=== PATIENT | male | born 1960 | race Caucasian/White ===

== ENCOUNTER 2018-05-02 16:34 | Inpatient (IN) ==
[2018-05-02] MEDS ORDERED: Nitroglycerin 0.4 MG TAB.SUBL SL PRN (16:47)
--- NOTE | 2018-05-02 16:51 | Emergency Department Note ---
Disposition Clinical Impression: Unstable angina pectoris Disposition: Admitted As Inpatient Condition: Serious Chest Pain HPI - General Stated Complaint: chest pain Time Seen by Provider: 05/02/18 16:40 Source: patient Mode of arrival: ambulatory Limitations: no limitations Vital Signs Reviewed: Yes Nursing Notes Reviewed: Yes - History of Present Illness HPI Narrative: 58 yo male presents to the ED with chest pain that started about one hour ago. He describes this as a heaviness in the center of his chest that radiates to his back and down both arms. He rates this as the worst pain in his life, saying it is a 10 out of 10. He also feels sweaty and short of breath with this episode. He denies feeling confused or dizzy at this time. He denies fevers, chills, abdominal pain, nausea, vomiting, leg pains. He admits to feeling weak.He states that he had a similar episode to this night that woke him from sleep. This episode lasted about 30 minutes and then went away on its own. He has no history of previous heart attack, or other heart problems besides high blood pressure. His father of a heart attack. He has family history of blood clots and strokes. He has diabetes but no other medical problems. Severity scale (1-10): 10 - Related Data Home Medications Medication Instructions Recorded Confirmed Furosemide [Lasix] 20 mg PO DAILY 04/01/17 01/07/18 Insulin ASPART [NovoLOG] 14 - 24 unit SQ TIDWM 04/01/17 01/07/18 Insulin DETEMIR [Levemir] 40 unit SQ HS 04/01/17 01/07/18 Lisinopril [Zestril] 10 mg PO DAILY 04/01/17 01/07/18 Pioglitazone [Actos] 15 mg PO 0800 04/01/17 01/07/18 Potassium Chloride [Klor-Con 10] 10 meq PO DAILY 04/01/17 01/07/18 Ipratropium [place] 2 spr NS BID 01/07/18 01/07/18 Allergies Allergy/AdvReac Type Severity Reaction Status Date / Time Amoxicillin Allergy Hives Verified 01/07/18 08:52 wheat Allergy Swelling Verified 01/07/18 08:52 of Lip/Tongue/Throat All systems ED: reviewed and negative except as stated. Review of Systems: As Per HPI Constitutional: Reports: as per HPI Cardiovascular: Reports: chest pain Respiratory: Reports: cough (Nonproductive), dyspnea. Denies: wheezes Gastrointestinal: Denies: abdominal pain, nausea, vomiting Chest Pain PMH - Past Medical History Medical history: Reports: arthritis, diabetes, hypertension, kidney stones Surgical history: Reports: cholecystectomy Psychiatric history: Reports: no psych history - Social History Smoking Status: Former smoker (1 pack per day for 20 years, quit over 20 years ago) Alcohol use: Reports: none Drug use: Reports: none Physical Exam Patient appears extremely anxious on exam. His eyes are watering and he looks fearful. He clutches his arm over his chest and repeatedly states that it is hard to breathe because of the heaviness over his chest. The chest pain is not reproducible to palpation. There is no rash over his chest. There are no retractions when he breathes. Heart sounds are loud, but no audible murmurs are present. Distal pulses 2+ in all extremities. Blood pressure is elevated ( 180-200/90s) in both arms. He denies paresthesias or other neurological symptoms in his extremities. - General Limitations: no limitations General appearance: in distress Course - Consultations Consultation #1: Dr. Dodge spoke with Dr. Andrew at 1800. Dr. Andrew is okay with plan of action of bring patient into the hospital, continuing nitroglycerin drip, starting heparin and adding Brilinta to the patient's medications. He states that if the patient's pain cannot be relieved by the nitroglycerin to give him a call back. Time: 18:05 Vital Signs Temperature 0 F L 05/02/18 16:39 Pulse Rate 105 05/02/18 16:39 Respiratory Rate 18 05/02/18 16:39 Blood Pressure 200/128 05/02/18 16:39 O2 Sat by Pulse Oximetry 100 05/02/18 16:39 Temperature 0 F L 05/02/18 16:39 Pulse Rate 99 05/02/18 18:07 Respiratory Rate 22 05/02/18 18:07 Blood Pressure 158/113 05/02/18 18:07 O2 Sat by Pulse Oximetry 99 05/02/18 18:07 Oxygen Delivery Oxygen Delivery Nasal Cannula Chest Pain - [facility] Narrative Medical decision making narrative: 1715 - patient's complaints are concerning for an aortic dissection. Will send to CAT scan for CT of the chest abdomen and pelvis with contrast before getting lab results back. Will order nitroglycerin trial 3 doses for chest pain followed by a repeat EKG. Since patient already chewed 2 baby aspirin today, we will not give additional aspirin. If patient's pain is alleviated by nitroglycerin we will consider doing a nitroglycerin drip. CBC, BMP, troponin, EKG ordered. 1732 - troponin came back elevated at 0.12. Patient is now back from CT scan. After continuation of nitroglycerin trial, he rates his pain as a 5 out of 10. Repeat EKG is similar to his first EKG year. Will start nitro drip and give a fluid bolus. After read from CT scan shows negative dissection, we will start heparin treatment. Will put the call out to cardio and likely admit this patient. 1799 - CT scan was negative for aortic dissection. We will begin low-dose heparin treatment protocol and add Brilinta into as per Dr. Andrew's recommendations. We will place a call out to the hospitalist for admission of this patient as soon as all lab results are back. 1918 - patient is now on 50 mics nitro drip with chest pain that he rates as a 7 out of 10. He has been given fentanyl, Brilinta, heparin. His EKG is now showing a sinus arrhythmia. Dr. Andrew has been called again and he stated he will come [facility] the [facility]. 2006 - Dr. Andrew is here and has seen the patient. He has agreed to take him to the catheter lab [facility]. 2099 - patient has departed for catheter lab. - Medical Records Medical records reviewed: Yes I reviewed the patient's medical records. - Lab Data Lab results reviewed: Yes I reviewed the patient's lab results. Result diagrams: 05/02/18 16:44 05/02/18 16:44 Lab Results 05/02/18 05/02/18 05/02/18 Range/Units 16:44 16:44 17:36 WBC 12.8 H (4.3-11.1) K/mcL RBC 5.85 H (4.19-5.50) M/mcL Hgb 16.8 (12.9-16.9) g/dL Hct 49.8 (37.5-50.1) % MCV 85.1 (83.0-100.0) fL MCH 28.7 (28.0-33.3) pg MCHC 33.7 (31.6-35.5) g/dL RDW 14.5 (11.5-14.5) % Plt Count 280 (140-400) K/mcL MPV 10.1 (9.4-12.4) fL Immature Gran % 0.4 (0-4) % Seg Neutrophils % 69.7 % Lymphocytes % 19.3 % Monocytes % 8.8 % Eosinophils % 1.3 % Basophils % 0.5 % Neutrophils # 8.9 (1.6-8.9) K/mcL Lymphocytes # 2.5 (0.6-4.6) K/mcL Monocytes # 1.1 (0.0-1.3) K/mcL Eosinophils # 0.2 (0.0-0.6) K/mcL Basophils # 0.1 (0.0-0.2) K/mcL Immature Plt Fraction 4.2 (1.1-6.1) % PT 11.7 (9.4-12.1) Seconds INR 1.0 APTT 30.5 (26.0-36.0) Seconds Heparin Anti-Xa, Unfract 0.01 L (0.30-0.70) IU/mL Sodium 138 (136-145) mEq/L Potassium 4.1 (3.5-5.1) mEq/L Chloride 105 (98-107) mEq/L Carbon Dioxide 21 L (23-29) mEq/L BUN 18 (6-20) mg/dL Creatinine 1.40 H (0.70-1.30) mg/dL Est GFR ( Amer) > 60 (> 60) Est GFR (Non-Af Amer) 52 L (> 60) BUN/Creatinine Ratio 13 (6-26) Glucose 170 H (70-105) mg/dL Calculated Osmolality 292 (280-300) Calcium 9.9 (8.6-10.3) mg/dL Troponin I 0.12 H* (< 0.04) ng/mL Blood Type Antibody Screen 05/02/18 Range/Units 17:36 WBC (4.3-11.1) K/mcL RBC (4.19-5.50) M/mcL Hgb (12.9-16.9) g/dL Hct (37.5-50.1) % MCV (83.0-100.0) fL MCH (28.0-33.3) pg MCHC (31.6-35.5) g/dL RDW (11.5-14.5) % Plt Count (140-400) K/mcL MPV (9.4-12.4) fL Immature Gran % (0-4) % Seg Neutrophils % % Lymphocytes % % Monocytes % % Eosinophils % % Basophils % % Neutrophils # (1.6-8.9) K/mcL Lymphocytes # (0.6-4.6) K/mcL Monocytes # (0.0-1.3) K/mcL Eosinophils # (0.0-0.6) K/mcL Basophils # (0.0-0.2) K/mcL Immature Plt Fraction (1.1-6.1) % PT (9.4-12.1) Seconds INR APTT (26.0-36.0) Seconds Heparin Anti-Xa, Unfract (0.30-0.70) IU/mL Sodium (136-145) mEq/L Potassium (3.5-5.1) mEq/L Chloride (98-107) mEq/L Carbon Dioxide (23-29) mEq/L BUN (6-20) mg/dL Creatinine (0.70-1.30) mg/dL Est GFR ( Amer) (> 60) Est GFR (Non-Af Amer) (> 60) BUN/Creatinine Ratio (6-26) Glucose (70-105) mg/dL Calculated Osmolality (280-300) Calcium (8.6-10.3) mg/dL Troponin I (< 0.04) ng/mL Blood Type A POSITIVE Antibody Screen NEGATIVE - Radiology Data Radiology results reviewed: Yes I reviewed the patient's radiology results. - EKG Data EKG attestation: Yes I reviewed and interpreted this EKG. EKG results narrative: 1640 - ventricular rate 107 bpm, [place] interval 136 MS, QRS duration 141 MS, QT/ QTC ratio 359/421 MS, right axis deviation. Sinus tachycardia with marked right axis deviation greater than 100. Right bundle branch block. No changes when compared to old EKG with the exception of the new tachycardia. 1719 - repeat EKG after nitroglycerin trial. Ventricular rate 103 bpm, [place] interval 162 MS, QRS duration 135 MS, QT/QTC ratio 370/429 MS, right axis deviation. Sinus tachycardia with marked right axis deviation and right bundle branch block that is unchanged from his previous EKG. minimal ST segment elevation in the inferior leads which do not meet criteria for STEMI. 191 - repeat EKG due to returning chest pain even on nitroglycerin drip. Ventricular rate 73 bpm, [place] interval 160 MS, QRS duration 123 MS, QT/QTC ratio 399/425 MS, right axis. Sinus rhythm with marked sinus arrhythmia. This is a change from his previous EKGs. Minimal ST elevations in inferior leads not meeting criteria for STEMI as seen on his previous EKG. Heart Score - Score History: Highly Suspicious EKG: Non Specific repolarisation Disturbance Age: 45-65 Risk Factors: 1-2 risk factors Troponin: Greater than 3x normal limit HEART Score Total: 7
[2018-05-02] MEDS ORDERED: Isovue-370 500 ML INFUS..BTL IV ONE (16:55)
[2018-05-02 17:06] LABS: Basophils # 0.1 K/mcL (0.0-0.2); Basophils % 0.5 %; Eosinophils # 0.2 K/mcL (0.0-0.6); Eosinophils % 1.3 %; Hematocrit 49.8 % (37.5-50.1); Hemoglobin 16.8 g/dL (12.9-16.9); Immature Granulocytes % 0.4 % (0-4); Immature Platelets 4.2 % (1.1-6.1); Lymphocytes # 2.5 K/mcL (0.6-4.6); Lymphocytes % 19.3 %; Mean Corpuscular HGB Conc 33.7 g/dL (31.6-35.5); Mean Corpuscular Hemoglobin 28.7 pg (28.0-33.3); Mean Corpuscular Volume 85.1 fL (83.0-100.0); Mean Platelet Volume 10.1 fL (9.4-12.4); Monocytes # 1.1 K/mcL (0.0-1.3); Monocytes % 8.8 %; Neutrophils # 8.9 K/mcL (1.6-8.9); Platelet Count 280 K/mcL (140-400); Red Blood Count 5.85 M/mcL (4.19-5.50); Red Cell Distribution Width 14.5 % (11.5-14.5); Segmented Neutrophils % 69.7 %
--- NOTE | 2018-05-02 17:06 | Emergency Department Note ---
Disposition Clinical Impression: Unstable angina pectoris Disposition: Admitted As Inpatient Condition: Serious Instructions: Chest Pain (ED) Referrals: Shakira Jackson CNP [Primary Care Provider] - Forms: ED Satisfaction Letter General Adult HPI - General Chief complaint: ED Chest Pain Stated complaint: chest pain Time Seen by Provider: 05/02/18 16:40 Source: patient Mode of arrival: ambulatory Limitations: no limitations Nursing Notes Reviewed: Yes Vital Signs Reviewed: Yes - History of Present Illness Pain Scale: 10 - Related Data Home Medications Medication Instructions Recorded Confirmed Furosemide [Lasix] 20 mg PO DAILY 04/01/17 01/07/18 Insulin ASPART [NovoLOG] 14 - 24 unit SQ TIDWM 04/01/17 01/07/18 Insulin DETEMIR [Levemir] 40 unit SQ HS 04/01/17 01/07/18 Lisinopril [Zestril] 10 mg PO DAILY 04/01/17 01/07/18 Pioglitazone [Actos] 15 mg PO 0800 04/01/17 01/07/18 Potassium Chloride [Klor-Con 10] 10 meq PO DAILY 04/01/17 01/07/18 Ipratropium [place] 2 spr NS BID 01/07/18 01/07/18 Allergies Allergy/AdvReac Type Severity Reaction Status Date / Time Amoxicillin Allergy Hives Verified 01/07/18 08:52 wheat Allergy Swelling Verified 01/07/18 08:52 of Lip/Tongue/Throat Past Medical History - Past Medical History Medical history: Reports: arthritis, diabetes, hypertension, kidney stones Surgical history: Reports: cholecystectomy Psychiatric history: Reports: no psych history - Social History Smoking Status: Former smoker Smokeless Tobacco Status: No Alcohol use: Reports: none Drug use: Reports: none Physical Exam - General Limitations: no limitations General appearance: in distress Course Vital Signs Temperature 0 F L 05/02/18 16:39 Pulse Rate 105 05/02/18 16:39 Respiratory Rate 18 05/02/18 16:39 Blood Pressure 200/128 05/02/18 16:39 O2 Sat by Pulse Oximetry 100 05/02/18 16:39 Temperature 0 F L 05/02/18 16:39 Pulse Rate 99 05/02/18 18:07 Respiratory Rate 22 05/02/18 18:07 Blood Pressure 158/113 05/02/18 18:07 O2 Sat by Pulse Oximetry 99 05/02/18 18:07 Oxygen Delivery Oxygen Delivery Nasal Cannula Medical Decision Making - MDM Narrative Medical decision making narrative: Patient is back from CT after 2 nitros his pain went from a 10 down to a 5. Blood pressure does come down to systolic 150. Restroom on IV nitroglycerin. If his CTA is negative for dissection or aneurysm we will start him on heparin. We will speak with cardiology. He will need admission. Abdomen/Pelvis CTA 05/02/18 16:55 IMPRESSION: 1. No evidence of aortic aneurysm or dissection. 2. No acute abnormality within the chest, abdomen, and pelvis. 3. Small fat-containing umbilical hernia with associated mild inflammatory change. 4. Enlarged prostate with evidence for chronic bladder outlet obstruction. D/ / Jose Manuel Durham MD / Jose Manuel Durham MD Interpreting Provider: Jose Manuel Durham MD Chest CTA 05/02/18 16:55 IMPRESSION: 1. No evidence of aortic aneurysm or dissection. 2. No acute abnormality within the chest, abdomen, and pelvis. 3. Small fat-containing umbilical hernia with associated mild inflammatory change. 4. Enlarged prostate with evidence for chronic bladder outlet obstruction. D/ / Jose Manuel Durham MD / Jose Manuel Durham MD Interpreting Provider: Jose Manuel Durham MD 1800 hrs.: Radiology said no signs of aortic aneurysm or dissection. We will start him on heparin. Spoke with cardiology, Dr. Shaw is on, talked to about the case and EKGs. He said to go and start him blunt and aspirin which patient started him. And then we will bring him into the hospital. He said there is any other pain issues are he starts having pain again to go ahead and give them a call. We will speak with hospitalist. 1930 hrs.: Patient continued to have pain despite his medications. He had an episode where his pain almost went completely away and when he started around the IV pain medicine and nitroglycerin his pain would go up and then down. DVT EKG still showed ischemia pattern but do show some minor ST segment elevation in lead 3 and aVF. I spoke with cardiology again, Dr. Shaw is can come to see the patient. He may need to go to [facility]. This gets cardiology. We will get a bed for him on 2 N. and then determine best disposition. [address] Shaw here has seen the patient. He will take the patient to the [facility]. He does not not meet criteria for [facility] alert but he asked us to page it as a STEMI alert to get the team here quicker. - Lab Data Result diagrams: 05/02/18 16:44 05/02/18 16:44 Lab Results 05/02/18 05/02/18 05/02/18 Range/Units 16:44 16:44 17:36 WBC 12.8 H (4.3-11.1) K/mcL RBC 5.85 H (4.19-5.50) M/mcL Hgb 16.8 (12.9-16.9) g/dL Hct 49.8 (37.5-50.1) % MCV 85.1 (83.0-100.0) fL MCH 28.7 (28.0-33.3) pg MCHC 33.7 (31.6-35.5) g/dL RDW 14.5 (11.5-14.5) % Plt Count 280 (140-400) K/mcL MPV 10.1 (9.4-12.4) fL Immature Gran % 0.4 (0-4) % Seg Neutrophils % 69.7 % Lymphocytes % 19.3 % Monocytes % 8.8 % Eosinophils % 1.3 % Basophils % 0.5 % Neutrophils # 8.9 (1.6-8.9) K/mcL Lymphocytes # 2.5 (0.6-4.6) K/mcL Monocytes # 1.1 (0.0-1.3) K/mcL Eosinophils # 0.2 (0.0-0.6) K/mcL Basophils # 0.1 (0.0-0.2) K/mcL Immature Plt Fraction 4.2 (1.1-6.1) % PT 11.7 (9.4-12.1) Seconds INR 1.0 APTT 30.5 (26.0-36.0) Seconds Heparin Anti-Xa, Unfract 0.01 L (0.30-0.70) IU/mL Sodium 138 (136-145) mEq/L Potassium 4.1 (3.5-5.1) mEq/L Chloride 105 (98-107) mEq/L Carbon Dioxide 21 L (23-29) mEq/L BUN 18 (6-20) mg/dL Creatinine 1.40 H (0.70-1.30) mg/dL Est GFR ( Amer) > 60 (> 60) Est GFR (Non-Af Amer) 52 L (> 60) BUN/Creatinine Ratio 13 (6-26) Glucose 170 H (70-105) mg/dL Calculated Osmolality 292 (280-300) Calcium 9.9 (8.6-10.3) mg/dL Troponin I 0.12 H* (< 0.04) ng/mL Blood Type Antibody Screen 05/02/18 Range/Units 17:36 WBC (4.3-11.1) K/mcL RBC (4.19-5.50) M/mcL Hgb (12.9-16.9) g/dL Hct (37.5-50.1) % MCV (83.0-100.0) fL MCH (28.0-33.3) pg MCHC (31.6-35.5) g/dL RDW (11.5-14.5) % Plt Count (140-400) K/mcL MPV (9.4-12.4) fL Immature Gran % (0-4) % Seg Neutrophils % % Lymphocytes % % Monocytes % % Eosinophils % % Basophils % % Neutrophils # (1.6-8.9) K/mcL Lymphocytes # (0.6-4.6) K/mcL Monocytes # (0.0-1.3) K/mcL Eosinophils # (0.0-0.6) K/mcL Basophils # (0.0-0.2) K/mcL Immature Plt Fraction (1.1-6.1) % PT (9.4-12.1) Seconds INR APTT (26.0-36.0) Seconds Heparin Anti-Xa, Unfract (0.30-0.70) IU/mL Sodium (136-145) mEq/L Potassium (3.5-5.1) mEq/L Chloride (98-107) mEq/L Carbon Dioxide (23-29) mEq/L BUN (6-20) mg/dL Creatinine (0.70-1.30) mg/dL Est GFR ( Amer) (> 60) Est GFR (Non-Af Amer) (> 60) BUN/Creatinine Ratio (6-26) Glucose (70-105) mg/dL Calculated Osmolality (280-300) Calcium (8.6-10.3) mg/dL Troponin I (< 0.04) ng/mL Blood Type A POSITIVE Antibody Screen NEGATIVE Critical Care Time Critical Care Time: Yes Total Critical Care Time: 50 Attestation: Excluding any separately billable procedures. Attestation Statement - Attestation Attestation: This documentation is done with the assistance of Dragon dictation. Despite efforts made to ensure accuracy, there may be inaccuracies in community outreach manager or spelling and typographical errors. I examined this patient and my medical decision-making was reviewed with the Resident Physician. I agree with the documented findings, disposition and treatment plan as described except to the extent set forth below. What was like a sheet m patient seen and evaluated on arrival by Dr. Moore and myself, I agree with her evaluation and management plan, supervise care the patient's stay. Patient having chest pain that started today it is in the center of his chest since a pressure and heaviness. Both of his arms feel tingling he says but he does not have pain no pain in his jaw or his neck he is a little diaphoretic no shortness of breath pains going into his back denies any abdominal pain. Blood pressure here was elevated at 200 over palp. He has a history of hypertension. Denies abdominal pain no pain in his calves or his legs. He did take aspirin prior to arrival. Rest her nitroglycerin trial cardiac workup but because of the symptoms I worry about dissection. Sore and a do a CT with contrast of chest abdomen pelvis to look at his aorta. His initial EKG has some concerning areas but nothing that meets Criteria and His Pain Is Actually Getting Better at This Time. We Will Repeat an EKG Once His Back from His CT. He Will Always See Need Admission.
[2018-05-02 17:18] LABS: BUN/Creatinine Ratio 13 (6-26); Blood Urea Nitrogen 18 mg/dL (6-20); Calcium 9.9 mg/dL (8.6-10.3); Carbon Dioxide 21 mEq/L (23-29); Chloride 105 mEq/L (98-107); Glucose 170 mg/dL (70-105); Osmolality,Calculated 292 (280-300); Potassium 4.1 mEq/L (3.5-5.1); Sodium 138 mEq/L (136-145); eGFR For African Americans > 60 (> 60); eGFR For Non-African Americans 52 (> 60)
[2018-05-02 17:23] LABS: Troponin I 0.12 ng/mL (< 0.04)
[2018-05-02] MEDS ORDERED: Nitroglycerin 25 MG/250 ML INFUS..BTL IVC SCH (17:30)
[2018-05-02] MEDS: 0.9 % Sodium Chloride 1,000 ML IVC SCH ×2 (17:35→23:10)
[2018-05-02] MEDS ORDERED: *HR* Heparin 5,000 UNIT/ML VIAL IVP ONE (18:01)
[2018-05-02] MEDS ORDERED: *HR* Heparin 5,000 UNIT/ML VIAL IVP PRN ×2 (18:01)
[2018-05-02 18:03] LABS: Prothrombin Time 11.7 Seconds (9.4-12.1)
[2018-05-02] MEDS ORDERED: *HR* Ticagrelor 90 MG TABLET PO ONE (18:03)
[2018-05-02 18:06] LABS: Activated Partial Thrombo Time 30.5 Seconds (26.0-36.0)
[2018-05-02] MEDS ORDERED: Heparin 25,000 UNIT/500 ML D5W 25,000 UNIT/500 ML BAG IVC SCH (18:15)
[2018-05-02 18:23] LABS: Heparin anti-factor XA UFH 0.01 IU/mL (0.30-0.70)
[2018-05-02] MEDS ORDERED: *HR* FentaNYL (PF) 100 MCG/2 ML VIAL IVP ONE ×2 (18:41→19:39)
[2018-05-02] MEDS ORDERED: Ondansetron 8 MG in 0.9 % Sodium Chloride 50 ML IVPB ONE (18:43)
[2018-05-02] MEDS ORDERED: Ondansetron 4 MG/2 ML VIAL IVP ONE (18:55)
[2018-05-02] MEDS ORDERED: Furosemide 40 MG/4 ML VIAL ONE (20:10)
[2018-05-02] MEDS ORDERED: Furosemide 40 MG/4 ML VIAL IVP ONE (20:11)
[2018-05-02] MEDS ORDERED: *HR* HYDROmorphone (PF) 1 MG/ML SYRINGE IVP ONE (20:29)
--- NOTE | 2018-05-02 20:30 | Cardiology Consult Note ---
Date of Encounter: 05/02/18 Time of Encounter: 20:28 Assessment and Plan (1) Unstable angina pectoris Current Visit: Yes Status: Acute Stuttering inferior posterior MA with dynamic ST changes on serial EKGs. Risks benefits and alternatives discussed with patient and he agrees to proceed with a left heart catheterization. Patient has been loaded on brilinta/aspirin/ heparin in the emergency department Discussion w patient/family: The assessment and plan as outlined above was discussed with the patient and/or family members who expressed understanding and agreement. All questions were answered. Thank you for involving us in the care of your patient. Please call with any questions. History of Present Illness Consult date: 05/02/18 Consult reason: Chest Pain Chief complaint: Pain in my chest History of present illness: Mr. Long is a 58 year old male with diabetes, hypertension ex-smoker presents to the emergency department for chest pain. Patient states his chest pain has been stuttering on and off over the last few days. He describes his chest pain as retrosternal radiating to his back currently his chest pain has improved on a significant amount of IV nitroglycerin but continues to have intrascapular type pain. He describes associated diaphoresis and shortness of breath. CT of the chest was obtained to rule out PE and aortic dissection. Initial troponin is 0.12 and EKG shows signs of inferior ischemia with a stuttering inferior ST elevation pattern. Due to ongoing chest pain and ischemic changes we will proceed with an emergent left heart catheter. Patient understands risks benefits and alternatives and has agreed to proceed. Past Med Surg Social Fam HX - Past Medical History Medical history: arthritis, diabetes, hypertension, kidney stones Additional medical history: see attached records, BPH, shingles, bilateral carpal tunnel, hydronephrosis, neurogenic bladder (self catheterizes), deviated nasal septum, hypertrophy Psychiatric history: no psych history - Past Surgical History Surgical History: cholecystectomy Additional surgical history: left knee surgery, right carpal tunnel, lasik, phlebectomy, septoplasty - Social History Smoking Status: Former smoker Smokeless Tobacco Status: No Alcohol use: none Drug use: none Medications and Allergies Furosemide [Lasix] 20 mg PO DAILY 04/01/17 [History] Insulin ASPART [NovoLOG] 14 - 24 unit SQ TIDWM 04/01/17 [History] Insulin DETEMIR [Levemir] 40 unit SQ HS 04/01/17 [History] Lisinopril [Zestril] 10 mg PO DAILY 04/01/17 [History] Pioglitazone [Actos] 15 mg PO 0800 04/01/17 [History] Potassium Chloride [Klor-Con 10] 10 meq PO DAILY 04/01/17 [History] Ipratropium [place] 2 spr NS BID 01/07/18 [History] 3 Allergy/AdvReac Type Severity Reaction Status Date / Time Amoxicillin Allergy Hives Verified 01/07/18 08:52 wheat Allergy Swelling Verified 01/07/18 08:52 of Lip/Tongue/Throat All Systems Review: The remainder of the systems were reviewed and are negative Physical Examination Vital Signs, Last 4 Hours Temp Pulse Resp BP Pulse Ox 05/02/18 18:07 99 22 158/113 99 05/02/18 17:35 104 20 152/80 98 05/02/18 16:46 104 20 200/128 100 05/02/18 16:45 100 05/02/18 16:39 0 F L 105 18 200/128 100 General: Conversant, No Apparent Distress HEENT: Atraumatic, Normocephaly, Mucus Membranes Moist Neck: No JVD, Normal carotid pulses Cardiac: Reg Rate and Rhythm, Normal S1 and S2, No Murmur Lungs: Normal Breath Sounds, No Wheeze, Rales, Rhonchi Neuro: Alert and responsive, No focal deficits noted Abdomen: Soft, Non-Tender Skin: No rashes noted on visualized skin Musculoskeletal: No Chest Wall Tenderness Extremities: No Clubbing, No Cyanosis, No Edema, Normal Pulses Results 05/02/18 16:44 05/02/18 16:44 Lab Results 05/02/18 05/02/18 05/02/18 16:44 16:44 17:36 WBC 12.8 H Hgb 16.8 Hct 49.8 Plt Count 280 INR 1.0 APTT 30.5 Sodium 138 Potassium 4.1 Chloride 105 Carbon Dioxide 21 L BUN 18 Creatinine 1.40 H Glucose 170 H Calcium 9.9 Troponin I 0.12 H* Consult Discharge Plan - Plan Instructions: Chest Pain (ED) Referrals: Shakira Jackson, CERTIFIED PEDORTHOTIST [Primary Care Provider] -
[2018-05-02] MEDS ORDERED: *HR* HYDROmorphone (PF) 1 MG/ML SYRINGE ONE (20:33)
--- NOTE | 2018-05-02 20:34 | Pre-Sedation Evaluation ---
Pre-sedation evaluation - Pre-sedation checklist Date of procedure: 05/02/18 Procedure: C Recent Vitals: Last Vital Signs Temp 0 F L 05/02/18 16:39 Pulse 99 05/02/18 18:07 Resp 22 05/02/18 18:07 BP 158/113 05/02/18 18:07 Pulse Ox 99 05/02/18 18:07 H&P (including ROS) documented in medical record: Yes Previous reaction to sedatives/anesthetics: No Dietary Status: NPO after Midnight Dentition: No loose teeth or bridges ASA Classification *see protocol: CLASS II-Mild systemic disease Cardiac Registry (Cardio Only) - Functional Capacity Functional Capacity: >=4 METS with symptoms - Clincal Frailty Scale Clinical Frailty Scale: Vulnerable
[2018-05-02] MEDS ORDERED: *HR* Heparin 10,000 UNIT/10 ML VIAL ONE (20:35)
[2018-05-02] MEDS ORDERED: 0.9 % Sodium Chloride 1,000 ML ONE ×2 (20:35→21:11)
[2018-05-02] MEDS ORDERED: Heparin 1,000 UNITS/500 mL 500 ML ONE (20:35)
[2018-05-02] MEDS ORDERED: Nitroglycerin 1,000 MCG/10 ML VIAL IV ONE (20:35)
[2018-05-02] MEDS ORDERED: ISOVUE-370 200 ML INFUS..BTL IV ONE ×2 (20:35→21:04)
[2018-05-02] MEDS ORDERED: *HR* FentaNYL (PF) 100 MCG/2 ML VIAL ONE (21:04)
[2018-05-02] MEDS ORDERED: *HR* Midazolam HCl 2 MG/2 ML VIAL ONE (21:04)
[2018-05-02] MEDS ORDERED: Tirofiban 12.5 MG/250ML 12.5 MG/250 ML BAG ONE (21:04)
[2018-05-02] MEDS ORDERED: *HR* Atropine Sulfate 1 MG/10 ML SYRINGE ONE (21:19)
[2018-05-02] MEDS ORDERED: *HR* Ticagrelor 90 MG TABLET ONE (21:47)
[2018-05-02] MEDS ORDERED: Tirofiban 12.5 MG/250ML 12.5 MG/250 ML BAG IVC SCH (22:00)
--- NOTE | 2018-05-02 22:07 | Invasive Diagnostic Lab Proc ---
Name: Mj Long Date of Study: 05/02/2018 Date: 1960 Ht: 66.1in Medical Record#: [id number] Age: 58 Wt: 255.74lb Gender: Male BSA: 2.22 Order #: [id number] BMI: 41.1 Physicians Procedure Physician: Neva Andrew MD Referring MD: Referring MD: Staff Name Position Time In Vanesa Montano RT (R) Monitor 09:05 PM Demond Rivas RN Scrub 09:05 PM Jodi Torres RN Multicraft Operator 09:05 PM Sarah Sibley RN Multicraft Operator 09:05 PM Indications Indication Non-Stemi Procedures Performed Procedure L HRT ARTERY/VENTRICLE ANGIO PRQ CARD NOAH STENT W/ANGIO 1 VSL Pre-Procedure Checklist Informed consent is complete signed and on chart. H&P is on chart. ID band is on and ID verified with patient. Patient NPO for procedure The procedure was described for the patient and questions were answered. Blood Pressure: 125/71 ECG is on chart. Rhythm: NSR Plan of Care Patient will tolerate the procedure without complications. Adequate level of comfort will be maintained. Hemodynamics will remain stable Patient will recover from procedure without complications. Respiratory function will be maintained. Cardiac rhythm will remain stable. Patient temperature will be maintained. Patient and/or family have verbalized understanding of the procedure. Patient Education Chief Complaint/Reason for Test: Cardiac Cath Developmental Category: Adult (18-64 years) Developmentally Appropriate for Age: Yes Learning Barriers: None Education Needs: Procedure Education Method: Verbal Information Taught: Cardiac Cath Educational Evaluation: Able to repeat information Intravenous Access Time IV Size Location DC'd Fluid/Drip Rate Units RN 09:07 PM 20g 1 1/4" Patent On Arrival Lt Antecubital 0.9NaCl 25 ml/hr Sarah Sibley RN 09:07 PM 18g 1 1/4" Patent On Arrival Rt Antecubital Allergies wheat Amoxicillin Vital Signs Time BP (mmHg) HR (bpm) O2 Sat. RR (bpm) LOC 09:08 PM 125 / 71 72 99 % 16 09:10 PM / % 4 = Oriented but drowsy 09:10 PM / % 4 = Oriented but drowsy 09:25 PM / % 4 = Oriented but drowsy 09:03 PM 120 / 81 73 99 % 20 09:07 PM 125 / 71 75 99 % 32 09:12 PM 113 / 72 90 96 % 10 09:18 PM 124 / 69 87 95 % 12 09:22 PM 127 / 71 90 95 % 18 09:27 PM 127 / 70 89 95 % 12 09:32 PM 106 / 61 60 94 % 23 09:37 PM 109 / 54 79 95 % 15 09:42 PM 89 / 65 81 97 % 27 09:44 PM 100 / 73 82 97 % 10 09:47 PM 109 / 63 75 98 % Procedural Medications Time Medication Dose Units Method Given By 08:57 PM Oxygen 2 L/min nasal cannula Sarah Sibley RN 09:08 PM Versed 1 mg Intravenous Jodi Torres RN 09:08 PM Fentanyl 50 mcg Intravenous Jodi Torres RN 09:10 PM Lidocaine 2% 18 ml Subcutaneous Neva Andrew MD 09:17 PM Aggrastat Bolus: 58 ml Intravenous Sarah Sibley RN 09:17 PM Aggrastat 12.5mg/250ml 21 ml Intravenous Sarah Sibley RN 09:20 PM Heparin 4000 units Intravenous Sarah Sibley RN 09:36 PM Nitroglycerin 100 mcg Intracoronary Riley Andrew MD 09:37 PM Nitroglycerin 100 mcg Intracoronary Riley Andrew MD 09:46 PM Brilinta 180 mg Orally Sarah Sibley RN ASA Classification: CLASS II- Mild systemic disease (i.e. well-controlled diabetes, hypertension, asthma, cigarette smoking) Coby Score Preprocedure Postprocedure Activity 2- Moves 4 extremities sustained head lift Activity 2- Moves 4 extremities sustained head lift Circulation 2- SBP +/= 20 points of pre-anesthetic level Circulation 2- SBP +/= 20 points of pre-anesthetic level Consciousness 2- Awake and alert oriented x 3 Consciousness 2- Awake and alert oriented x 3 O2 Saturation 2- Able to maintain O2 satruation of 92% on room air O2 Saturation 2- Able to maintain O2 satruation of 92% on room air Respiratory 2- Able to deep breathe and cough well Respiratory 2- Able to deep breathe and cough well Total Score 10 Total Score 10 Contrast Agent: Isovue Diagnostic Contrast: 80 ml Total Contrast: 80 ml Fluoro Dose: 42083 mGy Procedure Log Time Note Enter By 08:56 PM 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 well-controlled diabetes, hypertension, asthma, cigarette smoking) scoates 08:57 PM Meet and greet completed scoates 08:57 PM Sign in performed according to hospital policy. scoates 08:57 PM Procedure start 20:57 scoates 08:57 PM Time: 20:57 Oxygen on at 2 L/min per nasal cannula by Sarah Sibley RN scoates 08:57 PM Time: 20:57 Patient comfortable and pain free: Yes scoates 09:01 PM CathStat 09:01 PM Vitals capture started with the following parameters, Patient=Adult, Interval=5 min, Initial Uzoqdhte=569 mmHg, Deflation Rate=5 mmHg, Cuff placed on Right Arm 09:02 PM Recorded ECG: HR=83 Condition=Condition 1 09:03 PM HR=73 bpm, HZRM=792/81 mmhg, SpO2=99.0 %, Resp=20 B/min, Comment=NSR 09:05 PM Vanesa Montano RT (R) Position: Monitor Time in: 21:05 scoates 09:05 PM Demond Rivas RN Position: Scrub Time in: 21:05 scoates 09:05 PM Jodi Torres RN Position: Multicraft Operator Time in: 21:05 scoates 09:06 PM Sarah Sibley RN Position: Multicraft Operator Time in: 21:05 scoates 09:06 PM Patient charges- Angio tray pack, Navilyst 3mm J, Pulse Oximetry and ACIST tubing and transducer scoates 09:06 PM Case Delayed No scoates 09:06 PM Hair removed from procedure site in holding area using clippers. Bilateral groin prepped with Chloraprep by Vanesa Montano RT (R), then patient was draped. Skin intact. scoates 09:06 PM Patient having 8/[address] Andrew aware scoates 09:07 PM Pressure channel 1 zeroed. 09:07 PM HR=75 bpm, ZSVT=983/71 mmhg, SpO2=99.0 %, Resp=32 B/min, Comment=NSR 09:08 PM Time: 21:08 Versed 1 mg Intravenous Given by [place], Jodi RN scoates 09:09 PM Time: 21:08 Fentanyl 50 mcg Intravenous Given by Jodi Torres RN scoates 09:09 PM Pressure channel 1 zero failed. 09:09 PM Pressure channel 1 zeroed. 09:10 PM Time: 21:10 Patient comfortable and pain free: Yes [email or web address] 09:10 PM Time: 21:10LOC: 4 = Oriented but drowsy [email or web address] 09:10 PM Time out performed according to hospital policy [email or web address] 09:10 PM Time: 21:10 18 ml Lidocaine 2% to right groin Subcutaneous Given by Neva Andrew MD [email or web address] 09:11 PM Micro-Introducer Kit utilized for sheath placement [email or web address] 09:12 PM Bolus angiogram of right Femoral complete:2 ml/sec for a total of 4 mls [email or web address] 09:12 PM HR=90 bpm, YIKI=429/72 mmhg, SpO2=96.0 %, Resp=10 B/min, Comment=NSR 09:13 PM Access obtained by percutaneous puncture. 6Fr 10cm Terumo [place] sheath placed in right Femoral artery. [id number] [email or web address] 09:13 PM 1500 mls of urine removed from Koo catheter bag per Sarah Sibley RN. [email or web address] 09:13 PM 0.035 145cm Navilyst 3mmJ wire [id number] [email or web address] 09:14 PM 5Fr FL 4 catheter inserted over the wire [facility] [email or web address] 09:14 PM LCA angiography performed in multiple views. [email or web address] 09:15 PM Recorded Pressure: Ao, HR=85, Condition=Condition 1 (Aorta) Ao 101/75/88 09:16 PM Catheter removed [email or web address] 09:16 PM 6Fr JR 4 Runway guide catheter was used to cannulate the PCI vessel successfully. reused? No [email or web address] 09:16 PM .014 [employer] [place] 190cm guide wire across target lesion- successful. reused? No [email or web address] 09:16 PM Inflation device was opened. [email or web address] 09:17 PM Time: 21:17 Aggrastat Bolus: 58 ml Intravenous Given by Sarah Sibley RN [place] pump [email or web address] 09:18 PM Time: 21:17 Aggrastat 12.5mg/250ml 21 ml Intravenous Given by Sarah Sibley RN [place] pump [email or web address] 09:18 PM HR=87 bpm, PBIZ=909/69 mmhg, SpO2=95.0 %, Resp=12 B/min, Comment=NSR 09:18 PM RCA angiography performed in multiple views. [email or web address] 09:19 PM Recorded Pressure: Ao, HR=92, Condition=Condition 1 (Aorta) Ao 111/76/92 09:20 PM Time: 21:20 Heparin 4000 units Intravenous Given by Sarah Sibley RN [email or web address] 09:21 PM 2.0 mm x 12 mm Emerge Monorail balloon across target lesion- successful. reused? No [email or web address] 09:21 PM Balloon inflated @ 6 cynthia for 10 seconds [email or web address] 09:22 PM Balloon inflated @ 6 cynthia for 7 seconds [email or web address] 09:22 PM HR=90 bpm, YVVB=164/71 mmhg, SpO2=95.0 %, Resp=18 B/min, Comment=NSR 09:22 PM Balloon catheter removed intact. [email or web address] 09:25 PM Time: 21:10 Patient comfortable and pain free: Yes [email or web address] 09:25 PM Time: 21:10LOC: 4 = Oriented but drowsy [email or web address] 09:27 PM Recorded Pressure: Ao, HR=89, Condition=Condition 1 (Aorta) Ao 110/80/93 09:27 PM HR=89 bpm, RKDP=458/70 mmhg, SpO2=95.0 %, Resp=12 B/min, Comment=NSR 09:28 PM 3.0mm x 20mm Synergy drug-eluting stent across target lesion- successful Lot #[id number] [email or web address] 09:30 PM Stent deployed @ 11 cynthia for 16 seconds [email or web address] 09:31 PM Balloon inflated @ 16 cynthia for 14 seconds [email or web address] 09:32 PM Stent delivery system removed intact. [email or web address] 09:32 PM HR=60 bpm, JMMQ=631/61 mmhg, SpO2=94.0 %, Resp=23 B/min, Comment=NSR 09:33 PM 3.0mm x 16mm Synergy drug-eluting stent across target lesion- successful Lot #[id number] [email or web address] 09:34 PM Stent deployed @ 9 cynthia for 13 seconds [email or web address] 09:35 PM Stent balloon reinflated @ 14 cynthia for 10 seconds [email or web address] 09:35 PM Stent delivery system removed intact. [email or web address] 09:36 PM Time: 21:36 Nitroglycerin 100 mcg Intracoronary Given by Riley Andrew MD [email or web address] 09:37 PM Time: 21:37 Nitroglycerin 100 mcg Intracoronary Given by Riley Andrew MD [email or web address] 09:37 PM HR=79 bpm, NHMW=166/54 mmhg, SpO2=95.0 %, Resp=15 B/min, Comment=NSR 09:38 PM Guide wire removed intact. [email or web address] 09:38 PM Coronary Dominance: right [email or web address] 09:38 PM Guide catheter removed intact. [email or web address] 09:38 PM 5Fr Pigtail catheter inserted over the wire DNC [email or web address] 09:39 PM Catheter selectively placed in left ventricle [email or web address] 09:39 PM Bolus angiogram of left Ventricle complete: 10 ml/sec for a total of 20 mls [email or web address] 09:39 PM Recorded Pressure: LV, HR=81, Condition=Condition 1 (Left Ventricle) LV 99/12/14 09:39 PM Recorded Pressure: LV, HR=85, Condition=Condition 1 (Left Ventricle) LV 83/8/8 09:40 PM Recorded Pressure: LV, HR=69, Condition=Condition 1 (Left Ventricle) LV 96/10/20 09:40 PM Time: 21:25 Patient comfortable and pain free: [email or web address] 09:40 PM Time: 21:25LOC: 4 = Oriented but drowsy [email or web address] 09:41 PM Recorded Pressure: LV, Ao, HR=61, Condition=Condition 1 (Left Ventricle) LV 108/0/12, (Aorta) Ao 97/63/75 09:41 PM Catheter removed [email or web address] 09:42 PM Procedure completed at 21:42 05/02/2018 [email or web address] 09:42 PM Did you address IKEL flow and Dominance? Yes [email or web address] 09:42 PM HR=81 bpm, NIBP=89/65 mmhg, SpO2=97.0 %, Resp=27 B/min, Comment=NSR 09:42 PM Sign out completed: Radiation Dose 1156.11 mGy, 97647 cGy/cm2 Fluoro Time: 6.7 Isovue 370 - 200ml contrast 98 ml given by Neva Andrew MD. Complications: NoneCardiac Rehab Consult needed: YesConfirmed administered medications: Yes [email or web address] 09:43 PM Isovue 370 - 200ml,1 Bottle(s) used. [email or web address] 09:43 PM Arterial sheath pulled, Angio-seal closure device used and was Successful S/N. [email or web address] 09:43 PM Estimated Blood Loss: minimal [email or web address] 09:43 PM NIBP STAT measurement started. 09:43 PM Post ECG NSR [email or web address] 09:43 PM 21:43 Post Pulses Bilateral DP & PT 1+ [email or web address] 09:44 PM Information taught Cardiac Cath, PCI, and Angioseal [email or web address] 09:44 PM Education needs Procedure, Plan of Care, and Disease Process [email or web address] 09:44 PM Learning barriers :None [email or web address] 09:44 PM Education Methods Verbal [email or web address] 09:44 PM Education evaluation Able to repeat information [email or web address] 09:44 PM HR=82 bpm, DBCI=070/73 mmhg, SpO2=97.0 %, Resp=10 B/min, Comment=NSR 09:44 PM Delay to floor No [email or web address] 09:44 PM Family placed in consult room. [email or web address] 09:44 PM Complications: None [email or web address] 09:46 PM Time: 21:46 Brilinta 180 mg Orally Given by Sarah Sibley RN [email or web address] 09:47 PM HR=75 bpm, PQQS=879/63 mmhg, SpO2=98.0 %, Comment=NSR 09:59 PM Report given to Ana MONK Pt taken to ICU Room #1. 21:59 [email or web address] 09:59 PM Delay to floor No [email or web address] 09:59 PM Patient out of room: 21:59 [email or web address] Complications Complication None None Hemodynamics Pressures Site Systolic/A Wave Diastolic/V Wave Mean AO 101 75 88 AO 111 76 92 AO 110 80 93 LV 99 12 14 LV 108 0 12 AO 97 63 75 LV 83 8 8 LV 96 10 20 Post Procedure Information Rhythm: NSR Post procedural instructions were not given Closure Device Time Device Success/Fail 05/02/2018 9:44:00 PM Angio-Seal VIP Successful Pulses Time Site Pre-Procedure Post-Procedure Note 05/02/2018 8:56:00 PM Bilateral DP & PT 1+ 9:43:00 PM Bilateral DP & PT 1+ Updated by RT Stephen(R) on 05/02/2018 10:01:27 PM electronically signed on 05/02/2018 10:01:58 PM with status of Final
[2018-05-02] MEDS ORDERED: Naloxone 0.4 MG/ML INJ IVP PRN (23:11)
[2018-05-02] MEDS ORDERED: Acetaminophen 325 MG TABLET PO PRN (23:11)
[2018-05-02] MEDS ORDERED: 0.9 % Sodium Chloride 1,000 ML IVC SCH (23:15)
[2018-05-02] MEDS ORDERED: *HR* Morphine 2 MG/ML SYRINGE IVP PRN (23:16)
[2018-05-02] MEDS ORDERED: *HR* Dextrose 50 % in Water (Syg) 50 ML SYRINGE IVP PRN (23:17)
[2018-05-02] MEDS ORDERED: D5% in Water 1,000 ML IVC PRN (23:17)
[2018-05-02] MEDS ORDERED: Dextrose Gel 15 GM/37.5 ML TUBE PO PRN ×2 (23:17)
--- NOTE | 2018-05-02 23:27 | Internal Med History&Physical ---
Date of Encounter: 05/02/18 Time of Encounter: 22:55 Internal Medicine - H&P: HPI Chief complaint: chest pain, SOB Admitted From: Emergency Dept Plans for Post Hospital Care: Home History of present illness: Mr. Long is a 58 year old male who presented to the ER earlier today with complaints of chest pain, diaphoresis, and shortness of breath. He was found to have an evolving heart attack and had unstable angina. ER was concerned that he might have been having a STEMI and, as such, cardiology was consulted by the ER. Dr. Andrew saw him in the ER and decided to take him to the [facility]. He underwent successful PTCA and stenting of 2 arteries. He has almost complete pain relief now. He was taken to the ICU for post-catheterization monitoring and care. Dr. Andrew contacted me and asked me to admit patient and cardiology will follow along in consultation. I saw patient in ICU, and he appears to be stable and is essentially pain-free now. He still has minimal lingering pain in his left arm but he has almost complete relief now. He denies any shortness of breath or diaphoresis. He confirms above history and states that his symptoms started while he was working on some plumbing on his house. He has never had a heart attack before. His cardiac risk factors include diabetes, hypertension, and family history. He denies any prior kidney disease, but his labs suggest acute kidney injury. He denies any prior history of diabetic nephropathy. He has had diabetes for 8 years. His last A1c has been around 7.8. Past Med Surg Social Fam HX - Past Medical History Attestation: Yes The following information was validated with the patient. Source: patient, old records reviewed, obtained from family Medical history: arthritis, diabetes, hypertension, kidney stones Additional medical history: see attached records, BPH, shingles, bilateral carpal tunnel, hydronephrosis, neurogenic bladder (self catheterizes), deviated nasal septum, hypertrophy Psychiatric history: no psych history - Past Surgical History Surgical History: cholecystectomy, sinus surgery Additional surgical history: LASIK. R. CARPAL TUNNEL. PHLEBECTOMY - Social History Smoking Status: Former smoker Smokeless Tobacco Status: No Alcohol use: none Drug use: none Current living situation: Home, With Family Activity Level: Independent ambulation Recent Out of Country Travel Within the Last 8 Weeks: No - Family History Father Living Status: Cause of : MASSIVE OR Mother Hx Family Cardiac Disorders: No Internal Medicine - H&P: Meds Furosemide [Lasix] 20 mg PO DAILY 04/01/17 [History] Insulin ASPART [NovoLOG] 14 - 24 unit SQ TIDWM 04/01/17 [History] Insulin DETEMIR [Levemir] 40 unit SQ HS 04/01/17 [History] Lisinopril [Zestril] 10 mg PO DAILY 04/01/17 [History] Pioglitazone [Actos] 15 mg PO 0800 04/01/17 [History] Potassium Chloride [Klor-Con 10] 10 meq PO DAILY 04/01/17 [History] Ipratropium [place] 2 spr NS BID 01/07/18 [History] 3 Allergy/AdvReac Type Severity Reaction Status Date / Time Amoxicillin Allergy Hives Verified 01/07/18 08:52 wheat Allergy Swelling Verified 01/07/18 08:52 of Lip/Tongue/Throat - Constitutional Constitutional: no chills, no fever(s) - EENT Eyes: no change in vision Ears: no ear pain, no tinnitus Nose, mouth and throat: no nasal congestion, no sore throat - Cardiovascular Cardiovascular ROS IM: chest pain, diaphoresis, dyspnea, dyspnea on exertion, no syncope - Respiratory Respiratory: no cough, no hemoptysis, no chest congestion, no excessive phlegm production, no change in phlegm color - Gastrointestinal Gastrointestinal: no abdominal pain, no diarrhea, no hematemesis, no hematochezia, no melena, no vomiting - Genitourinary Genitourinary ROS male: no dysuria, no flank pain, no hematuria - Musculoskeletal Musculoskeletal ROS IM: no back pain, no myalgias - Integumentary Integumentary IM: no rash, no jaundice - Neurological Neurological ROS: no dizziness, no focal weakness, no headache(s) - Psychiatric Psychiatric: no anxiety, no depression - Endocrine Endocrine IM: no polydipsia, no polyuria - Allergic/Immunologic Allergic/Immunologic: no GI upset with certain foods - Constitutional Vitals: Temp Pulse Resp BP Pulse Ox 98.2 F 62 19 113/73 99 05/02/18 22:43 05/02/18 23:00 05/02/18 23:00 05/02/18 23:00 05/02/18 23:00 General appearance: Present: cooperative, A&O X 3, pleasant, no acute distress, answers questions appropriately - Head Head exam: Present: atraumatic, normal inspection - Eye Eye exam: Present: EOMI, normal appearance, PERRL. Absent: scleral icterus Pupils: Present: normal accommodation - ENT ENT exam: Present: mucous membranes dry, normal exam, normal oropharynx - Neck Neck exam general surgery: Present: full ROM, supple. Absent: tenderness, nuchal rigidity, thyromegaly - Respiratory Respiratory exam: Present: CTAB. Absent: chest wall tenderness, rales, respiratory distress, rhonchi, wheezes - Cardiovascular Cardiovascular exam: Present: RRR, +S1, +S2. Absent: diastolic murmur, systolic murmur - GI/Abdominal GI/Abdominal exam: Present: normal bowel sounds, soft. Absent: guarding, hepatomegaly, mass, rebound, splenomegaly, tenderness - Extremities Exam Extremities exam: Present: full ROM, radial pulses palpable and symmetrical. Absent: calf tenderness, pedal edema, tenderness, warm - Neurological Exam Neurological exam: Present: alert, CN II-XII intact, oriented X3, no focal deficits - Psychiatric Psychiatric exam: Present: normal affect, normal mood - Skin Skin exam: Present: dry, intact, warm Internal Med - H&P Results - Labs CBC & Chem 7: 05/02/18 16:44 05/02/18 16:44 - EKG Data -: EKG Interpreted by Myself EKG shows normal: sinus rhythm (inferior ST-T changes) - Diagnostic Studies CT scan - chest Additional comments: Report reviewed -- no aortic dissection - Assessment and plan (1) Unstable angina pectoris Current Visit: Yes Status: Acute Assessment and plan: 1. S/P LHC and PCI/Stent per Dr. Andrew. 2. Will continue ASA, start Lipitor. 3. Continue Brilinta per Cardiology. 4. Hold BB for now due to relative bradycardia from inferior OR. 5. Hold EDGAR due to DEBI. 6. Trend troponins and EKG's. 7. Will order ECHO for the morning. 8. Cardiology on consult. 9. Heparin gtt per protocol per cardiology. (2) IDDM (insulin dependent diabetes mellitus) Current Visit: Yes Status: Chronic Assessment and plan: 1. Will place on SSI and monitor glucose. 2. Order A1C. 3. Verify home meds and resume basal insulin when verified. 4. Hold home oral meds. (3) Acute kidney injury Current Visit: Yes Status: Acute Assessment and plan: 1. Hold Lasix and EDGAR. 2. IVF hydration. 3. Monitor I/O and UOP. 4. Monitor renal function and consult nephrology if renal function fails to improve. (4) Hypertension Current Visit: Yes Status: Chronic Assessment and plan: 1. Monitor BP and treat as necessary. 2. Currently, BP stable and on the low side. Hold BP meds and resume as necessary. Qualifiers: Hypertension type: essential hypertension Qualified Code(s): I10 - Essential (primary) hypertension (5) DVT prophylaxis Current Visit: Yes Status: Acute Assessment and plan: 1. Heparin gtt as above.
[2018-05-02] MEDS ORDERED: Insulin LISPRO 300 UNITS/3 ML VIAL SQ SCH (23:30)
[2018-05-03 06:06] LABS: Basophils % 0.4 %; Eosinophils # 0.2 K/mcL (0.0-0.6); Eosinophils % 1.6 %; Hematocrit 42.4 % (37.5-50.1); Hemoglobin 13.8 g/dL (12.9-16.9); Immature Granulocytes % 0.4 % (0-4); Lymphocytes # 2.2 K/mcL (0.6-4.6); Lymphocytes % 22.3 %; Mean Corpuscular HGB Conc 32.5 g/dL (31.6-35.5); Mean Corpuscular Hemoglobin 27.7 pg (28.0-33.3); Mean Corpuscular Volume 85.1 fL (83.0-100.0); Mean Platelet Volume 10.2 fL (9.4-12.4); Monocytes # 0.9 K/mcL (0.0-1.3); Monocytes % 9.7 %; Neutrophils # 6.4 K/mcL (1.6-8.9); Platelet Count 269 K/mcL (140-400); Red Blood Count 4.98 M/mcL (4.19-5.50); Segmented Neutrophils % 65.6 %
[2018-05-03 06:14] LABS: Prothrombin Time 11.8 Seconds (9.4-12.1)
[2018-05-03 06:17] LABS: Activated Partial Thrombo Time 29.4 Seconds (26.0-36.0)
[2018-05-03 06:19] LABS: BUN/Creatinine Ratio 15 (6-26); Blood Urea Nitrogen 14 mg/dL (6-20); Calcium 8.9 mg/dL (8.6-10.3); Carbon Dioxide 20 mEq/L (23-29); Chloride 107 mEq/L (98-107); Chol/HDL Ratio 4.3 (0-4.9); Glucose 161 mg/dL (70-105); Osmolality,Calculated 288 (280-300); Sodium 137 mEq/L (136-145); eGFR For African Americans > 60 (> 60); eGFR For Non-African Americans > 60 (> 60)
[2018-05-03] MEDS ORDERED: Insulin LISPRO 300 UNITS/3 ML VIAL SQ SCH ×2 (07:30→21:00)
[2018-05-03] MEDS ORDERED: Aspirin 81 MG TAB.CHEW PO SCH (09:00)
[2018-05-03] MEDS ORDERED: *HR* Ticagrelor 90 MG TABLET PO SCH (09:00)
[2018-05-03 09:15] LABS: Estimated Average Glucose 174 mg/dl; Hemoglobin A1C 7.7 %
--- NOTE | 2018-05-03 09:38 | Cardiology Progress Note ---
Date of Encounter: 05/03/18 Time of Encounter: 09:30 Assessment and Plan (1) NSTEMI (non-ST elevated myocardial infarction) Current Visit: Yes Status: Acute Per Cardiology: Peak troponin noted to be 15.21. Status post urgent left heart catheterization by Dr. Andrew 05/02/2018 and patient underwent PTCA with drug-eluting stent placement to proximal RCA 100% lesion and PTCA drug-eluting stent placement to mid RCA 70% lesion. Has remaining distal RCA 50% lesion, proximal circumflex 65 % lesion, mid LAD 80% lesion. Has fair quality collateral vessels from distal circumflex to right PDA. LV gram shows EF 50%, echo pending. Discussed and reviewed with Dr. Andrew, planned for staged outpatient PCI of LAD assuming clinical stable during the rest of hospital course. Has cardiac rehabilitation consult. On statin, will optimize to high-dose and check LFTs. On aspirin and Brilinta (assistance card provided). Telemetry reviewed with average heart rate the past 12 hours with no significant events noted. Systolic blood pressures 90s to 100s, will consider addition of beta megan if able. Will transfer to floor today for monitoring and observation. Postprocedure care and education provided. All questions answered. Will need work excuse for hospital stay and time off for convalescence and for staging PCI. (2) Acute kidney injury Current Visit: Yes Status: Acute Per Cardiology: Kidney function improved to baseline. We will discontinue IV fluids. Discussion w patient/family: The assessment and plan as outlined above was discussed with the patient and/or family members who expressed understanding and agreement. All questions were answered. Thank you for involving us in the care of your patient. Please call with any questions. Subjective Principal diagnosis: NSTEMI Interval history: Patient seen with at bedside. Currently chest pain-free. Denies any concerns or complaints. Denies any right groin discomfort or pain. Objective Vital Signs, Last 4 Hours Temp Pulse Resp BP Pulse Ox 05/03/18 09:00 81 16 105/67 96 05/03/18 08:00 98.4 F 75 15 114/81 97 05/03/18 07:00 80 14 91/64 94 05/03/18 06:00 63 17 100/62 94 General: Conversant, No Apparent Distress HEENT: Atraumatic, Normocephaly, Mucus Membranes Moist Neck: No JVD, Normal carotid pulses Cardiac: Reg Rate and Rhythm, Normal S1 and S2, No Murmur Lungs: Normal Breath Sounds, No Wheeze, Rales, Rhonchi Neuro: Alert and responsive, No focal deficits noted Abdomen: Soft, Non-Tender Skin: No rashes noted on visualized skin, Other (Right groin site dry and intact , no hematoma, no ecchymosis, no bleeding, right PT and DP pulses 2+ palpable) Musculoskeletal: No Chest Wall Tenderness Extremities: No Clubbing, No Cyanosis, No Edema, Normal Pulses Results 05/03/18 05:29 05/03/18 05:29 Lab Results Laboratory Tests 05/02/18 05/02/18 05/03/18 16:44 23:35 05:29 Creatinine 1.40 H 0.94 Est GFR (Non-Af Amer) 52 L > 60 Troponin I 0.12 H* 2.48 H* 05/03/18 05:29 Creatinine Est GFR (Non-Af Amer) Troponin I 15.21 H* ITS Impressions Abdomen/Pelvis CTA 05/02/18 16:55 IMPRESSION: 1. No evidence of aortic aneurysm or dissection. 2. No acute abnormality within the chest, abdomen, and pelvis. 3. Small fat-containing umbilical hernia with associated mild inflammatory change. 4. Enlarged prostate with evidence for chronic bladder outlet obstruction. D/ / Jose Manuel Durham MD / Jose Manuel Durham MD Interpreting Provider: Jose Manuel Durham MD Chest CTA 05/02/18 16:55 IMPRESSION: 1. No evidence of aortic aneurysm or dissection. 2. No acute abnormality within the chest, abdomen, and pelvis. 3. Small fat-containing umbilical hernia with associated mild inflammatory change. 4. Enlarged prostate with evidence for chronic bladder outlet obstruction. D/ / Jose Manuel Durham MD / Jose Manuel Durham MD Interpreting Provider: Jose Manuel Durham MD Active Medications Acetaminophen (Tylenol) 650 mg PO Q6HR PRN PRN Reason: Mild Pain/Fever Stop: 11/01/18 23:12 Aspirin (Aspirin) 81 mg PO DAILY [facility] Stop: 11/02/18 09:01 Last Admin: 05/03/18 08:03 Dose: 81 mg Atorvastatin Calcium (Lipitor) 20 mg PO HS ABRAHAM Stop: 11/02/18 21:01 Dextrose/Water (Dextrose 50% (Syg)) 25 ml IVP AD PRN PRN Reason: Hypoglycemia Stop: 11/01/18 23:18 Glucagon (Glucagen) 1 mg IM ONCE PRN PRN Reason: Hypoglycemia Stop: 11/01/18 23:18 Glucose (Gluctose) 15 gm PO ONCE PRN PRN Reason: Hypoglycemia Stop: 11/01/18 23:18 Glucose (Gluctose) 30 gm PO ONCE PRN PRN Reason: Hypoglycemia Stop: 11/01/18 23:18 Nitroglycerin (Nitroglycerin Premix 25 Mg/250 Ml) 25 mg in 250 mls @ 12 mls/hr IVC .[id number] ABRAHAM; 20 MCG/MIN PRN Reason: Protocol Stop: 11/01/18 17:31 Last Titration: 05/02/18 23:58 Dose: Infused Sodium Chloride (0.9 % Sodium Chloride) 1,000 mls @ 75 mls/hr IVC .[id number] [facility] Stop: 05/04/18 01:54 Last Admin: 05/02/18 23:53 Dose: 75 mls/hr Dextrose (Dextrose 5%) 1,000 mls @ 100 mls/hr IVC .Q10H PRN PRN Reason: HYPOGLYCEMIA Stop: 11/01/18 23:18 Insulin Human Lispro (Humalog) 0 units SQ TIDAC [facility] PRN Reason: Protocol Stop: 11/02/18 07:31 Last Admin: 05/03/18 08:04 Dose: 4 units Insulin Human Lispro (Humalog) 0 units SQ HS [facility] PRN Reason: Protocol Stop: 11/01/18 23:31 Last Admin: 05/02/18 23:34 Dose: Not Given Morphine Sulfate (Morphine Sulfate) 2 mg IVP Q3H PRN; Protocol PRN Reason: Chest Pain Stop: 11/01/18 23:17 Naloxone HCl (Narcan) 0.4 mg IVP Q2MIN PRN PRN Reason: SEE COMMENTS Stop: 11/01/18 23:12 Nitroglycerin (Nitroglycerin) 0.4 mg SL Q5MIN PRN PRN Reason: Chest Pain Stop: 11/01/18 16:48 Last Admin: 05/02/18 17:37 Dose: 0.4 mg Ticagrelor (Brilinta) 90 mg PO BID ABRAHAM Stop: 11/02/18 09:01 Last Admin: 05/03/18 08:03 Dose: 90 mg - Imaging and Cardiology Echo: pending Cardiac cath: report reviewed Consult Discharge Plan - Plan Referrals: Shakira Jackson, TOOL AND CUTTER GRINDER [Primary Care Provider] -
[2018-05-03] MEDS ORDERED: Nitroglycerin 0.4 MG TAB.SUBL SL PRN (10:27)
[2018-05-03] MEDS ORDERED: Acetaminophen 325 MG TABLET PO PRN (10:27)
[2018-05-03] MEDS ORDERED: Dextrose Gel 15 GM/37.5 ML TUBE PO PRN ×2 (10:27)
[2018-05-03] MEDS ORDERED: D5% in Water 1,000 ML IVC PRN (10:27)
[2018-05-03] MEDS ORDERED: *HR* Morphine 2 MG/ML SYRINGE IVP PRN (10:27)
[2018-05-03] MEDS ORDERED: Naloxone 0.4 MG/ML INJ IVP PRN (10:27)
[2018-05-03] MEDS ORDERED: *HR* Dextrose 50 % in Water (Syg) 50 ML SYRINGE IVP PRN (10:27)
[2018-05-03] MEDS: Insulin LISPRO 300 UNITS/3 ML VIAL SQ SCH ×2 (11:12→17:22)
[2018-05-03] MEDS ORDERED: Perflutren Lipid Microsphere 1.3 ML in 0.9 % Sodium Chloride 8.7 ML IVP ONE (12:19)
--- NOTE | 2018-05-03 15:38 | Internal Med Progress Note ---
Date of Encounter: 05/03/18 Time of Encounter: 09:15 - Assessment and plan (1) Unstable angina pectoris Current Visit: Yes Status: Acute Assessment and plan: Patient presented with typical chest pain with elevated troponin, concerning for unstable angina. Cardiology was consulted and he underwent urgent left heart catheterization yesterday, received 2 drug-eluting stents, in proximal and mid RCA. Continue telemetry monitoring, aspirin, Brilinta, statin. Serial troponins continue to trend higher, the recent one being 24.15. Cardiology follow-up noted, plan for outpatient staged PCI. To monitor and observe overnight, follow-up echocardiogram. (2) IDDM (insulin dependent diabetes mellitus) Current Visit: Yes Status: Chronic Assessment and plan: Blood sugars noted to be well controlled. Continue Accu-Chek blood glucose monitoring with sliding scale insulin. Diabetic diet. hemoglobin A1c noted to be 7.7%. (3) Acute kidney injury Current Visit: Yes Status: Resolved Assessment and plan: Improved with IV hydration. (4) Hypertension Current Visit: Yes Status: Chronic Assessment and plan: Blood pressure noted to be low normal. EDGAR inhibitor has been held due to low blood pressure and acute kidney injury at admission. Qualifiers: Hypertension type: essential hypertension Qualified Code(s): I10 - Essential (primary) hypertension (5) DVT prophylaxis Current Visit: Yes Status: Acute (6) Neurogenic bladder Current Visit: Yes Status: Chronic Assessment and plan: Discontinue indwelling Koo catheter, resume intermittent self-catheterization. - Time Spent With Patient Total time spent is greater than 50% in coordination of care (as documented) at patient's floor/unit and/or counseling patient: - Subjective Interval history: Reports feeling well; some fatigue; improved chest pain and shortness of breath ; no palpitations, dizziness, leg swelling; does intermittent self- catheterization at home; - Constitutional Vitals: Temp Pulse Resp BP Pulse Ox 98.7 F 66 20 107/87 94 05/03/18 12:00 05/03/18 12:00 05/03/18 12:00 05/03/18 12:00 05/03/18 12:00 General appearance: Present: cooperative, A&O X 3, answers questions appropriately - Respiratory Respiratory exam: Present: CTAB. Absent: accessory muscle use, rales, rhonchi, wheezes - Cardiovascular Cardiovascular exam: Present: RRR, +S1, +S2. Absent: diastolic murmur, gallop, rubs, systolic murmur - GI/Abdominal GI/Abdominal exam: Present: normal bowel sounds, soft, no peritoneal signs. Absent: distended, tenderness - Extremities Exam Extremities exam: Present: warm, radial pulses palpable and symmetrical. Absent : calf tenderness, cyanotic, pedal edema - Neurological Exam Neurological exam: Present: CN II-XII intact, oriented X3, no focal deficits. Absent: pronater drift, facial droop, speech deficit Internal Medicine: Result - Labs CBC & Chem 7: 05/03/18 05:29 05/03/18 05:29 Labs: Short CBC 05/03/18 Range/Units 05:29 WBC 9.7 (4.3-11.1) K/mcL Hgb 13.8 D (12.9-16.9) g/dL Hct 42.4 (37.5-50.1) % Plt Count 269 (140-400) K/mcL Neutrophils # 6.4 (1.6-8.9) K/mcL BMP 05/03/18 05:29 Sodium 137 Potassium 4.0 Chloride 107 Carbon Dioxide 20 L BUN 14 Creatinine 0.94 Glucose 161 H Calcium 8.9 Cardiac Enzymes 05/02/18 05/03/18 05/03/18 Range/Units 23:35 05:29 11:03 Troponin I 2.48 H* 15.21 H* 24.15 H* (< 0.04) ng/mL - ABG Interpretation ABG results: PT/INR, D-dimer PT 11.8 Seconds (9.4-12.1) 05/03/18 05:29 Consult Discharge Plan - Plan Referrals: Shakira Jackson, JOB SPECIFICATION WRITER [Primary Care Provider] -
[2018-05-03] MEDS: *HR* Ticagrelor 90 MG TABLET PO SCH (20:05)
[2018-05-04 04:49] LABS: Alanine Aminotransferase 32 Units/L (7-52); Aspartate Amino Transferase 71 Units/L (13-39)
[2018-05-04 06:48] VITALS: BP 111/72
[2018-05-04] MEDS: Insulin LISPRO 300 UNITS/3 ML VIAL SQ SCH ×2 (07:44→11:13)
[2018-05-04] MEDS: *HR* Ticagrelor 90 MG TABLET PO SCH (07:44)
[2018-05-04] MEDS ORDERED: Aspirin 81 MG TAB.CHEW PO SCH (09:00)
--- NOTE | 2018-05-04 10:22 | Cardiology Progress Note ---
Date of Encounter: 05/04/18 Time of Encounter: 08:45 Assessment and Plan (1) NSTEMI (non-ST elevated myocardial infarction) Current Visit: Yes Status: Acute Per Cardiology: Peak troponin noted to be 15.21. Status post urgent left heart catheterization by Dr. Andrew 05/02/2018 and patient underwent PTCA with drug-eluting stent placement to proximal RCA 100% lesion and PTCA drug-eluting stent placement to mid RCA 70% lesion. Has remaining distal RCA 50% lesion, proximal circumflex 65 % lesion, mid LAD 80% lesion. Has fair quality collateral vessels from distal circumflex to right PDA. LV gram shows EF 50%, echo pending. Discussed and reviewed with Dr. Andrew, planned for staged outpatient PCI of LAD. On statin, aspirin and Brilinta (assistance card provided). Noted to have mild AST elevation, suspect reflexive in setting of non-STEMI. Continue with statin therapy and will follow in outpatient setting. Telemetry reviewed: no significant events noted. Postprocedure care and education provided. All questions answered. Will need work excuse for hospital stay and time off for convalescence and for staging PCI. Recommend providing; nitroglycerin pills at discharge-- education provided on high utilize one to call 911. We will add low -dose Lopressor 12.5 mg by mouth twice a day, current systolic blood pressures 100s to 110s. Patient encouraged to keep her heart rate and blood pressure log and bring to follow-up appointment. (2) Acute kidney injury Current Visit: Yes Status: Resolved Per Cardiology: Kidney function improved to baseline. Discussion w patient/family: The assessment and plan as outlined above was discussed with the patient and/or family members who expressed understanding and agreement. All questions were answered. Thank you for involving us in the care of your patient. Please call with any questions. Subjective Principal diagnosis: NSTEMI Interval history: Up out of bed to chair today. Denies any chest pain. Denies any concerns per night. Objective Vital Signs, Last 4 Hours Temp Pulse Resp BP Pulse Ox 05/04/18 09:41 96 16 05/04/18 08:42 97.6 F 05/04/18 07:51 73 20 111/72 96 General: Conversant, No Apparent Distress HEENT: Atraumatic, Normocephaly, Mucus Membranes Moist Neck: No JVD, Normal carotid pulses Cardiac: Reg Rate and Rhythm, Normal S1 and S2, No Murmur Lungs: Normal Breath Sounds, No Wheeze, Rales, Rhonchi Neuro: Alert and responsive, No focal deficits noted Abdomen: Soft, Non-Tender Skin: No rashes noted on visualized skin Musculoskeletal: No Chest Wall Tenderness Extremities: No Clubbing, No Cyanosis, No Edema, Normal Pulses Results 05/03/18 05:29 05/03/18 05:29 Lab Results 05/03/18 05/04/18 05/04/18 11:03 04:00 04:00 AST 71 H ALT 32 Troponin I 24.15 H* 11.47 H* - Imaging and Cardiology Echo: report reviewed - EKG Interpretation EKG results cardiology: other (Telemetry reviewed with average heart rate 72 the past 24 hours, no significant events noted) Consult Discharge Plan - Plan Referrals: Shakira Jackson, OLIVER FILTER OPERATOR [Primary Care Provider] -
--- NOTE | 2018-05-04 11:47 | Discharge Summary ---
- NOTES TO OUTPATIENT PROVIDER Notes to Outpatient Provider: NSTEMI, s/p LHC and received 2 stents; plan for outpatient staged PCI; started on Brilinta, beta megan and statin; has to stay off work until Cardiology clearance Orders not resulted at time of discharge: Pending orders 05/02/18 21:51 ECG 12 lead ECG [ECG] Stat 05/03/18 06:00 ECG 12 lead ECG [ECG] AM 0600 05/03/18 07:00 ECG 12 lead ECG [ECG] Routine Date of Encounter: 05/04/18 Time of Encounter: 11:45 - Discharge Diagnosis (1) NSTEMI (non-ST elevated myocardial infarction) Priority: Primary Status: Acute (2) IDDM (insulin dependent diabetes mellitus) Priority: Secondary Status: Chronic (3) Acute kidney injury Priority: Primary Status: Resolved (4) Hypertension Priority: Secondary Status: Chronic Qualifiers: Hypertension type: essential hypertension Qualified Code(s): I10 - Essential (primary) hypertension (5) Neurogenic bladder Priority: Secondary Status: Chronic (6) CAD (coronary artery disease) Priority: Primary Status: Chronic Qualifiers: Coronary Disease-Associated Artery/Lesion type: [place] artery [place] vs. transplanted heart: [place] heart Associated angina: with unstable angina Qualified Code(s): I25.110 - Atherosclerotic heart disease of [place] coronary artery with unstable angina pectoris (7) Morbid obesity Priority: Secondary Status: Chronic Hospital course: Mr. Long is a 58 year old male with the above medical problems, who was admitted with chest pain, noted to have elevated troponins and EKG changes. He was started on ACS protocol with IV heparin drip, aspirin. Cardiology was consulted, patient was taken for urgent cardiac catheterization, received drug- eluting stents to proximal and mid RCA, plan for outpatient staged PCI of LAD. He is being started on low-dose beta megan, aspirin, Brilinta, statin and when necessary nitroglycerin. He is advised to stay away from work until cleared by cardiology. Case discussed with cardiology, he is otherwise medically stable for discharge. Patient also had an episode of acute kidney injury at admission, which has resolved with IV hydration. Discharge discussed with: patient, family, nurse, databases software consultant - Time Spent with Patient Total time spent providing and/or coordinating discharge services: Greater than 30 minutes (45 min) - Discharge Medications Prescriptions: Nitroglycerin 0.4 mg SL Q5MIN PRN #30 tab.subl PRN Reason: Chest Pain Aspirin 81 mg PO DAILY #30 tab.chew Atorvastatin [Lipitor] 80 mg PO HS #60 tablet Metoprolol [Lopressor] 12.5 mg PO BID #30 tablet Ticagrelor [Brilinta] 90 mg PO BID #60 tablet Home Medications: Furosemide [Lasix] 20 mg PO DAILY 04/01/17 [History] Insulin ASPART [NovoLOG] 14 - 24 unit SQ TIDWM 04/01/17 [History] Potassium Chloride [Klor-Con 10] 10 meq PO DAILY 04/01/17 [History] Ipratropium [place] 2 spr NS BID 01/07/18 [History] Insulin DETEMIR [Levemir Flextouch] 40 unit SQ HS 05/03/18 [History] SitaGLIPtin [Januvia] 100 mg PO DAILY 05/03/18 [History] Aspirin 81 mg PO DAILY #30 tab.chew 05/04/18 [Rx] Atorvastatin [Lipitor] 80 mg PO HS #60 tablet 05/04/18 [Rx] Metoprolol [Lopressor] 12.5 mg PO BID #30 tablet 05/04/18 [Rx] Nitroglycerin 0.4 mg SL Q5MIN PRN #30 tab.subl 05/04/18 [Rx] Ticagrelor [Brilinta] 90 mg PO BID #60 tablet 05/04/18 [Rx] Allergies/Adverse Reactions: 3 Allergy/AdvReac Type Severity Reaction Status Date / Time Amoxicillin Allergy Hives Verified 05/03/18 10:50 wheat Allergy Swelling Verified 01/07/18 08:52 of Lip/Tongue/Throat Date of admission: 05/02/18 20:26 Primary care physician: Shakira Jackson CNP Consults: 05/02/18 21:51 Consult to Cardiac Rehabilitation-Phase1 [CONS] Routine Comment: Reason for Consult: AMI Call Completed: Yes Consult to Nurse Navigator [CONS] Routine Comment: 05/02/18 23:15 Consult to Physician [CONS] Routine Consulting Provider: Neva Andrew Reason for Consult: LHC/NSTEMI Call Completed: Yes Discharging clinician: Catherine Swan Anticipated date of discharge: 05/04/18 - Constitutional Vitals: Temp Pulse Resp BP Pulse Ox 97.6 F 96 16 111/72 96 05/04/18 08:42 05/04/18 09:41 05/04/18 09:41 05/04/18 07:51 05/04/18 07:51 General appearance: Present: cooperative, A&O X 3, answers questions appropriately - Cardiovascular Cardiovascular exam: Present: RRR, +S1, +S2. Absent: diastolic murmur, gallop, rubs, systolic murmur - Patient Status Disposition: Home, Self-Care Condition: Fair Functional capacity at discharge: independent ambulation Overall status at discharge: patient is progressing back to baseline - Discharge Instructions Instructions: Metoprolol (By mouth), Nitroglycerin (By mouth), Atorvastatin ( By mouth), Ticagrelor (By mouth) Follow Up With: Shakira Jackson, DIRECTOR RECREATION [Primary Care Provider] - Additional Instructions: F/up with Cardiology in 1 week F/up with PCP in 1-2 weeks - Diet and Activity Activity: return to work once cleared by your PCP/specialist (only after Cardiology clearance), resume usual activities as tolerated (no exertion/ lifting heavy weights until Cardiology f/up;) Diet: diabetic diet, low fat, low cholesterol, low salt diet
--- NOTE | 2018-05-04 18:20 | Electrocardiograph Report ---
[address] [place], [place] [address] Test Date: 2018-05-02 Pat Name: Mj Long Department: 104 Room: [facility] Gender: M Color Separation Photographer: : 1960 Requested By: Neva Andrew Order Number: [id number] Reading MD: Keshav Pineda Measurements Intervals [place] Rate: 107 P: 43 ND: 136 QRS: 105 QRSD: 141 T: 34 QT: 359 QTc: 421 Interpretive Statements SINUS TACHYCARDIA MARKED RIGHT AXIS DEVIATION RIGHT BUNDLE BRANCH BLOCK Electronically Signed On 05-04-2018 18:18:53 EDT by Keshav Pineda
--- NOTE | 2018-05-04 18:21 | Electrocardiograph Report ---
[address] [address] Test Date: 2018-05-02 Pat Name: Mj Long Department: 104 Room: [facility] Gender: M Director Of Payroll: ARELIS : 1960 Requested By: Cande Swan Order Number: [id number] Reading MD: Keshav Pineda Measurements Intervals [place] Rate: 103 P: 48 NM: 162 QRS: 102 QRSD: 135 T: 32 QT: 370 QTc: 429 Interpretive Statements SINUS TACHYCARDIA MARKED RIGHT AXIS DEVIATION RIGHT BUNDLE BRANCH BLOCK Electronically Signed On 05-04-2018 18:19:38 EDT by Keshav Pineda
--- NOTE | 2018-05-04 18:24 | Electrocardiograph Report ---
[address] [place], [place] [address] Test Date: 2018-05-02 Pat Name: Mj Long Department: 104 Room: [facility] Gender: M Machine Helper: ARELIS : 1960 Requested By: German Everett Order Number: [id number] Reading MD: Keshav Pineda Measurements Intervals [place] Rate: 73 P: 47 DC: 160 QRS: 97 QRSD: 123 T: 32 QT: 399 QTc: 425 Interpretive Statements SINUS RHYTHM WITH MARKED SINUS ARRHYTHMIA RIGHT BUNDLE BRANCH BLOCK Electronically Signed On 05-04-2018 18:22:35 EDT by Keshav Pineda
--- NOTE | 2018-05-04 18:31 | Electrocardiograph Report ---
[address] [place], [place] [address] Test Date: 2018-05-02 Pat Name: Mj Long Department: 109 Room: [facility] Gender: M Strategic Planning Manager: : 1960 Requested By: Neva Andrew Order Number: [id number] Reading MD: Keshav Pineda Measurements Intervals [place] Rate: 74 P: 54 OR: 160 QRS: 94 QRSD: 127 T: 65 QT: 431 QTc: 458 Interpretive Statements SINUS RHYTHM WITH MARKED SINUS ARRHYTHMIA RIGHT BUNDLE BRANCH BLOCK Electronically Signed On 05-04-2018 18:29:51 EDT by Keshav Pineda
== END 2018-05-04 12:15 | disposition home or self-care (01) | DRG 247 ==
LOC: EMEROO 16:34 → SUATTDRO 20:26 → ICNU 20:26
PROVIDERS: ADMIT Internal Medicine Cardiovascular Disease; ATTEND Internal Medicine

== ENCOUNTER 2018-07-01 08:09 | Inpatient (IN) ==
[2018-07-01] MEDS ORDERED: Aspirin 81 MG TAB.CHEW PO ONE (08:17)
[2018-07-01] MEDS ORDERED: Nitroglycerin 0.4 MG TAB.SUBL SL ONE (08:33)
[2018-07-01] MEDS: Nitroglycerin 0.4 MG TAB.SUBL SL PRN ×2 (08:34→08:50)
--- NOTE | 2018-07-01 08:34 | Emergency Department Note ---
Disposition Clinical Impression: Chest pain, rule out acute myocardial infarction Dyspnea Qualifiers: Dyspnea type: unspecified Qualified Code(s): R06.00 - Dyspnea, unspecified Disposition: Admitted As Inpatient Condition: Fair Time of Disposition: 10:27 Chest Pain HPI - General Chief Complaint: ED Shortness of Breath/Dyspnea Stated Complaint: CP/DEX Time Seen by Provider: 07/01/18 08:17 Source: patient Limitations: no limitations Vital Signs Reviewed: Yes Nursing Notes Reviewed: Yes - History of Present Illness HPI Narrative: Nontoxic-appearing 58-year-old male with a significant history of coronary artery disease and 3 cardiac stents who is on aspirin and Plavix presents for evaluation of substernal chest pain. He states that this pain began this past Friday after undergoing a session of cardio rehabilitation. Upon waking this morning, the pain was noted to have started to radiate into the left neck and the left upper extremity. He describes this chest pain as a pressure and rated a 4 out of 10 on a 10 point scale. He states that he has taken sublingual nitroglycerin at home every day since this past Friday at the time of symptom onset. He complains of worsening shortness of breath as well but denies any productive cough or hemoptysis. There is an exertional component to both the chest pain and shortness of breath. He denies any fever or chills. He denies any vomiting but does state he has been slightly nauseated on several occasions. He denies any calf pain or swelling of the lower extremities. 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 Andrew. Pt complaint: chest pain, other (Difficulty breathing) Onset (ago): week(s) (1) Duration: gradually worsening Pain Location: substernal Severity: moderate Severity scale (1-10): 4 Quality: other (pressure) Pain Radiation: LUE, neck Improves with: nitroglycerin Worsens with: exertion, inspiration Associated symptoms: Reports: nausea, dyspnea. Denies: vomiting, diaphoresis, syncope, palpitations, fever, cough, leg swelling Treatments prior to arrival chest pain: none - Related Data Home Medications Medication Instructions Recorded Confirmed Insulin ASPART [NovoLOG] 14 - 24 unit SQ TIDWM 04/01/17 07/01/18 Ipratropium [place] 2 spr NS BID 01/07/18 07/01/18 Insulin DETEMIR [Levemir Flextouch] 40 unit SQ HS 05/03/18 07/01/18 SitaGLIPtin [Januvia] 100 mg PO DAILY 05/03/18 07/01/18 Clopidogrel [Plavix] 75 mg PO DAILY 07/01/18 07/01/18 Fluticasone Propionate Nasal 1 spr NS BID 07/01/18 07/01/18 [Flonase] Previous Rx's Medication Instructions Recorded Nitroglycerin 0.4 mg SL Q5MIN PRN #30 tab.subl 05/04/18 Aspirin 81 mg PO DAILY #30 tab.chew 05/19/18 Atorvastatin Calcium [Lipitor] 80 mg PO HS #30 tablet 05/19/18 Furosemide [Lasix] 20 mg PO DAILY #30 tablet 05/19/18 Metoprolol [Lopressor] 12.5 mg PO BID #30 tablet 05/19/18 Potassium Chloride [Klor-Con 10] 10 meq PO DAILY #30 tablet.er 05/19/18 Allergies Allergy/AdvReac Type Severity Reaction Status Date / Time Amoxicillin Allergy Hives Verified 05/03/18 10:50 clavulanic acid Allergy Hives Verified 05/18/18 07:42 [From Augmentin] wheat Allergy Swelling Verified 01/07/18 08:52 of Lip/Tongue/Throat All systems ED: reviewed and negative except as stated. Review of Systems: As Per HPI Constitutional: Denies: fever, chills, weakness, weight change Eyes: Denies: eye pain, eye discharge, vision change ENT ED: Denies: ear pain, throat pain, dental pain, hearing loss, epistaxis, congestion, dysphagia Cardiovascular: Reports: as per HPI, chest pain, dyspnea on exertion. Denies: palpitations, edema, syncope, paroxysmal nocturnal dyspnea Respiratory: Reports: dyspnea. Denies: cough, wheezes, hemoptysis, stridor Gastrointestinal: Denies: abdominal pain, nausea, vomiting, diarrhea, constipation, hematemesis, melena, hematochezia Genitourinary: Denies: urgency, dysuria, frequency, hematuria Musculoskeletal: Denies: back pain, neck pain, arthralgia, myalgia Integumentary: Denies: rash, abrasion, lesions Neurological: Denies: headache, weakness, numbness, paresthesias, confusion, abnormal gait, vertigo Psychiatric: Denies: anxiety, depression, suicidal thoughts, homicidal thoughts , auditory hallucinations, visual hallucinations Endocrine: Denies: fatigue Hematological/Lymphatic: Denies: easy bleeding, easy bruising Allergic/Immunologic: Denies: facial swelling, urticaria Chest Pain PMH - Past Medical History Medical history: Reports: arthritis, diabetes, GERD, hyperlipidemia, hypertension, myocardial infarction Surgical history: Reports: cholecystectomy, sinus surgery Psychiatric history: Reports: no psych history - Social History Smoking Status: Former smoker Alcohol use: Reports: none Drug use: Reports: none Physical Exam - General Limitations: no limitations General appearance: alert, in no apparent distress - Head Head exam: atraumatic, normocephalic, normal inspection - Eye Eye exam: Present: normal appearance, PERRL, EOMI. Absent: nystagmus - ENT ENT exam: mucous membranes moist - Neck Neck exam: Present: normal inspection, full ROM, trachea midline - Chest Chest inspection: Present: normal inspection, symmetric chest wall rise - Respiratory Respiratory exam: Present: normal lung sounds bilaterally. Absent: respiratory distress, wheezes, stridor, accessory muscle use, prolonged expiratory phase - Cardiovascular Cardiovascular exam: Present: regular rate, normal rhythm, normal heart sounds - Abdominal Exam Abdominal exam: Present: soft, Non-Tender, normal bowel sounds - Extremities Exam Extremities exam: Present: full ROM, pedal edema (One plus, pretibial edema noted bilaterally) - Neurological Exam Neurological exam: Present: alert, oriented X3 - Psychiatric Psychiatric exam: Present: normal affect, normal mood - Skin Skin exam: Present: warm, dry, intact, normal color. Absent: rash, diaphoresis , pallor Course Course Narrative: The patient has a neurogenic bladder which requires self-catheterization at home. He states that due to the wires and records from the site monitor as well as blood pressure cuff, that it is nearly impossible for him to manage his straight catheterizations while here in the hospital. For this reason, a Koo catheter has been ordered - Reevaluation(s) Reevaluation #1: The patient stated no improvement in symptoms after the administration of nitroglycerin. 2 tablets of sublingual nitroglycerin which were administered. The patient stated that he actually felt as if his pressure worsened after the nitroglycerin. 2 DuoNeb treatments were ordered, with moderate and immediate improvement in symptoms upon initiation of DuoNeb treatments. Time: 09:42 - Consultations Consultation #1: I spoke with Dr. Schulz, felting machine operator helper application packager. Dr. Schulz recommends admission to the hospital service for cardiac consultation for a probable cath either today or tomorrow, as well as the initiation of a heparin drip per [facility] protocol. Time: 09:50 Consultation #2: I spoke with , hospitalist on-call. He is except the patient to the hospitalist services for further management and care. Time: 10:26 Vital Signs Temperature 97.9 F 07/01/18 08:12 Pulse Rate 70 07/01/18 08:12 Respiratory Rate 18 07/01/18 08:12 Blood Pressure 163/92 07/01/18 08:12 O2 Sat by Pulse Oximetry 98 07/01/18 08:12 Temperature 97.9 F 07/01/18 08:19 Pulse Rate 60 07/01/18 09:00 Respiratory Rate 21 07/01/18 09:34 Blood Pressure 127/80 07/01/18 09:00 O2 Sat by Pulse Oximetry 100 07/01/18 09:34 Oxygen Delivery Oxygen Delivery Room Air Chest Pain - Medical Records Medical records reviewed: Yes I reviewed the patient's medical records. - Lab Data Lab results reviewed: Yes I reviewed the patient's lab results. Lab results narrative: Lab Results 07/01/18 07/01/18 07/01/18 Range/Units 08:20 08:20 08:20 WBC 10.3 (4.3-11.1) K/mcL RBC 5.41 (4.19-5.50) M/mcL Hgb 15.1 (12.9-16.9) g/dL Hct 46.6 (37.5-50.1) % MCV 86.1 (83.0-100.0) fL MCH 27.9 L (28.0-33.3) pg MCHC 32.4 (31.6-35.5) g/dL RDW 14.6 H (11.5-14.5) % Plt Count 275 (140-400) K/mcL MPV 10.0 (9.4-12.4) fL Immature Gran % 0.3 (0-4) % Seg Neutrophils % 60.7 % Lymphocytes % 26.9 % Monocytes % 9.2 % Eosinophils % 2.5 % Basophils % 0.4 % Neutrophils # 6.2 (1.6-8.9) K/mcL Lymphocytes # 2.8 (0.6-4.6) K/mcL Monocytes # 1.0 (0.0-1.3) K/mcL Eosinophils # 0.3 (0.0-0.6) K/mcL Basophils # 0.0 (0.0-0.2) K/mcL PT 11.5 (9.4-12.1) Seconds INR 1.0 APTT 29.7 (26.0-36.0) Seconds D-Dimer 457 (0-500) ng/mLFEU Sodium (136-145) mEq/L Potassium (3.5-5.1) mEq/L Chloride (98-107) mEq/L Carbon Dioxide (23-29) mEq/L BUN (6-20) mg/dL Creatinine (0.70-1.30) mg/dL Est GFR ( Amer) (> 60) Est GFR (Non-Af Amer) (> 60) BUN/Creatinine Ratio (6-26) Glucose (70-105) mg/dL Calculated Osmolality (280-300) Calcium (8.6-10.3) mg/dL Troponin I (< 0.04) ng/mL B-Natriuretic Peptide 61 (Less than 100) pg/mL 07/01/18 Range/Units 08:20 WBC (4.3-11.1) K/mcL RBC (4.19-5.50) M/mcL Hgb (12.9-16.9) g/dL Hct (37.5-50.1) % MCV (83.0-100.0) fL MCH (28.0-33.3) pg MCHC (31.6-35.5) g/dL RDW (11.5-14.5) % Plt Count (140-400) K/mcL MPV (9.4-12.4) fL Immature Gran % (0-4) % Seg Neutrophils % % Lymphocytes % % Monocytes % % Eosinophils % % Basophils % % Neutrophils # (1.6-8.9) K/mcL Lymphocytes # (0.6-4.6) K/mcL Monocytes # (0.0-1.3) K/mcL Eosinophils # (0.0-0.6) K/mcL Basophils # (0.0-0.2) K/mcL PT (9.4-12.1) Seconds INR APTT (26.0-36.0) Seconds D-Dimer (0-500) ng/mLFEU Sodium 138 (136-145) mEq/L Potassium 3.8 (3.5-5.1) mEq/L Chloride 103 (98-107) mEq/L Carbon Dioxide 28 (23-29) mEq/L BUN 18 (6-20) mg/dL Creatinine 1.09 (0.70-1.30) mg/dL Est GFR ( Amer) > 60 (> 60) Est GFR (Non-Af Amer) > 60 (> 60) BUN/Creatinine Ratio 17 (6-26) Glucose 214 H (70-105) mg/dL Calculated Osmolality 294 (280-300) Calcium 9.2 (8.6-10.3) mg/dL Troponin I < 0.03 (< 0.04) ng/mL B-Natriuretic Peptide (Less than 100) pg/mL Result diagrams: 07/01/18 10:11 07/01/18 08:20 Lab Results 07/01/18 07/01/18 07/01/18 Range/Units 08:20 08:20 08:20 WBC 10.3 (4.3-11.1) K/mcL RBC 5.41 (4.19-5.50) M/mcL Hgb 15.1 (12.9-16.9) g/dL Hct 46.6 (37.5-50.1) % MCV 86.1 (83.0-100.0) fL MCH 27.9 L (28.0-33.3) pg MCHC 32.4 (31.6-35.5) g/dL RDW 14.6 H (11.5-14.5) % Plt Count 275 (140-400) K/mcL MPV 10.0 (9.4-12.4) fL Immature Gran % 0.3 (0-4) % Seg Neutrophils % 60.7 % Lymphocytes % 26.9 % Monocytes % 9.2 % Eosinophils % 2.5 % Basophils % 0.4 % Neutrophils # 6.2 (1.6-8.9) K/mcL Lymphocytes # 2.8 (0.6-4.6) K/mcL Monocytes # 1.0 (0.0-1.3) K/mcL Eosinophils # 0.3 (0.0-0.6) K/mcL Basophils # 0.0 (0.0-0.2) K/mcL PT 11.5 (9.4-12.1) Seconds INR 1.0 APTT 29.7 (26.0-36.0) Seconds D-Dimer 457 (0-500) ng/mLFEU Heparin Anti-Xa, Unfract (0.30-0.70) IU/mL Sodium (136-145) mEq/L Potassium (3.5-5.1) mEq/L Chloride (98-107) mEq/L Carbon Dioxide (23-29) mEq/L BUN (6-20) mg/dL Creatinine (0.70-1.30) mg/dL Est GFR ( Amer) (> 60) Est GFR (Non-Af Amer) (> 60) BUN/Creatinine Ratio (6-26) Glucose (70-105) mg/dL Calculated Osmolality (280-300) Calcium (8.6-10.3) mg/dL Troponin I (< 0.04) ng/mL B-Natriuretic Peptide 61 (Less than 100) pg/mL 07/01/18 07/01/18 07/01/18 Range/Units 08:20 10:11 10:11 WBC 10.6 (4.3-11.1) K/mcL RBC 5.63 H (4.19-5.50) M/mcL Hgb 16.1 (12.9-16.9) g/dL Hct 48.4 (37.5-50.1) % MCV 86.0 (83.0-100.0) fL MCH 28.6 (28.0-33.3) pg MCHC 33.3 (31.6-35.5) g/dL RDW 14.5 (11.5-14.5) % Plt Count 254 (140-400) K/mcL MPV 10.4 (9.4-12.4) fL Immature Gran % (0-4) % Seg Neutrophils % % Lymphocytes % % Monocytes % % Eosinophils % % Basophils % % Neutrophils # (1.6-8.9) K/mcL Lymphocytes # (0.6-4.6) K/mcL Monocytes # (0.0-1.3) K/mcL Eosinophils # (0.0-0.6) K/mcL Basophils # (0.0-0.2) K/mcL PT 11.1 (9.4-12.1) Seconds INR 1.0 APTT (26.0-36.0) Seconds D-Dimer (0-500) ng/mLFEU Heparin Anti-Xa, Unfract 0.04 L (0.30-0.70) IU/mL Sodium 138 (136-145) mEq/L Potassium 3.8 (3.5-5.1) mEq/L Chloride 103 (98-107) mEq/L Carbon Dioxide 28 (23-29) mEq/L BUN 18 (6-20) mg/dL Creatinine 1.09 (0.70-1.30) mg/dL Est GFR ( Amer) > 60 (> 60) Est GFR (Non-Af Amer) > 60 (> 60) BUN/Creatinine Ratio 17 (6-26) Glucose 214 H (70-105) mg/dL Calculated Osmolality 294 (280-300) Calcium 9.2 (8.6-10.3) mg/dL Troponin I < 0.03 (< 0.04) ng/mL B-Natriuretic Peptide (Less than 100) pg/mL - Radiology Data Radiology results reviewed: Yes I reviewed the patient's radiology results. Chest X-Ray 07/01/18 08:18 IMPRESSION: 1. Cardiomegaly with mild vascular congestion. D/ / West Todd MD / West Todd MD Interpreting Provider: West Todd MD - EKG Data EKG attestation: Yes I reviewed and interpreted this EKG. EKG results narrative: EKG reviewed by Dr. Baron as well. EKG shows a sinus rhythm with right bundle branch block at a rate of 66 bpm. [place] interval 159, QRS duration 121, QT/QTc interval 421/442. T-wave depression noted in lead II as well as inverted T waves in lead III. these are new findings when compared to his most recent EKG dated from 05/02/18.
[2018-07-01 08:43] LABS: Basophils % 0.4 %; Eosinophils # 0.3 K/mcL (0.0-0.6); Eosinophils % 2.5 %; Hematocrit 46.6 % (37.5-50.1); Hemoglobin 15.1 g/dL (12.9-16.9); Immature Granulocytes % 0.3 % (0-4); Lymphocytes # 2.8 K/mcL (0.6-4.6); Lymphocytes % 26.9 %; Mean Corpuscular HGB Conc 32.4 g/dL (31.6-35.5); Mean Corpuscular Hemoglobin 27.9 pg (28.0-33.3); Mean Corpuscular Volume 86.1 fL (83.0-100.0); Monocytes % 9.2 %; Neutrophils # 6.2 K/mcL (1.6-8.9); Platelet Count 275 K/mcL (140-400); Red Blood Count 5.41 M/mcL (4.19-5.50); Red Cell Distribution Width 14.6 % (11.5-14.5); Segmented Neutrophils % 60.7 %
[2018-07-01 08:49] LABS: Prothrombin Time 11.5 Seconds (9.4-12.1)
[2018-07-01 08:51] LABS: Activated Partial Thrombo Time 29.7 Seconds (26.0-36.0)
[2018-07-01 09:03] LABS: Troponin I < 0.03 ng/mL (< 0.04)
[2018-07-01 09:04] LABS: BUN/Creatinine Ratio 17 (6-26); Blood Urea Nitrogen 18 mg/dL (6-20); Calcium 9.2 mg/dL (8.6-10.3); Carbon Dioxide 28 mEq/L (23-29); Chloride 103 mEq/L (98-107); Glucose 214 mg/dL (70-105); Osmolality,Calculated 294 (280-300); Potassium 3.8 mEq/L (3.5-5.1); Sodium 138 mEq/L (136-145); eGFR For Non-African Americans > 60 (> 60)
[2018-07-01] MEDS ORDERED: Ipratropium/Albuterol Neb 3 ML IH ONE ×2 (09:13→09:15)
[2018-07-01] MEDS ORDERED: Furosemide 40 MG/4 ML VIAL IVP ONE (09:42)
[2018-07-01] MEDS ORDERED: *HR* Heparin 5,000 UNIT/ML VIAL IVP ONE (09:52)
[2018-07-01] MEDS ORDERED: *HR* Heparin 5,000 UNIT/ML VIAL IVP PRN ×2 (09:52)
[2018-07-01] MEDS ORDERED: Heparin 25,000 UNIT/500 ML D5W 25,000 UNIT/500 ML BAG IVC SCH (10:00)
--- NOTE | 2018-07-01 10:17 | Electrocardiograph Report ---
[facility] Test Date: 2018-07-01 Pat Name: Mj Long Department: [id number] Room: Gender: M Grants Director: : 1960 Requested By: Fidencio Schultz Order Number: [id number] Reading MD: Musa Bradford Measurements Intervals [place] Rate: 66 P: 61 WI: 159 QRS: 63 QRSD: 121 T: -11 QT: 421 QTc: 442 Interpretive Statements Sinus rhythm Right bundle branch block Electronically Signed On 07-01-2018 10:15:35 EDT by Musa Bradford
[2018-07-01 10:35] LABS: Hematocrit 48.4 % (37.5-50.1); Hemoglobin 16.1 g/dL (12.9-16.9); Mean Corpuscular HGB Conc 33.3 g/dL (31.6-35.5); Mean Corpuscular Hemoglobin 28.6 pg (28.0-33.3); Mean Platelet Volume 10.4 fL (9.4-12.4); Platelet Count 254 K/mcL (140-400); Red Blood Count 5.63 M/mcL (4.19-5.50); Red Cell Distribution Width 14.5 % (11.5-14.5)
[2018-07-01 10:42] LABS: Heparin anti-factor XA UFH 0.04 IU/mL (0.30-0.70)
[2018-07-01 10:43] LABS: Prothrombin Time 11.1 Seconds (9.4-12.1)
[2018-07-01] MEDS ORDERED: Heparin 25,000 UNIT/500 ML D5W 25,000 UNIT/500 ML BAG IVC ONE (10:53)
--- NOTE | 2018-07-01 10:55 | Emergency Department Note ---
Disposition Clinical Impression: Chest pain, rule out acute myocardial infarction Dyspnea Qualifiers: Dyspnea type: unspecified Qualified Code(s): R06.00 - Dyspnea, unspecified Disposition: Admitted As Inpatient Condition: Fair Referrals: Shakira Jackson CNP [Primary Care Provider] - Forms: ED Satisfaction Letter General Adult HPI - General Chief complaint: ED Shortness of Breath/Dyspnea Stated complaint: CP/DEX Time Seen by Provider: 07/01/18 08:17 Source: patient Limitations: no limitations - History of Present Illness Pain Scale: 4 - Related Data Home Medications Medication Instructions Recorded Confirmed Insulin ASPART [NovoLOG] 14 - 24 unit SQ TIDWM 04/01/17 07/01/18 Ipratropium [place] 2 spr NS BID 01/07/18 07/01/18 Insulin DETEMIR [Levemir Flextouch] 40 unit SQ HS 05/03/18 07/01/18 SitaGLIPtin [Januvia] 100 mg PO DAILY 05/03/18 07/01/18 Clopidogrel [Plavix] 75 mg PO DAILY 07/01/18 07/01/18 Fluticasone Propionate Nasal 1 spr NS BID 07/01/18 07/01/18 [Flonase] Previous Rx's Medication Instructions Recorded Nitroglycerin 0.4 mg SL Q5MIN PRN #30 tab.subl 05/04/18 Aspirin 81 mg PO DAILY #30 tab.chew 05/19/18 Atorvastatin Calcium [Lipitor] 80 mg PO HS #30 tablet 05/19/18 Furosemide [Lasix] 20 mg PO DAILY #30 tablet 05/19/18 Metoprolol [Lopressor] 12.5 mg PO BID #30 tablet 05/19/18 Potassium Chloride [Klor-Con 10] 10 meq PO DAILY #30 tablet.er 05/19/18 Allergies Allergy/AdvReac Type Severity Reaction Status Date / Time Amoxicillin Allergy Hives Verified 05/03/18 10:50 clavulanic acid Allergy Hives Verified 05/18/18 07:42 [From Augmentin] wheat Allergy Swelling Verified 01/07/18 08:52 of Lip/Tongue/Throat Constitutional: Denies: fever, chills, weakness, weight change Eyes: Denies: eye pain, eye discharge, vision change ENT ED: Denies: ear pain, throat pain, dental pain, hearing loss, epistaxis, congestion, dysphagia Cardiovascular: Reports: as per HPI, chest pain, dyspnea on exertion. Denies: palpitations, edema, syncope, paroxysmal nocturnal dyspnea Respiratory: Reports: dyspnea. Denies: cough, wheezes, hemoptysis, stridor Gastrointestinal: Denies: abdominal pain, nausea, vomiting, diarrhea, constipation, hematemesis, melena, hematochezia Genitourinary: Denies: urgency, dysuria, frequency, hematuria Musculoskeletal: Denies: back pain, neck pain, arthralgia, myalgia Integumentary: Denies: rash, abrasion, lesions Neurological: Denies: headache, weakness, numbness, paresthesias, confusion, abnormal gait, vertigo Psychiatric: Denies: anxiety, depression, suicidal thoughts, homicidal thoughts , auditory hallucinations, visual hallucinations Endocrine: Denies: fatigue Hematological/Lymphatic: Denies: easy bleeding, easy bruising Allergic/Immunologic: Denies: facial swelling, urticaria Past Medical History - Past Medical History Medical history: Reports: arthritis, diabetes, GERD, hyperlipidemia, hypertension, myocardial infarction Surgical history: Reports: cholecystectomy, sinus surgery Psychiatric history: Reports: no psych history - Social History Smoking Status: Former smoker Smokeless Tobacco Status: No Alcohol use: Reports: none Drug use: Reports: none Physical Exam - General Limitations: no limitations General appearance: alert, in no apparent distress Course Vital Signs Temperature 97.9 F 07/01/18 08:12 Pulse Rate 70 07/01/18 08:12 Respiratory Rate 18 07/01/18 08:12 Blood Pressure 163/92 07/01/18 08:12 O2 Sat by Pulse Oximetry 98 07/01/18 08:12 Temperature 97.9 F 07/01/18 08:19 Pulse Rate 60 07/01/18 09:00 Respiratory Rate 21 07/01/18 09:34 Blood Pressure 127/80 07/01/18 09:00 O2 Sat by Pulse Oximetry 100 07/01/18 09:34 Oxygen Delivery Oxygen Delivery Room Air Medical Decision Making - Lab Data Result diagrams: 07/01/18 10:11 07/01/18 08:20 Lab Results 07/01/18 07/01/18 07/01/18 Range/Units 08:20 08:20 08:20 WBC 10.3 (4.3-11.1) K/mcL RBC 5.41 (4.19-5.50) M/mcL Hgb 15.1 (12.9-16.9) g/dL Hct 46.6 (37.5-50.1) % MCV 86.1 (83.0-100.0) fL MCH 27.9 L (28.0-33.3) pg MCHC 32.4 (31.6-35.5) g/dL RDW 14.6 H (11.5-14.5) % Plt Count 275 (140-400) K/mcL MPV 10.0 (9.4-12.4) fL Immature Gran % 0.3 (0-4) % Seg Neutrophils % 60.7 % Lymphocytes % 26.9 % Monocytes % 9.2 % Eosinophils % 2.5 % Basophils % 0.4 % Neutrophils # 6.2 (1.6-8.9) K/mcL Lymphocytes # 2.8 (0.6-4.6) K/mcL Monocytes # 1.0 (0.0-1.3) K/mcL Eosinophils # 0.3 (0.0-0.6) K/mcL Basophils # 0.0 (0.0-0.2) K/mcL PT 11.5 (9.4-12.1) Seconds INR 1.0 APTT 29.7 (26.0-36.0) Seconds D-Dimer 457 (0-500) ng/mLFEU Heparin Anti-Xa, Unfract (0.30-0.70) IU/mL Sodium (136-145) mEq/L Potassium (3.5-5.1) mEq/L Chloride (98-107) mEq/L Carbon Dioxide (23-29) mEq/L BUN (6-20) mg/dL Creatinine (0.70-1.30) mg/dL Est GFR ( Amer) (> 60) Est GFR (Non-Af Amer) (> 60) BUN/Creatinine Ratio (6-26) Glucose (70-105) mg/dL Calculated Osmolality (280-300) Calcium (8.6-10.3) mg/dL Troponin I (< 0.04) ng/mL B-Natriuretic Peptide 61 (Less than 100) pg/mL 07/01/18 07/01/18 07/01/18 Range/Units 08:20 10:11 10:11 WBC 10.6 (4.3-11.1) K/mcL RBC 5.63 H (4.19-5.50) M/mcL Hgb 16.1 (12.9-16.9) g/dL Hct 48.4 (37.5-50.1) % MCV 86.0 (83.0-100.0) fL MCH 28.6 (28.0-33.3) pg MCHC 33.3 (31.6-35.5) g/dL RDW 14.5 (11.5-14.5) % Plt Count 254 (140-400) K/mcL MPV 10.4 (9.4-12.4) fL Immature Gran % (0-4) % Seg Neutrophils % % Lymphocytes % % Monocytes % % Eosinophils % % Basophils % % Neutrophils # (1.6-8.9) K/mcL Lymphocytes # (0.6-4.6) K/mcL Monocytes # (0.0-1.3) K/mcL Eosinophils # (0.0-0.6) K/mcL Basophils # (0.0-0.2) K/mcL PT 11.1 (9.4-12.1) Seconds INR 1.0 APTT (26.0-36.0) Seconds D-Dimer (0-500) ng/mLFEU Heparin Anti-Xa, Unfract 0.04 L (0.30-0.70) IU/mL Sodium 138 (136-145) mEq/L Potassium 3.8 (3.5-5.1) mEq/L Chloride 103 (98-107) mEq/L Carbon Dioxide 28 (23-29) mEq/L BUN 18 (6-20) mg/dL Creatinine 1.09 (0.70-1.30) mg/dL Est GFR ( Amer) > 60 (> 60) Est GFR (Non-Af Amer) > 60 (> 60) BUN/Creatinine Ratio 17 (6-26) Glucose 214 H (70-105) mg/dL Calculated Osmolality 294 (280-300) Calcium 9.2 (8.6-10.3) mg/dL Troponin I < 0.03 (< 0.04) ng/mL B-Natriuretic Peptide (Less than 100) pg/mL Critical Care Time Critical Care Time: No Attestation Statement - Attestation Attestation: I have personally performed a face to face evaluation on this patient. I have reviewed and agree with the care plan. History and Exam by me shows: 58-year-old male presented to the ER for chest pain and left neck pain. Onset 1 week ago after cardiac rehabilitation. Patient has significant history of coronary disease. Recent heart catheter. Consult with cardiology was done. They wanted him started on heparin and admission for possible cardiac catheterization today or tomorrow. no critical care time
--- NOTE | 2018-07-01 11:18 | Cardiology Consult Note ---
Date of Encounter: 07/01/18 Time of Encounter: 11:05 Assessment and Plan (1) Unstable angina pectoris Current Visit: No Status: Acute clinical picture consistent with UA, KIEL 3-4. LAD, RCA stent in 3 months. normal Cr, no bleeding or surgery planned P: LHC, pt agrees NPO heparin drip pt had ASA 324 and took plavix this am (2) CAD (coronary artery disease) Current Visit: No Status: Chronic Know LAD and RCA NOAH 04/2018. Now UA. see UA section. [facility] c/w home BB and lipitor Qualifiers: Coronary Disease-Associated Artery/Lesion type: [place] artery [place] vs. transplanted heart: [place] heart Associated angina: with unstable angina Qualified Code(s): I25.110 - Atherosclerotic heart disease of [place] coronary artery with unstable angina pectoris (3) IDDM (insulin dependent diabetes mellitus) Current Visit: No Status: Chronic need ACEI/ARB (4) Hypertension Current Visit: No Status: Chronic BP fluctuating. will need ACEI Qualifiers: Hypertension type: essential hypertension Qualified Code(s): I10 - Essential (primary) hypertension Discussion w patient/family: The assessment and plan as outlined above was discussed with the patient and/or family members who expressed understanding and agreement. All questions were answered. Thank you for involving us in the care of your patient. Please call with any questions. History of Present Illness Consult date: 07/01/18 Requesting physician: Fidencio Schultz Consult reason: chest pain Chief complaint: chest pain History of present illness: Mr. Long is a 58 year old male ho CAD NOAH x2 to RC 05/02/18 NOAH to mid LAD , DM, HTN, ex-smoker. C/o 1 wk of stuttering upper back pain worse on exertion during rehab relief on NTG, daily. Acute onset of chest pressure/squeezing 5/10 this am radiation to neck, worse on exertion, relief partially by NTG now 2-3/10, with mild dyspnea, feels similar to NM in the past Trop neg x1, BNP 63, compliant with meds. No syncope, palpitations Cr 1.1, no surgery planned ECG SR, old RBBB, TWI inf. pt had ASA 324 and took plavix this am occ left leg claudication. 05/18/18 [facility] indications: Non-Stemi Stable Known CAD Impressions: There is severe one vessel coronary artery disease. Patient had successful PTCA/Drug-Eluting Stent placement in the mid LAD. Coronary Dominance: right Lesion Findings/Interventions * Left Main Coronary Artery The LMCA is angiographically free of disease. * Left Anterior Descending There is a 18 mm long, 70% stenosis in the Mid LAD. The lesion has a KIEL flow of 3. An intervention was performed on the Mid LAD with a final stenosis of 0%. There were no lesion complications. The final KIEL flow was 3. * Circumflex The Circumflex is angiographically free of disease. The 1st Marginal is angiographically free of disease. 05/03/18 Impressions: LVEF 55%. Normal LV chamber size, wall thickness and overall function. Mild segmental left ventricular systolic dysfunction. Mild left ventricular diastolic dysfunction. Normal right ventricular structure and function. No evidence of pulmonary hypertension. No significant valvular dysfunction. Past Med Surg Social Fam HX - Past Medical History Medical history: arthritis, diabetes, GERD, hyperlipidemia, hypertension, myocardial infarction Additional medical history: see attached records, BPH, shingles, bilateral carpal tunnel, hydronephrosis, neurogenic bladder (self catheterizes), deviated nasal septum, hypertrophy Psychiatric history: no psych history - Past Surgical History Surgical History: cholecystectomy, sinus surgery Additional surgical history: LASIK. R. CARPAL TUNNEL. PHLEBECTOMY - Social History Smoking Status: Former smoker Smokeless Tobacco Status: No Alcohol use: none Drug use: none - Family History Father Living Status: Mother Hx Family Cardiac Disorders: No Medications and Allergies Insulin ASPART [NovoLOG] 14 - 24 unit SQ TIDWM 04/01/17 [History] Ipratropium [place] 2 spr NS BID 01/07/18 [History] Insulin DETEMIR [Levemir Flextouch] 40 unit SQ HS 05/03/18 [History] SitaGLIPtin [Januvia] 100 mg PO DAILY 05/03/18 [History] Nitroglycerin 0.4 mg SL Q5MIN PRN #30 tab.subl 05/04/18 [Rx] Aspirin 81 mg PO DAILY #30 tab.chew 05/19/18 [Rx] Atorvastatin Calcium [Lipitor] 80 mg PO HS #30 tablet 05/19/18 [Rx] Furosemide [Lasix] 20 mg PO DAILY #30 tablet 05/19/18 [Rx] Metoprolol [Lopressor] 12.5 mg PO BID #30 tablet 05/19/18 [Rx] Potassium Chloride [Klor-Con 10] 10 meq PO DAILY #30 tablet.er 05/19/18 [Rx] Clopidogrel [Plavix] 75 mg PO DAILY 07/01/18 [History] Fluticasone Propionate Nasal [Flonase] 1 spr NS BID 07/01/18 [History] 3 Allergy/AdvReac Type Severity Reaction Status Date / Time Amoxicillin Allergy Hives Verified 05/03/18 10:50 clavulanic acid Allergy Hives Verified 05/18/18 07:42 [From Augmentin] wheat Allergy Swelling Verified 01/07/18 08:52 of Lip/Tongue/Throat All Systems Review: The remainder of the systems were reviewed and are negative - Cardiovascular Cardiovascular: as per HPI - Respiratory Respiratory: dyspnea - Hematological/Lymphatic Hematologic/Lymphatic: no easy bleeding Physical Examination Other: General: NAD, AAO, cogent, no O2 HEENT: anicteric Neck: no JVD, no bruits Chest: CTA B/L, no W/R/C Heart: RRR, S1/S2, no S3/S4, no M/G/R Abdominal: BS +, soft, ND, NT Peripheral Pulses: radial pulse 2+ B/L, DP vague B/L Skin/Extremities: no cyanosis, no LE edema Neurological: grossly non-focal. Results 07/01/18 10:11 07/01/18 08:20 - Imaging and Cardiology Echo: report reviewed Cardiac cath: report reviewed - EKG Interpretation EKG results cardiology: personally reviewed, right bundle branch block Consult Discharge Plan - Plan Referrals: Shakira Jackson, LADLE FILLER [Primary Care Provider] -
[2018-07-01] MEDS ORDERED: Naloxone 0.4 MG/ML INJ IVP PRN (12:06)
[2018-07-01] MEDS ORDERED: Nitroglycerin 0.4 MG TAB.SUBL SL PRN (12:08)
[2018-07-01] MEDS ORDERED: Dextrose Gel 15 GM/37.5 ML TUBE PO PRN ×2 (12:56)
[2018-07-01] MEDS ORDERED: D5% in Water 1,000 ML IVC PRN ×2 (12:56→13:04)
[2018-07-01] MEDS ORDERED: *HR* Dextrose 50 % in Water (Syg) 50 ML SYRINGE IVP PRN (12:56)
--- NOTE | 2018-07-01 13:05 | Internal Med History&Physical ---
Date of Encounter: 07/01/18 Time of Encounter: 13:00 Internal Medicine - H&P: HPI Chief complaint: Chest pain History of present illness: Mr. Long is a 58 year old male with pmh of diabetes, CAD s/p 2 caths on May 02 & with 3 stents presenting today with left sided pressure like chest pain. Patient has extensive coronary artery disease and s/p last cath still apparently had some lesions in the distal RCA and LAD came in with complaints of chest pain that he has had intermittently since he was discharged from the hospital. He says the pain became more severe after physical therapy on friday but he went home and took some nitroglycerin. He has been having intermittent severe pain for about a week now, and woke up this am with crushing substernal chest pain radiating to the left arm, neck and back. Symptoms were associated with shortness of breath. Pain was 10/10 and pressure like, and he decided to come to the ER. In the ER, he was started on a heparin drip and cardiology were consulted and plan for a left heart cath today Past Med Surg Social Fam HX - Past Medical History Medical history: arthritis, diabetes, GERD, hyperlipidemia, hypertension, myocardial infarction Additional medical history: see attached records, BPH, shingles, bilateral carpal tunnel, hydronephrosis, neurogenic bladder (self catheterizes), deviated nasal septum, hypertrophy Psychiatric history: no psych history - Past Surgical History Surgical History: cholecystectomy, sinus surgery Additional surgical history: LASIK. R. CARPAL TUNNEL. PHLEBECTOMY - Social History Smoking Status: Former smoker Smokeless Tobacco Status: No Alcohol use: none Drug use: none - Family History Father Living Status: Mother Hx Family Cardiac Disorders: No Internal Medicine - H&P: Meds Insulin ASPART [NovoLOG] 14 - 24 unit SQ TIDWM 04/01/17 [History] Ipratropium [place] 2 spr NS BID 01/07/18 [History] Insulin DETEMIR [Levemir Flextouch] 40 unit SQ HS 05/03/18 [History] SitaGLIPtin [Januvia] 100 mg PO DAILY 05/03/18 [History] Nitroglycerin 0.4 mg SL Q5MIN PRN #30 tab.subl 05/04/18 [Rx] Aspirin 81 mg PO DAILY #30 tab.chew 05/19/18 [Rx] Atorvastatin Calcium [Lipitor] 80 mg PO HS #30 tablet 05/19/18 [Rx] Furosemide [Lasix] 20 mg PO DAILY #30 tablet 05/19/18 [Rx] Metoprolol [Lopressor] 12.5 mg PO BID #30 tablet 05/19/18 [Rx] Potassium Chloride [Klor-Con 10] 10 meq PO DAILY #30 tablet.er 05/19/18 [Rx] Clopidogrel [Plavix] 75 mg PO DAILY 07/01/18 [History] Fluticasone Propionate Nasal [Flonase] 1 spr NS BID 07/01/18 [History] 3 Allergy/AdvReac Type Severity Reaction Status Date / Time Amoxicillin Allergy Hives Verified 05/03/18 10:50 clavulanic acid Allergy Hives Verified 05/18/18 07:42 [From Augmentin] wheat Allergy Swelling Verified 01/07/18 08:52 of Lip/Tongue/Throat All Systems PM: A 10-system review of systems was performed and is negative for pertinent findings except as documented above in the HPI. - Constitutional Constitutional: no chills, no fever(s), no night sweats - EENT Eyes: no change in vision, no discharge, no pain, no photophobia Ears: no ear discharge, no ear pain, no tinnitus Nose, mouth and throat: no dysphagia, no nasal discharge, no neck pain, no sore throat - Cardiovascular Cardiovascular ROS IM: chest pain, dyspnea, dyspnea on exertion, no diaphoresis , no lightheadedness, no palpitations, no syncope - Respiratory Respiratory: no cough, no dyspnea, no wheezing, no excessive phlegm production - Gastrointestinal Gastrointestinal: no abdominal pain, no diarrhea, no hematemesis, no hematochezia, no melena, no nausea, no vomiting - Musculoskeletal Musculoskeletal ROS IM: no numbness, no tingling - Integumentary Integumentary IM: no rash, no unusual bruising - Neurological Neurological ROS: no confusion, no convulsions, no focal weakness, no numbness, no tingling, no tremor(s) - Hematologic/Lymphatic Hematologic/Lymphatic: no easy bruising - Constitutional Vitals: Temp Pulse Resp BP Pulse Ox 98.2 F 69 18 145/85 97 07/01/18 12:21 07/01/18 12:21 07/01/18 12:21 07/01/18 12:21 07/01/18 12:21 General appearance: Present: obese Exam: NAD - Head Head exam: Present: atraumatic, normocephalic - Eye Eye exam: Present: PERRL, conjuntiva pink, sclera anicteric Pupils: Present: PERRL - Neck Neck exam general surgery: Present: supple, trachea midline. Absent: lymphadenopathy - Respiratory Respiratory exam: Present: CTAB. Absent: accessory muscle use, rales, rhonchi, wheezes - Cardiovascular Cardiovascular exam: Present: RRR, +S1, +S2. Absent: diastolic murmur, gallop, rubs, systolic murmur - GI/Abdominal GI/Abdominal exam: Present: normal bowel sounds, soft, no peritoneal signs. Absent: distended, tenderness - Extremities Exam Extremities exam: Present: warm, radial pulses palpable and symmetrical. Absent : calf tenderness, cyanotic, pedal edema - Neurological Exam Neurological exam: Present: CN II-XII intact, oriented X3, no focal deficits. Absent: pronater drift, facial droop, speech deficit - Skin Skin exam: Present: dry, intact Internal Med - H&P Results - Labs CBC & Chem 7: 07/01/18 10:11 07/01/18 08:20 - Assessment and plan (1) Unstable angina pectoris Current Visit: No Status: Acute Assessment and plan: Pt has recurrent angina s/p 2 cardiac caths and 3 stents with reports of lesions in LAD and distal RCA s/p cath. Came in with crushing chest pain today. Cardiology on board. Started on ACS protocol with heparin drip, aspirin, plavix, beta blockers Plan for left heart cath today (2) S/P coronary artery stent placement Current Visit: No Status: Acute Assessment and plan: s/p 3 stents. Continue anticoagulation, aspirin, plavix. For left heart cath (3) CAD (coronary artery disease) Current Visit: No Status: Chronic Assessment and plan: See #1 Qualifiers: Coronary Disease-Associated Artery/Lesion type: [place] artery [place] vs. transplanted heart: [place] heart Associated angina: with unstable angina Qualified Code(s): I25.110 - Atherosclerotic heart disease of [place] coronary artery with unstable angina pectoris (4) Hypertension Current Visit: No Status: Chronic Assessment and plan: Continue home meds Qualifiers: Hypertension type: essential hypertension Qualified Code(s): I10 - Essential (primary) hypertension (5) IDDM (insulin dependent diabetes mellitus) Current Visit: No Status: Chronic Assessment and plan: On levemir and humalog. Monitor fingersticks (6) Morbid obesity Current Visit: No Status: Chronic Assessment and plan: diet and exercise (7) DVT prophylaxis Current Visit: No Status: Acute Assessment and plan: On heparin drip - Time Spent With Patient Total time spent is greater than 50% in coordination of care (as documented) at patient's floor/unit and/or counseling patient:
[2018-07-01] MEDS ORDERED: *HR* Heparin 10,000 UNIT/10 ML VIAL ONE (13:49)
[2018-07-01] MEDS ORDERED: ISOVUE-370 200 ML INFUS..BTL IV ONE ×2 (13:49→16:40)
[2018-07-01] MEDS ORDERED: 0.9 % Sodium Chloride 1,000 ML ONE ×3 (13:49→21:19)
[2018-07-01] MEDS ORDERED: Verapamil 5 MG/2 ML VIAL ONE (13:49)
[2018-07-01] MEDS ORDERED: Heparin 1,000 UNITS/500 mL 500 ML ONE (13:49)
[2018-07-01] MEDS ORDERED: Nitroglycerin 1,000 MCG/10 ML VIAL IV ONE (13:50)
[2018-07-01] MEDS: Insulin LISPRO 300 UNITS/3 ML VIAL SQ SCH ×4 (14:37→21:05)
[2018-07-01] MEDS ORDERED: *HR* FentaNYL (PF) 100 MCG/2 ML VIAL ONE (15:06)
[2018-07-01] MEDS ORDERED: *HR* Midazolam HCl 5 MG/5 ML VIAL IVP ONE (15:06)
--- NOTE | 2018-07-01 15:21 | Pre-Sedation Evaluation ---
Pre-sedation evaluation - Pre-sedation checklist Date of procedure: 07/01/18 Procedure: Heart cath Recent Vitals: Last Vital Signs Temp 98.2 F 07/01/18 12:21 Pulse 69 07/01/18 12:21 Resp 18 07/01/18 12:21 BP 145/85 07/01/18 12:21 Pulse Ox 97 07/01/18 12:21 H&P (including ROS) documented in medical record: Yes Previous reaction to sedatives/anesthetics: No Dietary Status: NPO 6 hours prior to procedure Dentition: No loose teeth or bridges ASA Classification *see protocol: CLASS II-Mild systemic disease Cardiac Registry (Cardio Only) - Functional Capacity Functional Capacity: >=4 METS with symptoms - Clincal Frailty Scale Clinical Frailty Scale: Managing Well
[2018-07-01] MEDS ORDERED: Tirofiban 12.5 MG/250ML 12.5 MG/250 ML BAG ONE (15:43)
[2018-07-01] MEDS ORDERED: Tirofiban 12.5 MG/250ML 12.5 MG/250 ML BAG IVC SCH (16:45)
--- NOTE | 2018-07-01 16:48 | Invasive Diagnostic Lab Proc ---
Name: Mj Long Date of Study: 07/01/2018 Date: 1960 Ht: 66.1in Medical Record#: [id number] Age: 58 Wt: 251.33lb Gender: Male BSA: 2.21 Order #: [id number] BMI: 40.39 Physicians Procedure Physician: Nito Jacobson MD, [facility] Referring MD: Referring MD: Staff Name Position Time In MaggieDayami markn RT (R) Scrub 03:05 PM Tiffanie Seo RN Grain Elevator Clerk 03:05 PM Humphrey Llamas RT (R) Monitor 03:05 PM Indications Indication Unstable Angina Procedures Performed Procedure L HRT ARTERY/VENTRICLE ANGIO PRQ CARD BM STENT W/ANGIO 1 VSL PRQ CARD NOAH STENT W/ANGIO 1 VSL Pre-Procedure Checklist Informed consent is complete signed and on chart. H&P is on chart. ID band is on and ID verified with patient. Patient NPO for procedure The procedure was described for the patient and questions were answered. Blood Pressure: 151/92 ECG is on chart. Rhythm: NSR Plan of Care Patient will tolerate the procedure without complications. Adequate level of comfort will be maintained. Hemodynamics will remain stable Patient will recover from procedure without complications. Respiratory function will be maintained. Cardiac rhythm will remain stable. Patient temperature will be maintained. Patient and/or family have verbalized understanding of the procedure. Patient Education Chief Complaint/Reason for Test: Cardiac Cath Developmental Category: Adult (18-64 years) Developmentally Appropriate for Age: Yes Learning Barriers: None Education Needs: Procedure Education Method: Verbal Information Taught: Cardiac Cath Educational Evaluation: Able to repeat information Intravenous Access Time IV Size Location DC'd Fluid/Drip Rate Units RN 03:07 PM 18g 1 10/23" Patent On Arrival Lt Antecubital 0.9NaCl 25 ml/hr Tiffanie Seo RN Allergies clavulanic acid wheat Amoxicillin Vital Signs Time BP (mmHg) HR (bpm) O2 Sat. RR (bpm) LOC 03:05 PM 151 / 92 63 100 % 16 5 = Fully awake and oriented or at pre-proc level 03:05 PM / % 5 = Fully awake and oriented or at pre-proc level 03:21 PM / % 4 = Oriented but drowsy 03:36 PM / % 4 = Oriented but drowsy 03:51 PM / % 4 = Oriented but drowsy 04:06 PM / % 4 = Oriented but drowsy 03:24 PM 153 / 88 68 96 % 12 03:29 PM 137 / 81 77 95 % 19 03:34 PM 138 / 82 76 83 % 26 03:39 PM 125 / 71 71 99 % 15 03:45 PM 156 / 88 70 99 % 13 03:49 PM 148 / 78 70 96 % 19 03:54 PM 130 / 71 71 95 % 21 03:59 PM 140 / 85 65 98 % 23 04:04 PM 145 / 83 71 97 % 25 04:09 PM 125 / 77 69 99 % 14 04:14 PM 141 / 80 67 97 % 16 03:10 PM 151 / 92 63 99 % 21 03:14 PM 150 / 90 73 97 % 8 03:19 PM 160 / 82 72 99 % 12 04:19 PM 140 / 85 77 98 % 18 04:24 PM 140 / 76 71 98 % 16 04:29 PM 140 / 89 70 99 % 31 04:21 PM / % 5 = Fully awake and oriented or at pre-proc level Procedural Medications Time Medication Dose Units Method Given By 03:10 PM Versed 2 mg Intravenous Tiffanie Seo RN 03:10 PM Fentanyl 50 mcg Intravenous Tiffanie Seo RN 03:10 PM Oxygen 2 L/min nasal cannula Tiffanie Seo RN 03:24 PM Lidocaine 2% 0.5 ml Subcutaneous Nito Jacobson MD, FACC 03:26 PM Heparin 2000 units Nitroglycerin 200 mcg Verapamil 2.5 mg Intraarterial Nito Jacobson MD, FACC 03:30 PM Oxygen 4 L/min nasal cannula Tiffanie Seo RN 03:32 PM Versed 1 mg Intravenous Tiffanie Seo RN 03:32 PM Fentanyl 25 mcg Intravenous Tiffanie Seo RN 03:34 PM Nitroglycerin 200 mcg Intracoronary Nito Jacobson MD 03:41 PM Lidocaine 2% 19 ml Subcutaneous Nito Jacobson MD, FACC 03:49 PM Aggrastat Bolus: 58 ml Intravenous Tiffanie Seo RN 03:49 PM Aggrastat 12.5mg/250ml 21 ml/hr Intravenous Tiffanie Seo RN 03:50 PM Heparin 2000 units Intravenous Tiffanie Seo RN 03:51 PM Nitroglycerin 200 mcg Intracoronary Nito Jacobson MD 04:03 PM Oxygen 2 L/min nasal cannula Tiffanie Seo RN 04:17 PM Nitroglycerin 200 mcg Intracoronary Nito Jacobson MD 04:27 PM Plavix 300 mg Orally Tiffanie Seo RN ASA Classification: CLASS II- Mild systemic disease (i.e. well-controlled diabetes, hypertension, asthma, cigarette smoking) Coby Score Preprocedure Postprocedure Activity 2- Moves 4 extremities sustained head lift Activity 2- Moves 4 extremities sustained head lift Circulation 2- SBP +/= 20 points of pre-anesthetic level Circulation 2- SBP +/= 20 points of pre-anesthetic level Consciousness 2- Awake and alert oriented x 3 Consciousness 2- Awake and alert oriented x 3 O2 Saturation 2- Able to maintain O2 satruation of 92% on room air O2 Saturation 2- Able to maintain O2 satruation of 92% on room air Respiratory 2- Able to deep breathe and cough well Respiratory 2- Able to deep breathe and cough well Total Score 10 Total Score 10 Contrast Agent: Isovue Diagnostic Contrast: 268 ml Total Contrast: 268 ml Fluoro Dose: 123 mGy Activated Clotting Time Time Seconds to Clot 03:49 PM 231 04:31 PM 273 Procedure Log Time Note Enter By 03:04 PM CathStat 03:05 PM Pt arrived to labor utilization superintendent 1 at 15:05 [email or web address] 03:05 PM Patient charges- Angio tray pack, Navilyst 3mm J, Pulse Oximetry and ACIST tubing and transducer [email or web address] 03:05 PM Socorro Serrano RT (R) Position: Scrub Time in: 15:05 [email or web address] 03:05 PM Tiffanie Seo RN Position: Grain Elevator Clerk Time in: 15:05 [email or web address] 03:05 PM Humphrey Llamas RT (R) Position: Monitor Time in: 15:05 [email or web address] 03:05 PM Case Delayed No [email or web address] 03:05 PM Physician arrived 15:05 [email or web address] 03:05 PM Andrew and greet completed [email or web address] 03:05 PM Sign in performed according to hospital policy. [email or web address] 03:05 PM Procedure start 15:05 [email or web address] 03:05 PM Time: 15:05 Patient comfortable and pain free: Yes [email or web address] 03:05 PM Time: 15:05LOC: 5 = Fully awake and oriented or at pre-proc level [email or web address] 03:06 PM Clinical Presentation: Unstable angina [email or web address] 03:06 PM ASA Class CLASS II- Mild systemic disease (i.e. well-controlled diabetes, hypertension, asthma, cigarette smoking) 03:06 PM Hair removed from procedure site in procedure lab using clippers. Bilateral groin prepped with Chloraprep by Socorro Serrano (R), then patient was draped. Skin intact. 03:07 PM Recorded ECG: HR=59 Condition=Condition 1 03:08 PM Vitals capture started with the following parameters, Patient=Adult, Interval=5 min, Initial Buypgptp=829 mmHg, Deflation Rate=3 mmHg, Cuff placed on Right Arm 03:08 PM Hair removed from procedure site in procedure lab using clippers. Right wrist prepped with Chloraprep by Socorro Serrano (R), then patient was draped. Skin intact. 03:10 PM HR=63 bpm, OLQD=422/92 mmhg, SpO2=99.0 %, Resp=21 B/min 03:10 PM Time: 15:10 Versed 2 mg Intravenous Given by Tiffanie Seo RN [facility] 03:10 PM Time: 15:10 Fentanyl 50 mcg Intravenous Given by Tiffanie Seo RN [email or web address] [id number] 03:11 PM Time: 15:10 Oxygen on at 2 L/min per nasal cannula by Tiffanie Seo RN [facility] 03:14 PM HR=73 bpm, HZDC=524/90 mmhg, SpO2=97.0 %, Resp=8 B/min 03:15 PM Pressure channel 1 zero failed. 03:15 PM Pressure channel 1 zeroed. 03:19 PM HR=72 bpm, YSIA=518/82 mmhg, SpO2=99.0 %, Resp=12 B/min 03:20 PM Time: 15:05 Patient comfortable and pain free: Yes 03:21 PM Time: 15:05LOC: 5 = Fully awake and oriented or at pre-proc level 03:24 PM Time out performed according to hospital policy 03:24 PM Time: 15:24 0.5 ml Lidocaine 2% to right radial Subcutaneous Given by Nito Jacobson MD, [facility] 03:24 PM HR=68 bpm, QBZZ=747/88 mmhg, SpO2=96.0 %, Resp=12 B/min 03:24 PM Access obtained by percutaneous puncture. 6Fr 10cm Terumo [place] sheath placed in right Radial artery. [id number] 03:25 PM 0.035 260cm Navilyst 3mmJ wire [id number] 03:26 PM Time: 15:26 Patient given 2,000 units Heparin, 200 mcg Nitroglycerin, and 2.5 mg Verapamil Intraarterial by Nito Jacobson MD, [facility]. This is given to reduce risk of vessel spasm and thrombosis. 03:26 PM 5Fr TIG catheter inserted over the wire [facility] 03:28 PM Recorded Pressure: Ao, HR=77, Condition=Condition 1 (Aorta) Ao 114/84/99 03:29 PM Catheter removed 03:29 PM HR=77 bpm, BTNX=030/81 mmhg, SpO2=95.0 %, Resp=19 B/min 03:30 PM 5Fr 3DRC catheter inserted over the wire [id number] 03:30 PM Time: 15:30 Oxygen on at 4 L/min per nasal cannula by Tiffanie eSo RN 03:31 PM Catheter selectively placed in left ventricle 03:31 PM Recorded Pressure: LV, HR=74, Condition=Condition 1 (Left Ventricle) LV 122/1/13 03:31 PM Bolus angiogram of left Ventricle complete: 10 ml/sec for a total of 20 mls 03:32 PM Time: 15:32 Versed 1 mg Intravenous Given by Tiffanie eSo RN 03:32 PM Time: 15:32 Fentanyl 25 mcg Intravenous Given by Tiffanie Seo RN 03:32 PM Recorded Pressure: LV, Ao, HR=72, Condition=Condition 1 (Left Ventricle) LV 115/-2/14, (Aorta) Ao 103/27/70 03:33 PM RCA angiography performed in multiple views. 03:33 PM Coronary Dominance: right 03:33 PM Catheter removed 03:34 PM 5Fr FL3.5 catheter inserted over the wire [id number] 03:34 PM HR=76 bpm, DASB=736/82 mmhg, SpO2=83.0 %, Resp=26 B/min 03:34 PM Time: 15:34 Nitroglycerin 200 mcg Intracoronary Given by Nito Jacobson MD [email or web address] 03:35 PM LCA angiography performed in multiple views. [email or web address] 03:35 PM Recorded Pressure: Ao, HR=75, Condition=Condition 1 (Aorta) Ao 149/45/83 03:36 PM Time: 15:20 Patient comfortable and pain free: Yes [email or web address] 03:36 PM Time: 15:21LOC: 4 = Oriented but drowsy [email or web address] 03:36 PM Recorded Pressure: Ao, HR=79, Condition=Condition 1 (Aorta) Ao 113/84/98 03:37 PM Lesion found in Proximal LAD. Pre Stenosis: 50 Pre KIEL Flow: [email or web address] 03:37 PM Proximal Left Anterior Descending Coronary Artery with 50% stenosis. If graft is supplying this territory, 0 % stenosis. [email or web address] 03:38 PM Lesion found in Mid Circumflex. Pre Stenosis: 20 Pre KIEL Flow: [email or web address] 03:38 PM Circumflex, Obtuse Marginal, Left Posterior Descending, and Left Posterolateral Coronary Arteries with 20 % stenosis. If graft is supplying this area, 0 % stenosis [email or web address] 03:38 PM Physician reviewing films [email or web address] 03:38 PM Catheter removed [email or web address] 03:39 PM HR=71 bpm, UAIP=593/71 mmhg, SpO2=99.0 %, Resp=15 B/min 03:40 PM Lesion found in Proximal Circumflex. Pre Stenosis: 80 Pre KIEL Flow: [email or web address] 03:40 PM Circumflex, Obtuse Marginal, Left Posterior Descending, and Left Posterolateral Coronary Arteries with 80 % stenosis. If graft is supplying this area, 0 % stenosis [email or web address] 03:40 PM Inflation device was opened. [email or web address] 03:41 PM Time: 15:41 19 ml Lidocaine 2% to right groin Subcutaneous Given by Nito Jacobson MD, [facility] [email or web address] 03:41 PM moved to right groin, spasm to right radial. [email or web address] 03:42 PM Access obtained by percutaneous puncture. 6Fr 10cm Terumo [place] sheath placed in right Femoral artery. [id number] [email or web address] 03:42 PM 3DRC advanced [email or web address] 03:43 PM RCA angiography performed in multiple views. [email or web address] 03:44 PM Lesion found in Distal RCA. Pre Stenosis: 50 Pre KIEL Flow: [email or web address] 03:44 PM Right Coronary, Right Posterior Descending Arteries with Right Posterolateral and Acute Marginal branches with 50 % stenosis. If graft is supplying this area, 0 % stenosis bw 03:45 PM Lesion found in PLD. Pre Stenosis: 20 Pre KIEL Flow: 03:45 PM HR=70 bpm, QZKV=996/88 mmhg, SpO2=99.0 %, Resp=13 B/min 03:45 PM ACT Drawn 03:46 PM 6Fr CLS 3.5 Runway guide catheter was used to cannulate the PCI vessel successfully. reused? No 03:47 PM .014 [place] 190cm guide wire across target lesion- successful. reused? No 03:47 PM Recorded Pressure: Ao, HR=72, Condition=Condition 1 (Aorta) Ao 125/80/100 03:49 PM HR=70 bpm, MDXB=274/78 mmhg, SpO2=96.0 %, Resp=19 B/min 03:49 PM Time: 15:49 Aggrastat Bolus: 58 ml Intravenous Given by Tiffanie Seo RN [place] [facility] 03:49 PM At 15:49 the ACT was 231 seconds. 03:50 PM Time: 15:49 Aggrastat 12.5mg/250ml 21 ml/hr Intravenous Given by Tiffanie Seo RN [place] [facility] 03:50 PM Time: 15:50 Heparin 2000 units Intravenous Given by Tiffanie Seo RN 03:51 PM Time: 15:36LOC: 4 = Oriented but drowsy 03:51 PM Time: 15:36 Patient comfortable and pain free: Yes 03:51 PM Time: 15:51 Nitroglycerin 200 mcg Intracoronary Given by Nito Jacobson MD 03:54 PM HR=71 bpm, FYZC=693/71 mmhg, SpO2=95.0 %, Resp=21 B/min 03:57 PM 2.25mm x 20mm Synergy drug-eluting stent across target lesion- successful Lot #[id number] 03:58 PM Stent deployed @ 12 cynthia for 17 seconds 03:59 PM HR=65 bpm, QLBE=225/85 mmhg, SpO2=98.0 %, Resp=23 B/min 03:59 PM Stent delivery system removed intact. 04:01 PM 2.5 mm x 8mm NC Emerge balloon across target lesion- successful. reused? No [email or web address] 04:03 PM Time: 16:03 Oxygen on at 2 L/min per nasal cannula by Tiffanie Seo RN [email or web address] 04:03 PM Balloon inflated @ 16 cynthia for 12 seconds [email or web address] 04:03 PM Balloon catheter removed intact. [email or web address] 04:04 PM HR=71 bpm, PCCB=022/83 mmhg, SpO2=97.0 %, Resp=25 B/min 04:04 PM Lesion found in Mid LAD. Pre Stenosis: 80 Pre KIEL Flow: [email or web address] 04:04 PM Mid/Distal Left Anterior Descending Coronary Artery and diagonal branches with 80% stenosis. If graft is supplying this area, 0 % stenosis [email or web address] 04:04 PM re position wire to LAD. [email or web address] 04:06 PM Recorded Pressure: Ao, HR=69, Condition=Condition 1 (Aorta) Ao 122/74/94 04:06 PM Time: 15:51 Patient comfortable and pain free: Yes [email or web address] 04:06 PM Time: 15:51LOC: 4 = Oriented but drowsy [email or web address] 04:09 PM .014 [place] 190cm guide wire across target lesion- successful. reused? No [email or web address] 04:09 PM HR=69 bpm, EARJ=690/77 mmhg, SpO2=99.0 %, Resp=14 B/min 04:13 PM 3.0mm x 20mm Synergy drug-eluting stent across target lesion- successful Lot #[id number] [email or web address] 04:14 PM HR=67 bpm, CKZN=483/80 mmhg, SpO2=97.0 %, Resp=16 B/min 04:15 PM Patient stats having chest pain at this time. [email or web address] 04:17 PM Stent deployed @ 12 cynthia for 27 seconds [email or web address] 04:18 PM Time: 16:17 Nitroglycerin 200 mcg Intracoronary Given by Nito Jacobson MD [email or web address] 04:19 PM Stent delivery system removed intact. [email or web address] 04:19 PM HR=77 bpm, GUEC=858/85 mmhg, SpO2=98.0 %, Resp=18 B/min 04:20 PM 3.5 mm x 15mm NC Emerge balloon across target lesion- successful. reused? No [email or web address] 04:21 PM Time: 16:06LOC: 4 = Oriented but drowsy [email or web address] 04:21 PM Time: 16:06 Patient comfortable and pain free: Yes [email or web address] 04:21 PM Balloon inflated @ 14 cynthia for 16 seconds [email or web address] 04:22 PM Balloon inflated @ 14 cynthia for 13 seconds [email or web address] 04:23 PM Balloon catheter removed intact. [email or web address] 04:23 PM Guide wire removed intact. [email or web address] 04:23 PM Guide wire removed intact. [email or web address] 04:23 PM Guide catheter removed intact. [email or web address] 04:24 PM Bolus angiogram of right Femoral complete: 4 ml/sec for a total of 7 mls [email or web address] 04:24 PM HR=71 bpm, WYEF=469/76 mmhg, SpO2=98.0 %, Resp=16 B/min 04:25 PM Arterial sheath pulled, Vasc Band closure device used and was Successful S/N. bw 04:25 PM 9 ml air in Vasc Band. [email or web address] 04:26 PM Sheath left in place to be pulled on floor/holding areaV+Pad [email or web address] 04:26 PM Sign out completed: Radiation Dose 1932.20 mGy, 122.64 Gy/cm2 Fluoro Time: 14.9 Isovue 370 - 200ml contrast 268 ml given by Nito Jacobson MD, [facility]. Complications: NoneCardiac Rehab Consult needed: YesConfirmed administered medications: Yes [email or web address] 04:26 PM Estimated Blood Loss: less than 20cc [email or web address] 04:26 PM Post ECG NSR [email or web address] 04:26 PM Post Blood Pressure 140/76 [email or web address] 04:26 PM Procedure completed at 16:26 07/01/2018 [email or web address] 04:26 PM Information taught Cardiac Cath, PCI, and Vasc Band [email or web address] 04:26 PM Education needs Procedure, Plan of Care, and Disease Process [email or web address] 04:26 PM Learning barriers :Sedated [email or web address] 04:26 PM Education Methods Verbal [email or web address] 04:27 PM Education evaluation Needs further instruction [email or web address] 04:27 PM Site status No bleeding/hematoma - Rt Wrist as reported by Socorro Serrano RT (R) at 16:27 [email or web address] 04:27 PM Site status No bleeding/hematoma - Rt Groin as reported by Socorro Serrano RT (R) at 16:27 [email or web address] 04:27 PM Opsite applied [email or web address] 04:27 PM Delay to floor No [email or web address] 04:27 PM Family placed in consult room. [email or web address] 04:27 PM Complications: None [email or web address] 04:27 PM Time: 16:27 Plavix 300 mg Orally Given by Tiffanie Seo RN 04:29 PM HR=70 bpm, YAHE=784/89 mmhg, SpO2=99.0 %, Resp=31 B/min 04:31 PM At 16:31 the ACT was 273 seconds. [email or web address] 04:31 PM Vitals capture stopped. 04:33 PM Report given to viola MONK Pt taken to 2N Room #1. 16:33 [email or web address] 04:36 PM Time: 16:21 Patient comfortable and pain free: Yes [email or web address] 04:36 PM Time: 16:21LOC: 5 = Fully awake and oriented or at pre-proc level [email or web address] 04:36 PM Patient out of room: 16:36 [email or web address] Complications Complication None None Hemodynamics Pressures Site Systolic/A Wave Diastolic/V Wave Mean AO 114 84 99 LV 122 1 13 LV 115 -2 14 AO 103 27 70 AO 149 45 83 AO 113 84 98 AO 125 80 100 AO 122 74 94 Post Procedure Information Blood Pressure: 140/76 mmHg Rhythm: NSR Post procedural instructions were given Closure Device Time Device Success/Fail 07/01/2018 4:25:00 PM Mechanical Compression Successful Site Checks Time Location Status Staff Sheath In? Note 04:27 PM Rt Wrist No bleeding/hematoma Socorro Serrano RT (R) 04:27 PM Rt Groin No bleeding/hematoma Socorro Serrano RT (R) Pulses Time Site Pre-Procedure Post-Procedure Note 07/01/2018 3:06:00 PM Bilateral DP & PT 1+ 07/01/2018 3:06:00 PM Rt Radial 2+ allens test performed Updated by Humphrey Llamas RT (R) on 07/01/2018 4:40:21 PM Humphrey Llamas RT electronically signed on 07/01/2018 4:40:51 PM with status of Final
--- NOTE | 2018-07-01 19:29 | Event Note ---
Date of Encounter: 07/01/18 Time of Encounter: 19:00 - Cardiology Event Note Patient complains of blurred vision sp PCI LAD and LCX without other neurological deficits. Heparin not restarted, aggrastat will be discontinued. Patient on aspirin and plavix. STAT Head CT ordered, will discuss with primary team.
--- NOTE | 2018-07-01 20:17 | Event Note ---
Date of Encounter: 07/01/18 Time of Encounter: 19:33 Notified at 19:33 that patient is having double vision in his left eye. I immediately arrived to the bedside to evaluate Mr. Long. He reported double vision in his left eye since 17:20 shortly after arriving to his room after [facility]. He denies any weakness, numbness, tingling, or other neurological symptoms at this time. On exam, patient had PERRL, difficulty adducting left eye past midline, left eye nystagmus, double vision in his left eye while both eyes are open, but no double vision while his right eye was closed. Otherwise, cranial nerves 2-12 were grossly intact and he had no further neurological motor or sensory deficits in all extremities. Blood glucose level was 139. Stroke alert was initiated and patient was taken to CT for STAT CT brain w/o contrast. Notified at 20:15 by [place] radiologist that CT brain showed no acute findings. Spoke with [facility] tele-neurologist, who recommended that patient is not a tPA candidate because the last time he was known well was before going to [employer]. CT angiogram head and neck with contrast were ordered, which revealed unremarkable CTA of the head and atherosclerotic changes at the right common carotid artery bifurcation without significant narrowing. MRI head was ordered. Continue Aspirin and statin. Continue NIHSS monitoring. Consider Neurology consult in AM. Impressions Head CT 07/01/18 19:26 IMPRESSION: No acute intracranial abnormality. Findings were discussed with Dr. Vieyra of the [facility] at 8:15 pm on 07/01/2018. D/ / Keshav Baron MD / Keshav Baron MD Interpreting Provider: Keshav Baron MD Head CTA 07/01/18 20:23 IMPRESSION: Unremarkable CTA of the head. D/ / Dilip Kelly / Dilip Kelly Interpreting Provider: Dilip Kelly Neck CTA 07/01/18 20:23 IMPRESSION: Slight limitation due to artifact Atherosclerotic changes at the right bifurcation without significant narrowing No focal significant arterial narrowing otherwise D/ / Dilip Kelly / Dilip Kelly Interpreting Provider: Dilip Kelly
[2018-07-01] MEDS ORDERED: Isovue-370 500 ML INFUS..BTL IV ONE (20:23)
[2018-07-01] MEDS ORDERED: Insulin DETEMIR 100 UNIT/ML X5UNITS SQ SCH (21:00)
[2018-07-01] MEDS: Acetaminophen 325 MG TABLET PO PRN (21:02)
[2018-07-01] MEDS ORDERED: *HR* Atropine Sulfate 1 MG/10 ML SYRINGE ONE (21:19)
[2018-07-01] MEDS: (Ipratropium Bromide [Ipratropium Bromide] 2 SPR) NS SCH (22:13)
[2018-07-01] MEDS ORDERED: Gadolinium Contrast Agent (WT Based) IV PRN (22:21)
[2018-07-02] MEDS: Fluticasone Propionate Nasal 50 MCG/SPRAY BOTTLE NS SCH ×2 (00:32→08:04)
[2018-07-02] MEDS: Acetaminophen 325 MG TABLET PO PRN (02:35)
[2018-07-02] MEDS ORDERED: Ondansetron 4 MG/2 ML VIAL IVP PRN (03:26)
[2018-07-02] MEDS ORDERED: Ondansetron 4 MG/2 ML VIAL ONE (03:29)
[2018-07-02 04:55] LABS: Basophils % 0.4 %; Eosinophils # 0.2 K/mcL (0.0-0.6); Eosinophils % 2.1 %; Hematocrit 46.1 % (37.5-50.1); Hemoglobin 15.9 g/dL (12.9-16.9); Immature Granulocytes % 0.4 % (0-4); Lymphocytes # 1.1 K/mcL (0.6-4.6); Lymphocytes % 11.8 %; Mean Corpuscular HGB Conc 34.5 g/dL (31.6-35.5); Mean Corpuscular Hemoglobin 29.3 pg (28.0-33.3); Mean Corpuscular Volume 84.9 fL (83.0-100.0); Mean Platelet Volume 10.5 fL (9.4-12.4); Monocytes # 0.8 K/mcL (0.0-1.3); Monocytes % 8.4 %; Neutrophils # 7.5 K/mcL (1.6-8.9); Platelet Count 253 K/mcL (140-400); Red Blood Count 5.43 M/mcL (4.19-5.50); Red Cell Distribution Width 14.8 % (11.5-14.5); Segmented Neutrophils % 76.9 %
[2018-07-02 05:21] LABS: BUN/Creatinine Ratio 15 (6-26); Blood Urea Nitrogen 17 mg/dL (6-20); Calcium 9.3 mg/dL (8.6-10.3); Carbon Dioxide 23 mEq/L (23-29); Chloride 103 mEq/L (98-107); Glucose 213 mg/dL (70-105); Magnesium 2.2 mg/dL (1.6-2.6); Osmolality,Calculated 286 (280-300); Phosphorous 3.8 mg/dL (2.7-4.5); Potassium 3.9 mEq/L (3.5-5.1); Sodium 134 mEq/L (136-145); eGFR For Non-African Americans > 60 (> 60)
--- NOTE | 2018-07-02 08:04 | Cardiology Progress Note ---
Date of Encounter: 07/02/18 Time of Encounter: 08:00 Assessment and Plan (1) CAD (coronary artery disease) Current Visit: No Status: Chronic Per Cardiology: Know LAD and RCA NOAH 04/2018. S/p [facility]: Lesion Findings/Interventions * Left Main Coronary Artery The LMCA is angiographically free of disease. * Left Anterior Descending There is a 20% stenosis in the Proximal LAD. There is a 20 mm long, 80% stenosis in the Mid LAD. Patient had angina after crossing the lesion with stent balloon. The lesion has a KIEL flow of 3 and has no thrombus present. An intervention was performed on the Mid LAD with a final stenosis of 0%. There were no lesion complications. The final KIEL flow was 3. Patent stent in LAD. * Circumflex There is a 20 mm long, 70-80% stenosis in the Proximal Circumflex. The lesion has a KIEL flow of 3 and has no thrombus present. An intervention was performed on the Proximal Circumflex with a final stenosis of 0%. There were no lesion complications. The final KIEL flow was 3. There is a 20% stenosis in the Mid Circumflex. * Right Coronary Artery There is a 50% stenosis in the Distal RCA. Patent stent in RCA. LEFT HEART CATH Stent w/ PTCA Single Major Vessel (mid LAD NOAH X 1) Stent w/ PTCA Single Major Vessel (prox mid Lcx NOAH x 1) Indications: Unstable Angina Worsening Angina New Onset Angina <= 2 months Impressions: There is severe two vessel coronary artery disease. The left ventricle is normal and has normal contractility EF 50% Patient had successful PTCA/Drug-Eluting Stent placement in the proximal-mid Circ. Patient had successful PTCA/Drug-Eluting Stent placement in the mid LAD. Echo April 2018 showed EF 55%, no significant valvular dysfunction. On aspirin, Plavix, statin, beta megan. Chest pain-free. Qualifiers: Coronary Disease-Associated Artery/Lesion type: [place] artery [place] vs. transplanted heart: [place] heart Associated angina: with unstable angina Qualified Code(s): I25.110 - Atherosclerotic heart disease of [place] coronary artery with unstable angina pectoris (2) Diplopia Current Visit: Yes Status: Acute Per Cardiology: Left eye diplopia. Head CT negative and MRI pending. Neurology consult pending. Discussion w patient/family: The assessment and plan as outlined above was discussed with the patient and/or family members who expressed understanding and agreement. All questions were answered. Thank you for involving us in the care of your patient. Please call with any questions. Subjective Principal diagnosis: CAD Interval history: Patient seen with at bedside. He denies any chest pain. Reports indigestion-like symptoms last night. Denies any shortness of breath or palpitations. Reports experienced left eye blurred vision, double vision since catheterization and continues at this time. He reports had headache last night , however currently resolved. Denies any slurred speech, facial drooping, confusion. Denies any concerns from his right wrist and right groin site. Objective Vital Signs, Last 4 Hours Temp Pulse Resp BP Pulse Ox 07/02/18 07:32 98.1 F 62 12 107/72 94 07/02/18 06:30 98.1 F 55 18 108/65 97 General: Conversant, No Apparent Distress HEENT: Atraumatic, Normocephaly, Mucus Membranes Moist Neck: No JVD, Normal carotid pulses Cardiac: Reg Rate and Rhythm, Normal S1 and S2, No Murmur Lungs: Normal Breath Sounds, No Wheeze, Rales, Rhonchi Neuro: Alert and responsive, Other (wearing left eye patch, experiencing blurred vision) Abdomen: Soft, Non-Tender Skin: No rashes noted on visualized skin, Other (Right wrist site dry and intact , no hematoma, no ecchymosis, right radial pulse 2+ palpable, right groin dry and intact with no bleeding no hematoma, no ecchymosis, right PT and DP pulses 2 + palpable) Musculoskeletal: No Chest Wall Tenderness Extremities: No Clubbing, No Cyanosis, No Edema, Normal Pulses Results 07/02/18 04:26 07/02/18 04:26 Lab Results Laboratory Tests 05/03/18 05/04/18 07/01/18 05:29 04:00 08:20 Creatinine Est GFR (Non-Af Amer) AST 71 H ALT 32 Troponin I B-Natriuretic Peptide 61 LDL Cholesterol, Calc 65 07/01/18 07/02/18 08:20 04:26 Creatinine 1.10 Est GFR (Non-Af Amer) > 60 AST ALT Troponin I < 0.03 B-Natriuretic Peptide LDL Cholesterol, Calc Impressions Chest X-Ray 07/01/18 08:18 IMPRESSION: 1. Cardiomegaly with mild vascular congestion. D/ / West Todd MD / West Todd MD Interpreting Provider: West Todd MD Head CT 07/01/18 19:26 IMPRESSION: No acute intracranial abnormality. Findings were discussed with Dr. Vieyra of the [facility] at 8:15 pm on 07/01/2018. D/ / Keshav Baron MD / Keshav Baron MD Interpreting Provider: Keshav Baron MD Head CTA 07/01/18 20:23 IMPRESSION: Unremarkable CTA of the head. D/ / Dilip Kelly / Dilip Kelly Interpreting Provider: Dilip Kelly Neck CTA 07/01/18 20:23 IMPRESSION: Slight limitation due to artifact Atherosclerotic changes at the right bifurcation without significant narrowing No focal significant arterial narrowing otherwise D/ / Dilip Kelly / Dilip Kelly Interpreting Provider: Dilip Kelly Active Medications Acetaminophen (Tylenol) 650 mg PO Q6HR PRN PRN Reason: Fever/ mild pain 1-3 Stop: 12/31/18 20:50 Last Admin: 07/02/18 02:35 Dose: 650 mg Aspirin (Aspirin) 81 mg PO DAILY [facility] Stop: 01/01/19 09:01 Atorvastatin Calcium (Lipitor) 80 mg PO HS [facility] Stop: 12/31/18 21:01 Last Admin: 07/01/18 22:08 Dose: 80 mg Calcium Carbonate (Tums) 1,000 mg PO Q4HR PRN; Protocol PRN Reason: Heartburn Stop: 12/31/18 22:21 Last Admin: 07/01/18 23:48 Dose: 1,000 mg Clopidogrel Bisulfate (Plavix) 75 mg PO DAILY [facility] Stop: 01/01/19 09:01 Dextrose/Water (Dextrose 50% (Syg)) 25 ml IVP AD PRN PRN Reason: Hypoglycemia Stop: 12/31/18 12:57 Fluticasone Propionate (Flonase) 50 mcg NS BID ABRAHAM PRN Reason: Protocol Stop: 12/31/18 21:01 Last Admin: 07/02/18 00:32 Dose: Not Given Furosemide (Lasix) 40 mg PO DAILY [facility] Stop: 01/01/19 09:01 Gadobutrol (Gadolinium Contrast Agent (Wt Based)) 1 each IV ONCE PRN; Protocol PRN Reason: SEE COMMENTS Stop: 07/03/18 22:22 Glucagon (Glucagen) 1 mg IM ONCE PRN PRN Reason: Hypoglycemia Stop: 12/31/18 12:57 Glucose (Gluctose) 15 gm PO ONCE PRN PRN Reason: Hypoglycemia Stop: 12/31/18 12:57 Glucose (Gluctose) 30 gm PO ONCE PRN PRN Reason: Hypoglycemia Stop: 12/31/18 12:57 Dextrose (Dextrose 5%) 1,000 mls @ 100 mls/hr IVC .Q10H PRN PRN Reason: HYPOGLYCEMIA Stop: 12/31/18 13:05 Insulin Detemir (Levemir) 40 unit SQ HS [facility] Stop: 12/31/18 21:01 Last Admin: 07/01/18 22:12 Dose: 40 unit Insulin Human Lispro (Humalog) 0 units SQ HS ABRAHAM PRN Reason: Protocol Stop: 12/31/18 13:01 Last Admin: 07/01/18 21:05 Dose: Not Given Insulin Human Lispro (Humalog) 0 units SQ ACHS [facility] PRN Reason: Protocol Stop: 12/31/18 17:01 Last Admin: 07/01/18 21:05 Dose: Not Given Metoprolol Tartrate (Lopressor) 12.5 mg PO BID [facility] Stop: 12/31/18 21:01 Last Admin: 07/01/18 22:09 Dose: 12.5 mg Naloxone HCl (Narcan) 0.4 mg IVP Q2MIN PRN PRN Reason: SEE COMMENTS Stop: 12/31/18 12:07 Nitroglycerin (Nitroglycerin) 0.4 mg SL Q5MIN PRN PRN Reason: Chest Pain Stop: 12/31/18 08:32 Last Admin: 07/01/18 08:50 Dose: 0.4 mg Omeprazole (Prilosec) 40 mg PO DAILY@0630 ABRAHAM PRN Reason: Protocol Stop: 01/01/19 02:12 Last Admin: 07/02/18 05:34 Dose: Not Given Ondansetron HCl (Zofran) 4 mg IVP Q6HR PRN; Protocol PRN Reason: Nausea Stop: 01/01/19 03:27 Last Admin: 07/02/18 03:30 Dose: 4 mg Pharmacy Profile Note (Patient Taking Own Medication) 2 each NS BID [facility] Stop: 12/31/18 21:01 Last Admin: 07/01/18 22:13 Dose: Not Given Sitagliptin Phosphate (Januvia) 100 mg PO DAILY [facility] Stop: 01/01/19 09:01 - Imaging and Cardiology Echo: report reviewed Cardiac cath: report reviewed Consult Discharge Plan - Plan Referrals: Shakira Jackson, [employer]ER [Primary Care Provider] -
[2018-07-02] MEDS: (Ipratropium Bromide [Ipratropium Bromide] 2 SPR) NS SCH (08:05)
[2018-07-02] MEDS: Insulin LISPRO 300 UNITS/3 ML VIAL SQ SCH ×3 (08:13→16:48)
[2018-07-02] MEDS ORDERED: *HR* SitaGLIPtin 100 MG TABLET PO SCH (09:00)
[2018-07-02] MEDS ORDERED: Furosemide 20 MG TABLET PO SCH ×2 (09:00)
[2018-07-02] MEDS ORDERED: Aspirin 81 MG TAB.CHEW PO SCH (09:00)
[2018-07-02 15:59] VITALS: BP 128/84
--- NOTE | 2018-07-02 15:59 | Neurology - Consult Note ---
<Jean Grimaldo P - Last Filed: 07/02/18 17:07> Date of Encounter: 07/02/18 Time of Encounter: 03:15 Assessment and Plan (1) Diplopia Current Visit: Yes Status: Acute Patient has diplopia especially in his left eye He sees distant images tilted and double and spinning, symptoms the same as before Symptom developed first time after he came from cardiac catheterization, no history in the past CTA head and Neck ; Atherosclerotic changes in right common carotid artery bifurcation CT head : no acute intra-cranial pathology Doesn't look like having acute stroke. History of Present Illness Chief complaint: 3:30 HPI: Mr. Long is a 58 year old male reported having double vision after coming to his room after cardiac catheterization . He states that he did same procedure previously , but didnot get such symptom and this is the first time he developed such type of symptoms. He denies any weakness, numbness, tingling, or other focal neurological deficit . He further states that he had double vision in his left eye and when he looks with both eye the distant object looks tilting and image looks double . Looking with one eye he sees double images and object he is looking spinning He feels nauseated , but no vomiting , no headache, LOC, fall , head trauma, no h/o allergic to contrast . Vitals: BP 98.2 pul 69, BP 128/84 labs WBC 9.7 Hb 15.9 Na 134, K 3.9 , BUN 17, Creatinine 1.10 CT head : negative for clot and no acute intracranial patholgy CT head and Neck : Atherosclerotic changes in right common carotid artery bifurcation Past Med Surg Social Fam HX - Past Medical History Medical history: arthritis, diabetes, GERD, hyperlipidemia, hypertension, myocardial infarction Additional medical history: see attached records, BPH, shingles, bilateral carpal tunnel, hydronephrosis, neurogenic bladder (self catheterizes), deviated nasal septum, hypertrophy Psychiatric history: no psych history - Past Surgical History Surgical History: cholecystectomy, sinus surgery Additional surgical history: LASIK. R. CARPAL TUNNEL. PHLEBECTOMY - Social History Smoking Status: Former smoker Smokeless Tobacco Status: No Alcohol use: none Drug use: none - Family History Father Living Status: Mother Hx Family Cardiac Disorders: No Medications and Allergies Insulin ASPART [NovoLOG] 14 - 24 unit SQ TIDWM 04/01/17 [History] Ipratropium [place] 2 spr NS BID 01/07/18 [History] Insulin DETEMIR [Levemir Flextouch] 40 unit SQ HS 05/03/18 [History] SitaGLIPtin [Januvia] 100 mg PO DAILY 05/03/18 [History] Nitroglycerin 0.4 mg SL Q5MIN PRN #30 tab.subl 05/04/18 [Rx] Aspirin 81 mg PO DAILY #30 tab.chew 05/19/18 [Rx] Atorvastatin Calcium [Lipitor] 80 mg PO HS #30 tablet 05/19/18 [Rx] Furosemide [Lasix] 20 mg PO DAILY #30 tablet 05/19/18 [Rx] Metoprolol [Lopressor] 12.5 mg PO BID #30 tablet 05/19/18 [Rx] Potassium Chloride [Klor-Con 10] 10 meq PO DAILY #30 tablet.er 05/19/18 [Rx] Clopidogrel [Plavix] 75 mg PO DAILY 07/01/18 [History] Fluticasone Propionate Nasal [Flonase] 1 spr NS BID 07/01/18 [History] 3 Allergy/AdvReac Type Severity Reaction Status Date / Time Amoxicillin Allergy Hives Verified 05/03/18 10:50 clavulanic acid Allergy Hives Verified 05/18/18 07:42 [From Augmentin] wheat Allergy Swelling Verified 01/07/18 08:52 of Lip/Tongue/Throat All Systems: The remainder of the systems were reviewed and are negative Physical Examination - Vital Signs Vital Signs: Initial Vital Signs Temp Pulse Resp BP Pulse Ox 97.9 F 70 18 163/92 98 07/01/18 08:12 07/01/18 08:12 07/01/18 08:12 07/01/18 08:12 07/01/18 08:12 - Constitutional General appearance: comfortable - Neurologic Sensorimotor examination: intact Detailed motor examination: full strength in all major muscle groups Motor examination - right side: 5/5: deltoids, biceps, triceps, wrist flexion, wrist extension, farm loan inspector, hip flexors, tibialis Anterior, quadriceps, toe extension (EHL), plantarflexion Motor examination - left side: 5/5: deltoids, biceps, triceps, wrist flexion, wrist extension, hip flexors, farm loan inspector, quadriceps, tibialis Anterior, toe extension (EHL), plantarflexion Detailed sensory examination: intact Reflex and gait examination: intact Reflexes: Biceps: 2+, Triceps: 2+, Brachioradialis: 2+, Patella: 2+, Achilles: 2 + Mental Status Examination: awake, alert, oriented to person, oriented to place, oriented to time, follows commands appropriately, answers questions appropriately, no aphasia, no aproxia Cranial nerve examination: PERRL, sensory to face intact, no facial asymmetry is present, hearing is intact symmetrically Cerebellar examination: no dysmetria, performs finger to nose and heel to erwin symmetrically without ataxia, no gait ataxia Results - Laboratory Findings CBC and BMP: 07/02/18 04:26 07/02/18 04:26 Abnormal lab findings: Abnormal lab results RDW 14.8 % (11.5-14.5) H 07/02/18 04:26 Heparin Anti-Xa, Unfract 0.04 IU/mL (0.30-0.70) L 07/01/18 10:11 Sodium 134 mEq/L (136-145) L 07/02/18 04:26 Glucose 213 mg/dL (70-105) H 07/02/18 04:26 POC Glucose 187 mg/dL (70-99) H 07/01/18 12:26 Consult Discharge Plan - Plan Referrals: Shakira Jackson CNP [Primary Care Provider] - 07/10/18 11:00 am Deshawn Chavez CNP [Advanced Practice Nurse] - (OFFICE WILL CALL PATIENT AT HOME WITH FOLLOW UP APPOINTMENT) <Caprice Hernandez I - Last Filed: 07/02/18 17:40> Date of Encounter: 07/02/18 Assessment and Plan (1) Diplopia Current Visit: Yes Status: Acute Pt was seen and examined, my medical decision was reviewed with the Resident Physician, I agree with the documented findings, disposition and treatment plas as described except to the extent set forth below This is a 58 years old male with a history of hypertension and diabetes admitted with angina and had a cardiac catheter and noted to have double vision and blurred vision afterwards continued to be symptomatic. On formal neurological examination patient did have left medial rectus palsy ( PARTIAL III rd cranial nerve PALSY ) with limitation of the movement at the same time he also has slight proptosis of his eyes bilaterally. but no drooping of eyes or any significant pupillary involvement Beside the third cranial nerve palsy , he did not have any other focal motor deficit on examination No evidence of stroke on his MRI scan and at the same time no evidence of any intra-or extracranial stenosis in the cerebral circulation, as CTA of the head and neck both are reported as negative. I suspect it is likely coincident that happened after the cardiac catheterization, as there is no evidence of any embolic infarct on the MRI scan neither on his examination. At this time I would suggest strict sugar and blood pressure control. He may continue use the eye patch as is likely to be symptomatic for a while. Also recommend ophthalmology consultation to exclude any other local causes of symptoms. Continue to monitor his blood pressure and blood sugar continue him on eyes other medication. sTable from neurology standpoint Caprice Hernandez MD History of Present Illness HPI: Mr. Long is a 58 year old male All Systems: The remainder of the systems were reviewed and are negative Physical Examination - Vital Signs Vital Signs: Initial Vital Signs Temp Pulse Resp BP Pulse Ox 97.9 F 70 18 163/92 98 07/01/18 08:12 07/01/18 08:12 07/01/18 08:12 07/01/18 08:12 07/01/18 08:12 Results - Laboratory Findings CBC and BMP: 07/02/18 04:26 07/02/18 04:26 Abnormal lab findings: Abnormal lab results RDW 14.8 % (11.5-14.5) H 07/02/18 04:26 Heparin Anti-Xa, Unfract 0.04 IU/mL (0.30-0.70) L 07/01/18 10:11 Sodium 134 mEq/L (136-145) L 07/02/18 04:26 Glucose 213 mg/dL (70-105) H 07/02/18 04:26 POC Glucose 187 mg/dL (70-99) H 07/01/18 12:26
--- NOTE | 2018-07-02 18:03 | Discharge Summary ---
- NOTES TO OUTPATIENT PROVIDER Notes to Outpatient Provider: Patient to follow-up with ophthalmology Date of Encounter: 07/02/18 Time of Encounter: 11:00 - Discharge Diagnosis (1) Unstable angina pectoris Priority: Primary Status: Acute (2) IDDM (insulin dependent diabetes mellitus) Priority: Secondary Status: Chronic (3) Hypertension Priority: Secondary Status: Chronic Qualifiers: Hypertension type: essential hypertension Qualified Code(s): I10 - Essential (primary) hypertension (4) CAD (coronary artery disease) Priority: Secondary Status: Chronic Qualifiers: Coronary Disease-Associated Artery/Lesion type: [place] artery [place] vs. transplanted heart: [place] heart Associated angina: with unstable angina Qualified Code(s): I25.110 - Atherosclerotic heart disease of [place] coronary artery with unstable angina pectoris (5) Morbid obesity Priority: Secondary Status: Chronic (6) S/P coronary artery stent placement Priority: Secondary Status: Acute Hospital course: Patient is a 58-year-old male with past medical history significant for diabetes , CAD s/p 2 caths on May 02 & with 3 stents who presented to the ER on due to chest pain. Patient has extensive coronary artery disease and s/p last cath still apparently had some lesions in the distal RCA and LAD came in with complaints of chest pain that he has had intermittently since he was discharged from the hospital. He says the pain became more severe after physical therapy he decided to come to the ER for evaluation. During patients hospital stay cardiology was consulted with recommendation for left heart catheterization and patient received NOAH mid LAD and NOAH proximal mid left circumflex. After the procedure, patient developed visual changes of left eye. Head CT was done which showed no acute changes and MRI of the brain showed no evidence of an acute ischemic event. Head and neck CTA showed arthrosclerotic changes at the right bifurcation without significant narrowing. Neurology was consulted and recommended consult for ophthalmology as patient did not appear to have a CVA. Ophthalmology recommends patient follows up as an outpatient for further evaluation. - Time Spent with Patient Total time spent providing and/or coordinating discharge services: Less than 30 minutes - Discharge Medications Home Medications: Insulin ASPART [NovoLOG] 14 - 24 unit SQ TIDWM 04/01/17 [History] Ipratropium [place] 2 spr NS BID 01/07/18 [History] Insulin DETEMIR [Levemir Flextouch] 40 unit SQ HS 05/03/18 [History] SitaGLIPtin [Januvia] 100 mg PO DAILY 05/03/18 [History] Nitroglycerin 0.4 mg SL Q5MIN PRN #30 tab.subl 05/04/18 [Rx] Aspirin 81 mg PO DAILY #30 tab.chew 05/19/18 [Rx] Atorvastatin Calcium [Lipitor] 80 mg PO HS #30 tablet 05/19/18 [Rx] Furosemide [Lasix] 20 mg PO DAILY #30 tablet 05/19/18 [Rx] Metoprolol [Lopressor] 12.5 mg PO BID #30 tablet 05/19/18 [Rx] Potassium Chloride [Klor-Con 10] 10 meq PO DAILY #30 tablet.er 05/19/18 [Rx] Clopidogrel [Plavix] 75 mg PO DAILY 07/01/18 [History] Fluticasone Propionate Nasal [Flonase] 1 spr NS BID 07/01/18 [History] Allergies/Adverse Reactions: 3 Allergy/AdvReac Type Severity Reaction Status Date / Time Amoxicillin Allergy Hives Verified 05/03/18 10:50 clavulanic acid Allergy Hives Verified 05/18/18 07:42 [From Augmentin] wheat Allergy Swelling Verified 01/07/18 08:52 of Lip/Tongue/Throat Date of admission: 07/01/18 12:06 Primary care physician: Shakira Jackson CNP Consults: 07/02/18 07:48 Consult to Cardiac Rehabilitation-Phase1 [CONS] Routine Comment: Reason for Consult: s/p PCI Call Completed: No 07/02/18 14:06 Consult to Neurology [CONS] Routine Consulting Provider: Neurology [facility] Reason for Consult: Blurred vision Call Completed: Yes - Constitutional Vitals: Temp Pulse Resp BP Pulse Ox 98.2 F 69 18 128/84 94 07/02/18 15:55 07/02/18 15:55 07/02/18 15:55 07/02/18 15:55 07/02/18 15:55 General appearance: Present: obese Exam: Gen.: Nonacute distress, alert and oriented 3 ENT: Mucosal membranes moist Respiratory: Lungs are clear to auscultation bilaterally without any wheezing rhonchi or rales Cardiovascular: Normal S1 and S2 regular rate rhythm no murmurs rubs or gallops Abdomen: Soft, nontender and nondistended with positive bowel sounds Extremities: No lower extremity edema Skin: Normal color - Patient Status Disposition: Home, Self-Care Condition: Fair - Discharge Instructions Follow Up With: Shakira Jackson CNP [Primary Care Provider] - 07/10/18 11:00 am Deshawn Chavez CNP [Advanced Practice Nurse] - (OFFICE WILL CALL PATIENT AT HOME WITH FOLLOW UP APPOINTMENT)
== END 2018-07-02 18:57 | disposition home or self-care (01) | DRG 247 ==
LOC: EMEROOARM 08:09 → 3BNU 08:09 → EMEROOARM 09:44 → 3BNU 12:05 → SUATTDRO 12:06 → 2NNU 16:56
PROVIDERS: ADMIT Student in an Organized Health Care Education/Training Program; ATTEND Hospitalist

== ENCOUNTER 2018-07-05 00:01 | Observation (INO) ==
[2018-07-05] MEDS ORDERED: Aspirin 81 MG TAB.CHEW PO ONE (00:19)
[2018-07-05] MEDS ORDERED: Nitroglycerin 1 INCH/GM PACKET TP ONE (00:19)
--- NOTE | 2018-07-05 00:26 | Emergency Department Note ---
Disposition Clinical Impression: S/P coronary artery stent placement Chest pain Qualifiers: Ischemic chest pain type: unspecified angina pectoris type Disposition: Admitted As Inpatient Condition: Fair Time of Disposition: 04:52 Chest Pain HPI - General Chief Complaint: ED Chest Pain Stated Complaint: chest pain Time Seen by Provider: 07/05/18 00:10 Source: patient, family Limitations: no limitations Vital Signs Reviewed: Yes Nursing Notes Reviewed: Yes - History of Present Illness HPI Narrative: 58-year-old male presents from home for evaluation of chest pain. Described as substernal chest heaviness with left-sided chest dullness that radiates to his back as well as sharp stabbing sensation down his left arm. This occurred at rest. Similar in character but more intense than symptoms he had 4 days ago when he was diagnosed with an [place] and had a cardiac catheter. He took 81 mg aspirin at home and 3 sublingual nitroglycerin; the last 2 some legal nitroglycerin 5 minutes apart and did improve his symptoms. He now has mild chest heaviness. While inbound to the emergency department, he had right wrist pain where there was attempted right radial artery access. He notes that, yesterday, he had pain in his right thigh below the right femoral arterial access site. ROS: Positive: As above Negative: Fever, chills, nausea, vomiting, palpitations, diaphoresis, dyspnea Severity scale (1-10): 4 - Related Data Home Medications Medication Instructions Recorded Confirmed Insulin ASPART [NovoLOG] 14 - 24 unit SQ TIDWM 04/01/17 07/01/18 Ipratropium [place] 2 spr NS BID 01/07/18 07/01/18 Insulin DETEMIR [Levemir Flextouch] 40 unit SQ HS 05/03/18 07/01/18 SitaGLIPtin [Januvia] 100 mg PO DAILY 05/03/18 07/01/18 Clopidogrel [Plavix] 75 mg PO DAILY 07/01/18 07/01/18 Fluticasone Propionate Nasal 1 spr NS BID 07/01/18 07/01/18 [Flonase] Previous Rx's Medication Instructions Recorded Nitroglycerin 0.4 mg SL Q5MIN PRN #30 tab.subl 05/04/18 Aspirin 81 mg PO DAILY #30 tab.chew 05/19/18 Atorvastatin Calcium [Lipitor] 80 mg PO HS #30 tablet 05/19/18 Furosemide [Lasix] 20 mg PO DAILY #30 tablet 05/19/18 Metoprolol [Lopressor] 12.5 mg PO BID #30 tablet 05/19/18 Potassium Chloride [Klor-Con 10] 10 meq PO DAILY #30 tablet.er 05/19/18 Allergies Allergy/AdvReac Type Severity Reaction Status Date / Time Amoxicillin Allergy Hives Verified 07/05/18 00:22 clavulanic acid Allergy Hives Verified 07/05/18 00:22 [From Augmentin] wheat Allergy Swelling Verified 07/05/18 00:22 of Lip/Tongue/Throat All systems ED: reviewed and negative except as stated. Review of Systems: As Per HPI Chest Pain PMH - Past Medical History Medical history: Reports: arthritis, diabetes, GERD, hyperlipidemia, hypertension, myocardial infarction Surgical history: Reports: cholecystectomy, sinus surgery Psychiatric history: Reports: no psych history - Social History Smoking Status: Former smoker Alcohol use: Reports: none Drug use: Reports: none Physical Exam Vital Signs Reviewed General: Patient is alert, oriented, and in no acute distress. Head: atraumatic, normocephalic Eye: normal appearance, no scleral icterus, no conjunctival injection ENT: mucous membranes moist, normal external ear exam Neck: normal inspection, trachea midline, full ROM Chest: normal inspection, symmetric chest rise Respiratory: Good respiratory effort. Bilateral breath sounds are clear without wheezing, crackles, or rhonchi. Cardiovascular: Regular rate and rhythm. No clicks, rubs, gallops, or murmors. Normal heart sounds. Bilateral radial posterior tibial pulses 2/4 and equal. Abdomen: Bowel sounds present normoactive. Abdomen is soft, nondistended, and nontender. No guarding or rebound. No organomegaly noted. Musculoskeletal: Spontaneously moving all extremities. Skin: warm, dry, intact. Right radial access is clean, dry, with mild ecchymosis. Right groin site is clean, dry, mildly tender, with ecchymosis, no palpable swelling. Neuro: Alert and oriented x4. Sensation light touch intact. Psych: Patient's affect is appropriate for situation. - General Limitations: no limitations General appearance: alert Course Course Narrative: EKG shows no acute ischemic changes. Chest x-ray is unremarkable. Serum hematology is unremarkable. Patient does not have elevation troponins. What is concerning is the patient's story. It is similar to him in character but more severe in intensity than when he was admitted for his [place]. He has been provided. Aspirin. Will hold on heparin at this time given his normal troponin in no acute changes on EKG. I discussed the patient with DM in hospitals, Dr. Humphrey, who agrees to accept the patient for overnight cycling of troponins. Patient has neurogenic bladder and must self catheter at home. He requests a [place] catheter is he will be unable to self catheter given all the wires and monitoring in the hospital. I discussed the above with the admitting hospitalist,Dr. Torres, who agrees to accept the patient for continued evaluation and management overnight with training troponins. EKG dated 07/05/18 at 00:08 interpreted as sinus rhythm with a rate of 67. Normal [place]. IN 159, QTc 468. Nonspecific ST-T changes. Q waves present in inferior lateral leads. Compared to previous dated 07/01/2018 showing no acute ischemic changes or comparison. Chest X-Ray 07/05/18 00:19 IMPRESSION: Cardiomegaly and mild pulmonary edema, unchanged. D/ / Yandel Dos Santos MD / Yandel Dos Santos MD Interpreting Provider: Yandel Dos Santos MD Vital Signs Temperature 97.8 F 07/05/18 00:06 Pulse Rate 70 07/05/18 00:06 Respiratory Rate 14 07/05/18 00:06 Blood Pressure 157/78 07/05/18 00:06 O2 Sat by Pulse Oximetry 100 07/05/18 00:06 Temperature 97.6 F 07/05/18 04:23 Pulse Rate 52 07/05/18 04:23 Respiratory Rate 16 07/05/18 04:23 Blood Pressure 118/81 07/05/18 04:23 O2 Sat by Pulse Oximetry 96 07/05/18 04:23 Oxygen Delivery Oxygen Delivery Room Air Chest Pain - Lab Data Result diagrams: 07/05/18 00:00 07/05/18 00:00 Lab Results 07/05/18 07/05/18 07/05/18 Range/Units 00:00 00:00 00:00 WBC 10.9 (4.3-11.1) K/mcL RBC 5.17 (4.19-5.50) M/mcL Hgb 14.7 (12.9-16.9) g/dL Hct 43.1 (37.5-50.1) % MCV 83.4 (83.0-100.0) fL MCH 28.4 (28.0-33.3) pg MCHC 34.1 (31.6-35.5) g/dL RDW 14.3 (11.5-14.5) % Plt Count 231 (140-400) K/mcL MPV 10.3 (9.4-12.4) fL Immature Gran % 0.3 (0-4) % Seg Neutrophils % 65.1 % Lymphocytes % 23.9 % Monocytes % 7.6 % Eosinophils % 2.7 % Basophils % 0.4 % Neutrophils # 7.1 (1.6-8.9) K/mcL Lymphocytes # 2.6 (0.6-4.6) K/mcL Monocytes # 0.8 (0.0-1.3) K/mcL Eosinophils # 0.3 (0.0-0.6) K/mcL Basophils # 0.0 (0.0-0.2) K/mcL PT 11.1 (9.4-12.1) Seconds INR 1.0 APTT 29.9 (26.0-36.0) Seconds Sodium 136 (136-145) mEq/L Potassium 3.4 L (3.5-5.1) mEq/L Chloride 101 (98-107) mEq/L Carbon Dioxide 25 (23-29) mEq/L BUN 15 (6-20) mg/dL Creatinine 1.27 (0.70-1.30) mg/dL Est GFR ( Amer) > 60 (> 60) Est GFR (Non-Af Amer) 58 L (> 60) BUN/Creatinine Ratio 12 (6-26) Glucose 221 H (70-105) mg/dL Calculated Osmolality 290 (280-300) Calcium 9.5 (8.6-10.3) mg/dL Troponin I 0.03 (< 0.04) ng/mL
[2018-07-05 00:45] LABS: Basophils % 0.4 %; Eosinophils # 0.3 K/mcL (0.0-0.6); Eosinophils % 2.7 %; Hematocrit 43.1 % (37.5-50.1); Hemoglobin 14.7 g/dL (12.9-16.9); Immature Granulocytes % 0.3 % (0-4); Lymphocytes # 2.6 K/mcL (0.6-4.6); Lymphocytes % 23.9 %; Mean Corpuscular HGB Conc 34.1 g/dL (31.6-35.5); Mean Corpuscular Hemoglobin 28.4 pg (28.0-33.3); Mean Corpuscular Volume 83.4 fL (83.0-100.0); Mean Platelet Volume 10.3 fL (9.4-12.4); Monocytes # 0.8 K/mcL (0.0-1.3); Monocytes % 7.6 %; Neutrophils # 7.1 K/mcL (1.6-8.9); Platelet Count 231 K/mcL (140-400); Prothrombin Time 11.1 Seconds (9.4-12.1); Red Blood Count 5.17 M/mcL (4.19-5.50); Red Cell Distribution Width 14.3 % (11.5-14.5); Segmented Neutrophils % 65.1 %
[2018-07-05 00:46] LABS: Activated Partial Thrombo Time 29.9 Seconds (26.0-36.0)
[2018-07-05 00:59] LABS: BUN/Creatinine Ratio 12 (6-26); Blood Urea Nitrogen 15 mg/dL (6-20); Calcium 9.5 mg/dL (8.6-10.3); Carbon Dioxide 25 mEq/L (23-29); Chloride 101 mEq/L (98-107); Glucose 221 mg/dL (70-105); Osmolality,Calculated 290 (280-300); Potassium 3.4 mEq/L (3.5-5.1); Sodium 136 mEq/L (136-145); eGFR For Non-African Americans 58 (> 60)
[2018-07-05 01:00] LABS: Troponin I 0.03 ng/mL (< 0.04)
[2018-07-05] MEDS ORDERED: Nitroglycerin 0.4 MG TAB.SUBL SL PRN (02:42)
[2018-07-05] MEDS ORDERED: Dextrose Gel 15 GM/37.5 ML TUBE PO PRN ×2 (02:45)
--- NOTE | 2018-07-05 02:49 | Emergency Department Note ---
Disposition Clinical Impression: Chest pain, S/P coronary artery stent placement Disposition: Admitted As Inpatient Condition: Fair General Adult HPI - General Chief complaint: ED Chest Pain Stated complaint: chest pain Time Seen by Provider: 07/05/18 00:10 Source: patient, family Limitations: no limitations Nursing Notes Reviewed: Yes Vital Signs Reviewed: Yes - History of Present Illness Pain Scale: 4 - Related Data Home Medications Medication Instructions Recorded Confirmed Insulin ASPART [NovoLOG] 14 - 24 unit SQ TIDWM 04/01/17 07/01/18 Ipratropium [place] 2 spr NS BID 01/07/18 07/01/18 Insulin DETEMIR [Levemir Flextouch] 40 unit SQ HS 05/03/18 07/01/18 SitaGLIPtin [Januvia] 100 mg PO DAILY 05/03/18 07/01/18 Clopidogrel [Plavix] 75 mg PO DAILY 07/01/18 07/01/18 Fluticasone Propionate Nasal 1 spr NS BID 07/01/18 07/01/18 [Flonase] Previous Rx's Medication Instructions Recorded Nitroglycerin 0.4 mg SL Q5MIN PRN #30 tab.subl 05/04/18 Aspirin 81 mg PO DAILY #30 tab.chew 05/19/18 Atorvastatin Calcium [Lipitor] 80 mg PO HS #30 tablet 05/19/18 Furosemide [Lasix] 20 mg PO DAILY #30 tablet 05/19/18 Metoprolol [Lopressor] 12.5 mg PO BID #30 tablet 05/19/18 Potassium Chloride [Klor-Con 10] 10 meq PO DAILY #30 tablet.er 05/19/18 Allergies Allergy/AdvReac Type Severity Reaction Status Date / Time Amoxicillin Allergy Hives Verified 07/05/18 00:22 clavulanic acid Allergy Hives Verified 07/05/18 00:22 [From Augmentin] wheat Allergy Swelling Verified 07/05/18 00:22 of Lip/Tongue/Throat Past Medical History - Past Medical History Medical history: Reports: arthritis, diabetes, GERD, hyperlipidemia, hypertension, myocardial infarction Surgical history: Reports: cholecystectomy, sinus surgery Psychiatric history: Reports: no psych history - Social History Smoking Status: Former smoker Smokeless Tobacco Status: No Alcohol use: Reports: none Drug use: Reports: none Physical Exam - General Limitations: no limitations General appearance: alert Course Vital Signs Temperature 97.8 F 07/05/18 00:06 Pulse Rate 70 07/05/18 00:06 Respiratory Rate 14 07/05/18 00:06 Blood Pressure 157/78 07/05/18 00:06 O2 Sat by Pulse Oximetry 100 07/05/18 00:06 Temperature 97.8 F 07/05/18 00:06 Pulse Rate 55 07/05/18 02:50 Respiratory Rate 18 07/05/18 02:50 Blood Pressure 153/96 07/05/18 02:50 O2 Sat by Pulse Oximetry 97 07/05/18 02:50 Oxygen Delivery Oxygen Delivery Room Air Medical Decision Making - Medical Records Medical records reviewed: Yes I reviewed the patient's medical records. - Lab Data Lab results reviewed: Yes I reviewed the patient's lab results. Result diagrams: 07/05/18 00:00 07/05/18 00:00 Lab Results 07/05/18 07/05/18 07/05/18 Range/Units 00:00 00:00 00:00 WBC 10.9 (4.3-11.1) K/mcL RBC 5.17 (4.19-5.50) M/mcL Hgb 14.7 (12.9-16.9) g/dL Hct 43.1 (37.5-50.1) % MCV 83.4 (83.0-100.0) fL MCH 28.4 (28.0-33.3) pg MCHC 34.1 (31.6-35.5) g/dL RDW 14.3 (11.5-14.5) % Plt Count 231 (140-400) K/mcL MPV 10.3 (9.4-12.4) fL Immature Gran % 0.3 (0-4) % Seg Neutrophils % 65.1 % Lymphocytes % 23.9 % Monocytes % 7.6 % Eosinophils % 2.7 % Basophils % 0.4 % Neutrophils # 7.1 (1.6-8.9) K/mcL Lymphocytes # 2.6 (0.6-4.6) K/mcL Monocytes # 0.8 (0.0-1.3) K/mcL Eosinophils # 0.3 (0.0-0.6) K/mcL Basophils # 0.0 (0.0-0.2) K/mcL PT 11.1 (9.4-12.1) Seconds INR 1.0 APTT 29.9 (26.0-36.0) Seconds Sodium 136 (136-145) mEq/L Potassium 3.4 L (3.5-5.1) mEq/L Chloride 101 (98-107) mEq/L Carbon Dioxide 25 (23-29) mEq/L BUN 15 (6-20) mg/dL Creatinine 1.27 (0.70-1.30) mg/dL Est GFR ( Amer) > 60 (> 60) Est GFR (Non-Af Amer) 58 L (> 60) BUN/Creatinine Ratio 12 (6-26) Glucose 221 H (70-105) mg/dL Calculated Osmolality 290 (280-300) Calcium 9.5 (8.6-10.3) mg/dL Troponin I 0.03 (< 0.04) ng/mL - Radiology Data Radiology results reviewed: Yes I reviewed the patient's radiology results. Chest X-Ray 07/05/18 00:19 IMPRESSION: Cardiomegaly and mild pulmonary edema, unchanged. D/ / Yandel Dos Santos MD / Yandel Dos Santos MD Interpreting Provider: Yandel Dos Santos MD - EKG Data EKG #1 EKG attestation: Yes I reviewed and interpreted this EKG. EKG results narrative: EKG shows a normal sinus rhythm with ventricular rate is 67. Right bundle branch block. No ectopy or arrhythmia. No acute ischemic changes. No significant change from 07/01/2018. Attestation Statement - Attestation Attestation: I, Krzysztof Le MD, personally evaluated this patient and discussed their management with the resident physician. I reviewed the resident's note and agree with the documented findings, medical decision making, and plan of care. 58-year-old male presents to the emergency department with a complaint of intermittent left-sided chest pain all day today. The pain radiates through to the back and down the left arm. He has had some mild intermittent diaphoresis. No shortness of breath. No nausea or vomiting. Patient has a history of coronary artery disease and just had 2 coronary artery stents placed 3 days ago. On examination patient is a well-developed obese male in no acute distress. He is alert and oriented 3. There is no cyanosis or diaphoresis. Breath sounds are clear and equal bilaterally. Heart regular rate and rhythm. Abdomen soft and nontender with normal bowel sounds. One plus pedal edema bilaterally. Labs reviewed. Troponin negative. No acute changes on EKG. Chest x-ray shows cardiomegaly and mild pulmonary edema but unchanged. The hospitalist, Dr. Humphrey, was consulted and accepted admission of the patient.
[2018-07-05] MEDS ORDERED: Potassium Chloride Elixir 20 MEQ/15 ML UDC PO ONE (02:51)
--- NOTE | 2018-07-05 03:10 | Internal Med History&Physical ---
Date of Encounter: 07/05/18 Time of Encounter: 03:04 Internal Medicine - H&P: HPI Chief complaint: Chest pain Admitted From: Home Plans for Post Hospital Care: Home History of present illness: Mj Long is a 58 year old obese man with a history of hypertension, diabetes and coronary artery disease who underwent PCI in April 2018 after an AMI and received a total of 3 stents then and presented again recently on with unstable angina requiring another cardiac cath with 2 more stents placed. On review of the report he was seen to have severe 2 vessel disease. Of note, after his procedure he developed diplopia for which he has been evaluated by neurology and an outside roller pneumatic. He presents now with the complaint of precordial pain that commenced at rest. He reports adherence to his medications. He describes the pain as a heavy pressure with sharp exacerbations and radiation into his left arm. He became diaphoretic and only obtained mild relief with the nitroglycerin he took at home. On arrival here he was given loading of ASA and nitropaste applied to his chest. Vitals have remained within normal limits. Past Med Surg Social Fam HX - Past Medical History Medical history: arthritis, diabetes, GERD, hyperlipidemia, hypertension, myocardial infarction Additional medical history: see attached records, BPH, shingles, bilateral carpal tunnel, hydronephrosis, neurogenic bladder (self catheterizes), deviated nasal septum, hypertrophy Psychiatric history: no psych history - Past Surgical History Surgical History: cholecystectomy, sinus surgery Additional surgical history: LASIK. R. CARPAL TUNNEL. PHLEBECTOMY - Social History Smoking Status: Former smoker Smokeless Tobacco Status: No Alcohol use: none Drug use: none - Family History Father Living Status: Mother Hx Family Cardiac Disorders: No Internal Medicine - H&P: Meds Insulin ASPART [NovoLOG] 14 - 24 unit SQ TIDWM 04/01/17 [History] Ipratropium [place] 2 spr NS BID 01/07/18 [History] Insulin DETEMIR [Levemir Flextouch] 40 unit SQ HS 05/03/18 [History] SitaGLIPtin [Januvia] 100 mg PO DAILY 05/03/18 [History] Nitroglycerin 0.4 mg SL Q5MIN PRN #30 tab.subl 05/04/18 [Rx] Aspirin 81 mg PO DAILY #30 tab.chew 05/19/18 [Rx] Atorvastatin Calcium [Lipitor] 80 mg PO HS #30 tablet 05/19/18 [Rx] Furosemide [Lasix] 20 mg PO DAILY #30 tablet 05/19/18 [Rx] Metoprolol [Lopressor] 12.5 mg PO BID #30 tablet 05/19/18 [Rx] Potassium Chloride [Klor-Con 10] 10 meq PO DAILY #30 tablet.er 05/19/18 [Rx] Clopidogrel [Plavix] 75 mg PO DAILY 07/01/18 [History] Fluticasone Propionate Nasal [Flonase] 1 spr NS BID 07/01/18 [History] 3 Allergy/AdvReac Type Severity Reaction Status Date / Time Amoxicillin Allergy Hives Verified 07/05/18 00:22 clavulanic acid Allergy Hives Verified 07/05/18 00:22 [From Augmentin] wheat Allergy Swelling Verified 07/05/18 00:22 of Lip/Tongue/Throat All Systems PM: A 10-system review of systems was performed and is negative for pertinent findings except as documented above in the HPI. - Constitutional Vitals: Temp Pulse Resp BP Pulse Ox 97.8 F 55 18 153/96 97 07/05/18 00:06 07/05/18 02:50 07/05/18 02:50 07/05/18 02:50 07/05/18 02:50 Exam: Vitals: Reviewed General: Obese, NAD Skin: Diaphoretic, warm. HEENT: Moist mucous membranes. No conjunctivae pallor. Left eye pupil miotic and does not cross midline to the right side. Neck: No lymphadenopathy. No JVD. No carotid bruits. No palpable thyroid. Chest: Normal thoracic expansion. Normal breath sounds. Clear to auscultation. Heart: Normal S1 & S2; rhythmic. No rubs or murmurs. Abdomen: Obese, soft and non-tender to palpation. No peritoneal reaction. Extremities: No clubbing, cyanosis or edema. No calf tenderness. Normal distal pulses. Neurological: Awake, alert and oriented to person, place and time. No focal deficits. Psych: Affect appropriate. Internal Med - H&P Results - Labs CBC & Chem 7: 07/05/18 00:00 07/05/18 00:00 - EKG Data EKG comments: 07/05/18 03:11 Normal sinus rhythm with Q waves. - Impressions CXR reviewed independently by me and notable for cardiomegaly with faint signs of pulmonary vascular congestion. - Assessment and plan (1) Chest pain, rule out acute myocardial infarction Current Visit: Yes Status: Acute Assessment and plan: Typical symptoms in a high risk patient. Suggestive of unstable angina. Will obtain repeat EKG and monitor on telemetry. Trend troponin values. Will continue dual antiplatelet therapy in the morning. Will benefit from cardiology re-evaluation given the recent stent placements. If troponin rises or has rebellious chest pain, will start heparin and nitroglycerin gtt. (2) Diplopia Current Visit: Yes Status: Acute Assessment and plan: My exam findings and the patient's history suggests to me that he has developed internuclear ophthalmoplegia. It is a rare complication of cardiac catherization and thought to be secondary to ischemia of the medial longitudinal fasciculus following microembolization as a result of the procedure. The prognosis is good as it is frequently transient. Keep eye covered for now. (3) CAD (coronary artery disease) Current Visit: Yes Status: Chronic Assessment and plan: Will continue high intensity statin and dual antiplatelet therapy. Qualifiers: Coronary Disease-Associated Artery/Lesion type: [place] artery [place] vs. transplanted heart: [place] heart Associated angina: with unstable angina Qualified Code(s): I25.110 - Atherosclerotic heart disease of [place] coronary artery with unstable angina pectoris (4) Hypertension Current Visit: Yes Status: Chronic Assessment and plan: Acceptable BP values for now. Continue home meds. Qualifiers: Hypertension type: essential hypertension Qualified Code(s): I10 - Essential (primary) hypertension (5) IDDM (insulin dependent diabetes mellitus) Current Visit: Yes Status: Chronic Assessment and plan: Poorly controlled with last A1C of 7.7%. Will place on insulin sliding scale. (6) Morbid obesity Current Visit: Yes Status: Chronic Assessment and plan: Will benefit from nutrition consultation. (7) Neurogenic bladder Current Visit: Yes Status: Chronic Assessment and plan: Unclear etiology; he straight caths frequently. Possibly associated with diabetes? (8) DVT prophylaxis Current Visit: Yes Status: Acute Assessment and plan: SubQ heparin for now. - Time Spent With Patient Total time spent is greater than 50% in coordination of care (as documented) at patient's floor/unit and/or counseling patient: Greater than 35 minutes
[2018-07-05] MEDS: *HR* Heparin 5,000 UNIT/ML VIAL SQ SCH ×3 (04:19→20:49)
[2018-07-05] MEDS: Insulin LISPRO 300 UNITS/3 ML VIAL SQ SCH ×3 (06:14→17:29)
[2018-07-05] MEDS: Aspirin 81 MG TAB.CHEW PO SCH (08:39)
[2018-07-05] MEDS: Furosemide 20 MG TABLET PO SCH (08:39)
[2018-07-05] MEDS: Fluticasone Propionate Nasal 50 MCG/SPRAY BOTTLE NS SCH ×2 (08:40→20:50)
[2018-07-05] MEDS: Acetaminophen 325 MG TABLET PO PRN ×2 (09:02→18:59)
--- NOTE | 2018-07-05 09:34 | Cardiology Consult Note ---
Date of Encounter: 07/05/18 Time of Encounter: 09:29 Assessment and Plan (1) Chest pain Current Visit: Yes Status: Acute angina (microvascular and inflammmation components) and diabetic neuropathy, possible some paricardial component. - imdur 30, c/w BB. uptitration based on cp and BP. can add CCB or ranolozine if can't tolerate high dose of imdur - limite Echo - c/w DAPT, statin Qualifiers: Chest pain type: chest pain due to myocardial ischemia Ischemic chest pain type: stable angina pectoris Qualified Code(s): I20.8 - Other forms of angina pectoris (2) CAD (coronary artery disease) Current Visit: Yes Status: Chronic 3-V CAD recent NOAH to midLAD and prox-mLCx 07/01/18 NOAH x2 to RCA 05/02/18 NOAH to mid LAD 05/18/18) - + angina likely microvascular and inflammmation components - see primary cp section Qualifiers: Coronary Disease-Associated Artery/Lesion type: [place] artery [place] vs. transplanted heart: [place] heart Associated angina: with stable angina Qualified Code(s): I25.118 - Atherosclerotic heart disease of [place] coronary artery with other forms of angina pectoris (3) IDDM (insulin dependent diabetes mellitus) Current Visit: Yes Status: Chronic start lisinopril (4) Hypertension Current Visit: Yes Status: Chronic BP need better ctr. - add vinicio, titration - can add CCB for both angina and BP Qualifiers: Hypertension type: essential hypertension Qualified Code(s): I10 - Essential (primary) hypertension (5) Dyspnea Current Visit: No Status: Acute Iscehmia induced likely, better after PCI. R/o CMP. limited echo for LV/RV function, RVSP, paricardium Qualifiers: Dyspnea type: dyspnea on exertion Qualified Code(s): R06.09 - Other forms of dyspnea (6) Diplopia Current Visit: Yes Status: Acute Left, post PCI. etiology uncertain. c/w DAPT. f/u ophth Discussion w patient/family: The assessment and plan as outlined above was discussed with the patient and/or family members who expressed understanding and agreement. All questions were answered. Thank you for involving us in the care of your patient. Please call with any questions. History of Present Illness Consult date: 07/05/18 Requesting physician: Mallory Avelar Consult reason: chest pain Chief complaint: chest pain History of present illness: Mr. Long is a 58 year old male 3-V CAD then recent NOAH to midLAD and prox-mLCx 07/01/18 for UA (NOAH x2 to RCA 05/02/18 NOAH to mid LAD 05/18/18), DM, HTN, ex- smoker. C/o 2nd day after PCI, daily intermittent substernal vague discomfort vague radiation to back 3-5/10, at rest occ worse when walking, lasting seconds, relief by rest or spontaneous, feels partially similar to prior to PCI. + positional feature, non-pleuritic 2nd type of sharp pain at rest lasting seconds with pins/needles features. Dyspnea feels better after PCI, but still present. No palpitation, dizziness, syncope, LE edema. Post PCI c/w left diplopia with no acute MRI findings, ophthalmology Dx partial oculomotor palsy. ECG no ischemic findings, neg trop Hypertensive on admission Not on Imdur or vinicio . 07/01/18 [facility] Impressions: There is severe two vessel coronary artery disease. The left ventricle is normal and has normal contractility EF 50% Patient had successful PTCA/Drug-Eluting Stent placement in the proximal-mid Circ. Patient had successful PTCA/Drug-Eluting Stent placement in the mid LAD. * Left Main Coronary Artery The LMCA is angiographically free of disease. * Left Anterior Descending There is a 20% stenosis in the Proximal LAD. There is a 20 mm long, 80% stenosis in the Mid LAD. Patient had angina after crossing the lesion with stent balloon. The lesion has a KIEL flow of 3 and has no thrombus present. An intervention was performed on the Mid LAD with a final stenosis of 0%. There were no lesion complications. The final KIEL flow was 3. Patent stent in LAD. * Circumflex There is a 20 mm long, 70-80% stenosis in the Proximal Circumflex. The lesion has a KIEL flow of 3 and has no thrombus present. An intervention was performed on the Proximal Circumflex with a final stenosis of 0%. There were no lesion complications. The final KIEL flow was 3. There is a 20% stenosis in the Mid Circumflex. * Right Coronary Artery There is a 50% stenosis in the Distal RCA. Patent stent in RCA. Brain MRI: IMPRESSION: Mild chronic small vessel ischemic changes. There are no areas of restricted diffusion to suggest an acute ischemic event. 05/03/18 Impressions: LVEF 55%. Normal LV chamber size, wall thickness and overall function. Mild segmental left ventricular systolic dysfunction. Mild left ventricular diastolic dysfunction. Normal right ventricular structure and function. No evidence of pulmonary hypertension. No significant valvular dysfunction. Past Med Surg Social Fam HX - Past Medical History Medical history: arthritis, diabetes, GERD, hyperlipidemia, hypertension, myocardial infarction Additional medical history: see attached records, BPH, shingles, bilateral carpal tunnel, hydronephrosis, neurogenic bladder (self catheterizes), deviated nasal septum, hypertrophy Psychiatric history: no psych history - Past Surgical History Surgical History: cholecystectomy, sinus surgery Additional surgical history: LASIK. R. CARPAL TUNNEL. PHLEBECTOMY - Social History Smoking Status: Former smoker Smokeless Tobacco Status: No Alcohol use: none Drug use: none - Family History Father Living Status: Mother Hx Family Cardiac Disorders: No Medications and Allergies Insulin ASPART [NovoLOG] 14 - 24 unit SQ TIDWM 04/01/17 [History] Ipratropium [place] 2 spr NS BID 01/07/18 [History] Insulin DETEMIR [Levemir Flextouch] 40 unit SQ HS 05/03/18 [History] SitaGLIPtin [Januvia] 100 mg PO DAILY 05/03/18 [History] Nitroglycerin 0.4 mg SL Q5MIN PRN #30 tab.subl 05/04/18 [Rx] Aspirin 81 mg PO DAILY #30 tab.chew 05/19/18 [Rx] Atorvastatin Calcium [Lipitor] 80 mg PO HS #30 tablet 05/19/18 [Rx] Furosemide [Lasix] 20 mg PO DAILY #30 tablet 05/19/18 [Rx] Metoprolol [Lopressor] 12.5 mg PO BID #30 tablet 05/19/18 [Rx] Potassium Chloride [Klor-Con 10] 10 meq PO DAILY #30 tablet.er 05/19/18 [Rx] Clopidogrel [Plavix] 75 mg PO DAILY 07/01/18 [History] Fluticasone Propionate Nasal [Flonase] 1 spr NS BID 07/01/18 [History] 3 Allergy/AdvReac Type Severity Reaction Status Date / Time Amoxicillin Allergy Hives Verified 07/05/18 00:22 clavulanic acid Allergy Hives Verified 07/05/18 00:22 [From Augmentin] wheat Allergy Swelling Verified 07/05/18 00:22 of Lip/Tongue/Throat All Systems Review: The remainder of the systems were reviewed and are negative - Constitutional Constitutional: no fever(s) - Cardiovascular Cardiovascular: as per HPI - Respiratory Respiratory: no cough - Gastrointestinal Gastrointestinal: no abdominal pain - Neurological Neurological: tingling (feet, chronic), no numbness - Hematological/Lymphatic Hematologic/Lymphatic: no easy bleeding Physical Examination Vital Signs, Last 4 Hours Temp Pulse Resp BP Pulse Ox 07/05/18 07:37 97.6 F 51 18 128/78 98 Other: General: NAD, AAO, cogent, anxious HEENT: left eye covered by dressing due to diplopia, + photophobia Neck: no JVD, no bruits Chest: CTA B/L, no W/R/C Heart: RRR, S1/S2, no S3/S4, no M/G/R Abdominal: BS +, soft, ND, NT Peripheral Pulses: radial pulse 2+ B/L, DP +/- B/L Skin/Extremities: no LE edema Neurological: grossly non-focal. Results 07/05/18 00:00 07/05/18 00:00 Lab Results 07/05/18 06:02 Troponin I 0.03 - Imaging and Cardiology Echo: report reviewed Cardiac cath: report reviewed, image reviewed Other Results: Tele reviewed - EKG Interpretation EKG results cardiology: personally reviewed Consult Discharge Plan - Plan Referrals: Shakira Jackson, [employer]ER [Primary Care Provider] -
--- NOTE | 2018-07-05 10:27 | Event Note ---
Date of Encounter: 07/05/18 Time of Encounter: 10:24 Patient seen and examined by hospitalist earlier this morning. Currently patient complains of intermittent sharp midsternal chest pain which is nonradiating. No aggravating or relieving factors. Chest pain is fleeting. No shortness of breath lightheadedness diaphoresis or nausea. Continues to experience diplopia this symptom manifested after cardiac catheter earlier in the week. Has already been seen by ophthalmology no other neurological symptoms at this time. Potassium was low this a.m. and replaced we will continue to monitor. Cardiology has been consulted and appreciate recommendations.
[2018-07-05] MEDS: Isosorbide MONOnitrate (24 HR) 30 MG TAB.ER.24H PO SCH (12:18)
[2018-07-05] MEDS ORDERED: Perflutren Lipid Microsphere 1.3 ML in 0.9 % Sodium Chloride 8.7 ML IVP ONE (14:20)
[2018-07-06] MEDS: Insulin LISPRO 300 UNITS/3 ML VIAL SQ SCH ×2 (00:25→06:03)
[2018-07-06] MEDS: *HR* Heparin 5,000 UNIT/ML VIAL SQ SCH (06:00)
--- NOTE | 2018-07-06 08:29 | Cardiology Progress Note ---
Date of Encounter: 07/06/18 Time of Encounter: 08:25 Assessment and Plan (1) Chest pain, rule out acute myocardial infarction Current Visit: Yes Status: Acute Per Cardiology: Trops - x 3. Echo showed EF 65%, NSWMA, no effusion. Atypical chest pain symptoms this morning, no events noted on telemetry. At length discussion with patient he prefers to continue with medical management and follow-up as scheduled in outpatient setting. Cardiology will sign off, reconsult as needed , follow-up arranged. Discussed and reviewed with Dr. Deshpande. (2) CAD (coronary artery disease) Current Visit: Yes Status: Chronic Per Cardiology: Recent LHC: 3-V CAD recent NOAH to mid LAD and prox-mLCx 07/01/18; NOAH x2 to RCA ; NOAH to mid LAD 05/18/18. On asa, plavix, statin, BB, ACEI, Imdur. Qualifiers: Coronary Disease-Associated Artery/Lesion type: [place] artery [place] vs. transplanted heart: [place] heart Associated angina: with stable angina Qualified Code(s): I25.118 - Atherosclerotic heart disease of [place] coronary artery with other forms of angina pectoris Discussion w patient/family: The assessment and plan as outlined above was discussed with the patient who expressed understanding and agreement. All questions were answered. Thank you for involving us in the care of your patient. Please call with any questions. Subjective Principal diagnosis: CP Interval history: Patient reports some mild chest twinges this morning at rest. Denies any chest pain currently. Denies any shortness of breath or palpitations. He reports continues to have ongoing left-sided double vision since last catheterization. Denies any acute new changes. Objective Vital Signs, Last 4 Hours Temp Pulse Resp BP Pulse Ox 07/06/18 06:52 97.6 F 51 17 125/82 99 General: Conversant, No Apparent Distress HEENT: Atraumatic, Normocephaly, Mucus Membranes Moist Neck: No JVD, Normal carotid pulses Cardiac: Reg Rate and Rhythm, Normal S1 and S2, No Murmur Lungs: Normal Breath Sounds, No Wheeze, Rales, Rhonchi Neuro: Alert and responsive, No focal deficits noted Abdomen: Soft, Non-Tender Skin: No rashes noted on visualized skin Musculoskeletal: No Chest Wall Tenderness Extremities: No Clubbing, No Cyanosis, No Edema, Normal Pulses Results 07/06/18 07:52 07/06/18 07:52 Laboratory Tests 07/05/18 07/05/18 07/05/18 00:00 00:00 06:02 INR 1.0 Troponin I 0.03 0.03 ITS Impressions Chest X-Ray 07/05/18 00:19 IMPRESSION: Cardiomegaly and mild pulmonary edema, unchanged. D/ / Yandel Dos Santos MD / Yandel Dos Santos MD Interpreting Provider: Yandel Dos Santos MD Echocardiogram Limited Views 07/05/18 11:13 Impressions: Limited study for LV, RV function and pericardial effusion. LVEF 65%. Normal LV chamber size, wall thickness and systolic function. Grossly normal RV size and function No pericardial effusion. Left Ventricular Wall Motion: Rest Echo Findings All wall segments showed normal motion. Findings: Comments * limited for LV, RV function and pericardial effusion Study Quality * Technically adequate exam. ECG Findings * Normal sinus rhythm. Left Ventricle * LVEF 65%. * Normal LV chamber size, wall thickness and systolic function. Right Ventricle * Grossly normal size and function Left Atrium * Normal left atrial size. Right Atrium * Normal right atrial size. Pericardium * No pericardial effusion. Active Medications Acetaminophen (Tylenol) 650 mg PO Q6HR PRN PRN Reason: Fever Stop: 01/04/19 08:48 Last Admin: 07/05/18 18:59 Dose: 650 mg Aspirin (Aspirin) 81 mg PO DAILY [facility]RAHAM Stop: 01/04/19 09:01 Last Admin: 07/05/18 08:39 Dose: 81 mg Atorvastatin Calcium (Lipitor) 80 mg PO HS ABRAHAM Stop: 01/04/19 21:01 Last Admin: 07/05/18 20:49 Dose: 80 mg Clopidogrel Bisulfate (Plavix) 75 mg PO DAILY ABRAHAM Stop: 01/04/19 09:01 Last Admin: 07/05/18 08:39 Dose: 75 mg Fluticasone Propionate (Flonase) 50 mcg NS BID [facility] PRN Reason: Protocol Stop: 01/04/19 09:01 Last Admin: 07/05/18 20:50 Dose: 50 mcg Furosemide (Lasix) 20 mg PO DAILY [facility] Stop: 01/04/19 09:01 Last Admin: 07/05/18 08:39 Dose: 20 mg Glucose (Gluctose) 15 gm PO ONCE PRN PRN Reason: Hypoglycemia Stop: 01/04/19 02:46 Glucose (Gluctose) 30 gm PO ONCE PRN PRN Reason: Hypoglycemia Stop: 01/04/19 02:46 Heparin Sodium (Porcine) (Heparin) 5,000 unit SQ Q8HCO [facility] Stop: 01/04/19 06:01 Last Admin: 07/06/18 06:00 Dose: 5,000 unit Insulin Human Lispro (Humalog) 0 units SQ Q6HR [facility] PRN Reason: Protocol Stop: 01/04/19 06:01 Last Admin: 07/06/18 06:03 Dose: 4 units Isosorbide Mononitrate (Imdur) 30 mg PO DAILY [facility] Stop: 01/04/19 11:16 Last Admin: 07/05/18 12:18 Dose: 30 mg Lisinopril (Zestril) 2.5 mg PO DAILY [facility] PRN Reason: Protocol Stop: 01/04/19 11:16 Last Admin: 07/05/18 12:19 Dose: 2.5 mg Metoprolol Tartrate (Lopressor) 12.5 mg PO BID [facility] Stop: 01/04/19 09:01 Last Admin: 07/05/18 20:49 Dose: 12.5 mg Nitroglycerin (Nitroglycerin) 0.4 mg SL Q5MIN PRN PRN Reason: Chest Pain Stop: 01/04/19 02:43 Potassium Chloride (Potassium Chloride) 10 meq PO DAILY [facility] Stop: 01/04/19 09:01 Last Admin: 07/05/18 08:39 Dose: 10 meq - Imaging and Cardiology Chest Xray: report reviewed Echo: report reviewed - EKG Interpretation EKG results cardiology: other (Telemetry reviewed with avg HR 56 past 24 hours, sinus rhythm with very rare PVCs and no significant events noted) Consult Discharge Plan - Plan Referrals: Shakira Jackson, [employer] [Primary Care Provider] -
[2018-07-06 08:38] LABS: Basophils # 0.1 K/mcL (0.0-0.2); Basophils % 0.5 %; Eosinophils # 0.3 K/mcL (0.0-0.6); Eosinophils % 2.7 %; Hematocrit 42.6 % (37.5-50.1); Hemoglobin 14.2 g/dL (12.9-16.9); Immature Granulocytes % 0.2 % (0-4); Lymphocytes # 2.4 K/mcL (0.6-4.6); Mean Corpuscular HGB Conc 33.3 g/dL (31.6-35.5); Mean Corpuscular Hemoglobin 28.1 pg (28.0-33.3); Mean Corpuscular Volume 84.2 fL (83.0-100.0); Mean Platelet Volume 10.3 fL (9.4-12.4); Monocytes # 0.8 K/mcL (0.0-1.3); Monocytes % 8.4 %; Platelet Count 230 K/mcL (140-400); Red Blood Count 5.06 M/mcL (4.19-5.50); Red Cell Distribution Width 14.6 % (11.5-14.5); Segmented Neutrophils % 63.2 %
[2018-07-06 08:56] LABS: BUN/Creatinine Ratio 13 (6-26); Blood Urea Nitrogen 14 mg/dL (6-20); Calcium 9.3 mg/dL (8.6-10.3); Carbon Dioxide 28 mEq/L (23-29); Chloride 104 mEq/L (98-107); Glucose 179 mg/dL (70-105); Osmolality,Calculated 289 (280-300); Potassium 4.1 mEq/L (3.5-5.1); Sodium 137 mEq/L (136-145); eGFR For Non-African Americans > 60 (> 60)
[2018-07-06] MEDS: Furosemide 20 MG TABLET PO SCH (10:17)
[2018-07-06] MEDS: Aspirin 81 MG TAB.CHEW PO SCH (10:18)
[2018-07-06] MEDS: Isosorbide MONOnitrate (24 HR) 30 MG TAB.ER.24H PO SCH (10:18)
--- NOTE | 2018-07-06 10:59 | Discharge Summary ---
- NOTES TO OUTPATIENT PROVIDER Notes to Outpatient Provider: Follow up with cardiology Orders not resulted at time of discharge: Pending orders 07/05/18 02:49 EKG [ECG 12 lead ECG] [ECG] Stat Date of Encounter: 07/06/18 Time of Encounter: 10:58 - Discharge Diagnosis (1) Chest pain, rule out acute myocardial infarction Priority: Primary Status: Acute (2) IDDM (insulin dependent diabetes mellitus) Priority: Primary Status: Chronic (3) Hypertension Priority: Secondary Status: Chronic Qualifiers: Hypertension type: essential hypertension Qualified Code(s): I10 - Essential (primary) hypertension (4) Neurogenic bladder Priority: Primary Status: Chronic (5) CAD (coronary artery disease) Priority: Secondary Status: Chronic Qualifiers: Coronary Disease-Associated Artery/Lesion type: [place] artery [place] vs. transplanted heart: [place] heart Associated angina: with stable angina Qualified Code(s): I25.118 - Atherosclerotic heart disease of [place] coronary artery with other forms of angina pectoris (6) Morbid obesity Priority: Secondary Status: Chronic (7) Diplopia Priority: Secondary Status: Acute Hospital course: Mr. Long is a 58 year old male past medical history of hypertension diabetes coronary disease underwent PCI in April 2018 after [place] and received total of 3 stents then presented again and 07/01/18 with unstable angina requiring another cardiac catheterization with 2 more stents placed. He was found to have severe 2 vessel disease. After procedure he did develop diplopia which he had been evaluated by neurology and an outside medical manager. He presented to [facility] ED with complaints of precordial pain described the pain as heavy pressure which radiated to his left arm he did take a nitroglycerin which did relieve his pain. Troponins were all negative 3 echo did show EF of 65% and spasticity and pain no effusion. Cardiology was consulted-patient prefers to continue with medical management and follow-up as scheduled outpatient setting. Advised patient to follow-up with cardiology as outpatient as well as repeat return to ED if chest pain continues. Patient verbalizes understanding he is hemodynamically stable at this time he is ready for discharge. Discharge discussed with: patient - Time Spent with Patient Total time spent providing and/or coordinating discharge services: - Discharge Medications Home Medications: Insulin ASPART [NovoLOG] 14 - 24 unit SQ TIDWM 04/01/17 [History] Ipratropium [place] 2 spr NS BID 01/07/18 [History] Insulin DETEMIR [Levemir Flextouch] 40 unit SQ HS 05/03/18 [History] SitaGLIPtin [Januvia] 100 mg PO DAILY 05/03/18 [History] Nitroglycerin 0.4 mg SL Q5MIN PRN #30 tab.subl 05/04/18 [Rx] Aspirin 81 mg PO DAILY #30 tab.chew 05/19/18 [Rx] Atorvastatin Calcium [Lipitor] 80 mg PO HS #30 tablet 05/19/18 [Rx] Furosemide [Lasix] 20 mg PO DAILY #30 tablet 05/19/18 [Rx] Metoprolol [Lopressor] 12.5 mg PO BID #30 tablet 05/19/18 [Rx] Potassium Chloride [Klor-Con 10] 10 meq PO DAILY #30 tablet.er 05/19/18 [Rx] Clopidogrel [Plavix] 75 mg PO DAILY 07/01/18 [History] Fluticasone Propionate Nasal [Flonase] 1 spr NS BID 07/01/18 [History] Allergies/Adverse Reactions: 3 Allergy/AdvReac Type Severity Reaction Status Date / Time Amoxicillin Allergy Hives Verified 07/05/18 00:22 clavulanic acid Allergy Hives Verified 07/05/18 00:22 [From Augmentin] wheat Allergy Swelling Verified 07/05/18 00:22 of Lip/Tongue/Throat Date of admission: 07/05/18 02:35 Primary care physician: Shakira Jackson CNP Discharging clinician: Angely Moncada Anticipated date of discharge: 07/06/18 - Constitutional Vitals: Temp Pulse Resp BP Pulse Ox 97.6 F 51 17 125/82 99 07/06/18 06:52 07/06/18 06:52 07/06/18 06:52 07/06/18 06:52 07/06/18 06:52 General appearance: Present: A&O X 3 Exam: Vitals: Reviewed General: Obese, NAD Skin: Diaphoretic, warm. HEENT: Moist mucous membranes. No conjunctivae pallor. Left eye pupil miotic and does not cross midline to the right side. Neck: No lymphadenopathy. No JVD. No carotid bruits. No palpable thyroid. Chest: Normal thoracic expansion. Normal breath sounds. Clear to auscultation. Heart: Normal S1 & S2; rhythmic. No rubs or murmurs. Abdomen: Obese, soft and non-tender to palpation. No peritoneal reaction. Extremities: No clubbing, cyanosis or edema. No calf tenderness. Normal distal pulses. Neurological: Awake, alert and oriented to person, place and time. No focal deficits. Psych: Affect appropriate. - Head Head exam: Present: atraumatic, normocephalic - Eye Eye exam: Present: PERRL, conjuntiva pink, sclera anicteric Pupils: Present: PERRL - Neck Neck exam general surgery: Present: supple, trachea midline. Absent: lymphadenopathy - Respiratory Respiratory exam: Present: CTAB. Absent: accessory muscle use, rales, rhonchi, wheezes - Cardiovascular Cardiovascular exam: Present: RRR, +S1, +S2. Absent: diastolic murmur, gallop, rubs, systolic murmur - GI/Abdominal GI/Abdominal exam: Present: normal bowel sounds, soft, no peritoneal signs. Absent: distended, tenderness - Extremities Exam Extremities exam: Present: warm, radial pulses palpable and symmetrical. Absent : calf tenderness, cyanotic, pedal edema - Neurological Exam Neurological exam: Present: CN II-XII intact, oriented X3, no focal deficits. Absent: pronater drift, facial droop, speech deficit - Skin Skin exam: Present: dry, intact - Patient Status Disposition: Home, Self-Care Condition: Fair Functional capacity at discharge: independent ambulation Overall status at discharge: patient is back to baseline - Discharge Instructions Instructions: Chest Pain (DC) Follow Up With: Shakira Jackson, [employer] [Primary Care Provider] - - Diet and Activity Activity: as per physical therapy Diet: low fat, low cholesterol
[2018-07-06 11:05] VITALS: BP 126/80
--- NOTE | 2018-07-07 17:46 | Electrocardiograph Report ---
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
== END 2018-07-06 15:40 | disposition home or self-care (01) ==
LOC: 3BNU 00:01 → EMEROOARM 00:01 → 3BNU 03:20
PROVIDERS: ADMIT Internal Medicine; ATTEND Internal Medicine

== ENCOUNTER 2020-05-26 14:57 | Observation (INO) ==
[2020-05-26 15:33] LABS: Basophils % 0.3 %; Eosinophils # 0.2 K/mcL (0.0-0.6); Eosinophils % 1.7 %; Hematocrit 42.2 % (37.5-50.1); Immature Granulocytes % 0.3 % (0-4); Lymphocytes # 2.4 K/mcL (0.6-4.6); Lymphocytes % 22.6 %; Mean Corpuscular HGB Conc 33.2 g/dL (31.6-35.5); Mean Corpuscular Hemoglobin 28.3 pg (28.0-33.3); Mean Corpuscular Volume 85.4 fL (83.0-100.0); Mean Platelet Volume 10.3 fL (9.4-12.4); Monocytes # 0.8 K/mcL (0.0-1.3); Monocytes % 7.7 %; Neutrophils # 7.1 K/mcL (1.6-8.9); Platelet Count 267 K/mcL (140-400); Red Blood Count 4.94 M/mcL (4.19-5.50); Red Cell Distribution Width 13.7 % (11.5-14.5); Segmented Neutrophils % 67.4 %; White Blood Count 10.6 K/mcL (4.3-11.1)
[2020-05-26 16:03] LABS: BUN/Creatinine Ratio 14 (6-26); Blood Urea Nitrogen 19 mg/dL (8-23); Carbon Dioxide 24 mEq/L (23-29); Chloride 103 mEq/L (98-107); Glucose 104 mg/dL (70-105); Osmolality,Calculated 289 (280-300); Potassium 2.9 mEq/L (3.5-5.1); Sodium 138 mEq/L (136-145); Troponin I < 0.03 ng/mL (< 0.04); eGFR For African Americans > 60 (> 60); eGFR For Non-African Americans 54 (> 60)
[2020-05-26] MEDS ORDERED: Aspirin 81 MG TAB.CHEW PO STA (16:14)
[2020-05-26] MEDS ORDERED: Nitroglycerin 0.4 MG TAB.SUBL SL PRN ×2 (16:30→17:36)
[2020-05-26] MEDS ORDERED: Potassium Effervescent 25 MEQ TABLET.EFF PO ONE (16:31)
[2020-05-26] MEDS ORDERED: Acetaminophen 325 MG TABLET PO PRN (17:13)
[2020-05-26] MEDS ORDERED: Ondansetron ODT 4 MG TAB.RAPDIS SL PRN (17:13)
[2020-05-26] MEDS ORDERED: Nystatin Ointment 15 GM TUBE TP PRN (17:36)
[2020-05-26 17:41] LABS: Magnesium 2.1 mg/dL (1.6-2.6)
[2020-05-26] MEDS: Pantoprazole 40 MG VIAL IVP SCH (20:40)
[2020-05-26] MEDS: Topiramate 25 MG TABLET PO SCH (20:40)
[2020-05-26] MEDS: Bumetanide 1 MG TABLET PO SCH (20:40)
[2020-05-26] MEDS: Fluticasone Propionate Nasal 50 MCG/SPRAY BOTTLE NS SCH (21:23)
[2020-05-27 02:55] LABS: INR 1.2; Prothrombin Time 13.6 Seconds (9.4-12.1)
[2020-05-27 03:24] LABS: Alanine Aminotransferase 22 Units/L (7-52); Albumin 3.6 g/dL (3.5-5.7); Albumin/Globulin Ratio 1.4 (1.1-2.2); Alkaline Phosphatase 93 Units/L (34-104); Aspartate Amino Transferase 21 Units/L (13-39); BUN/Creatinine Ratio 12 (6-26); Blood Urea Nitrogen 17 mg/dL (8-23); Calcium 8.5 mg/dL (8.6-10.3); Carbon Dioxide 24 mEq/L (23-29); Chloride 102 mEq/L (98-107); Globulin 2.6 g/dL (2.4-3.5); Glucose 179 mg/dL (70-105); Magnesium 1.9 mg/dL (1.6-2.6); Osmolality,Calculated 290 (280-300); Potassium 3.7 mEq/L (3.5-5.1); Sodium 137 mEq/L (136-145); Total Protein 6.2 g/dL (6.4-8.9); Troponin I < 0.03 ng/mL (< 0.04); eGFR For African Americans > 60 (> 60); eGFR For Non-African Americans 51 (> 60)
[2020-05-27] MEDS: Pantoprazole 40 MG VIAL IVP SCH (05:51)
[2020-05-27] MEDS: Bumetanide 1 MG TABLET PO SCH ×2 (07:59→15:58)
[2020-05-27] MEDS: Topiramate 25 MG TABLET PO SCH (07:59)
[2020-05-27] MEDS: Fluticasone Propionate Nasal 50 MCG/SPRAY BOTTLE NS SCH (08:00)
[2020-05-27] MEDS ORDERED: lisinopriL 5 MG TABLET PO SCH (09:00)
[2020-05-27] MEDS ORDERED: *HR* SitaGLIPtin 100 MG TABLET PO SCH (09:00)
[2020-05-27] MEDS ORDERED: Insulin DETEMIR 100 UNIT/ML X5UNITS SQ SCH (09:00)
[2020-05-27] MEDS ORDERED: Aspirin Enteric Coated 81 MG Tablet PO SCH (09:00)
[2020-05-27] MEDS: Sucralfate 1 GM TABLET PO SCH ×2 (11:20→15:58)
[2020-05-27] MEDS ORDERED: Regadenoson 0.4 MG/5 ML SYRINGE IVP ONE (12:55)
[2020-05-27 15:05] VITALS: BP 113/73
== END 2020-05-27 16:45 | disposition home or self-care (01) ==
LOC: EMEROOARM 14:57 → 3BNU 14:57
PROVIDERS: ADMIT Internal Medicine; ATTEND Internal Medicine